=== PATIENT | female | born 1950 | race Caucasian/White ===

== ENCOUNTER → 2017-12-02 06:50 | Outpatient (CLI) | payer OTHER, SELFPAY ==
[2017-12-02 08:12] LABS: Hemoglobin A1C% w Est Avg Glu 7.5 % (4.0-6.0)
[2017-12-02 08:14] LABS: Alanine Aminotransferase 28 IU/L (9-52); Albumin 4.5 g/dL (3.5-5.0); Albumin Globulin Ratio 1.6 (1.0-2.8); Alkaline Phosphatase 136 U/L (38-126); Aspartate Aminotransferase 23 IU/L (14-36); BUN Creatinine Ratio 48.8 (6-22); Bilirubin Total 0.5 mg/dL (0.2-1.3); Calcium 9.4 mg/dL (8.4-10.2); Estimated Glomerular Filt Rate > 60.0 mL/min (>60); Globulin 2.9 g/dL (1.7-4.1); Glucose 161 mg/dL (80-110); HEMOLYSIS < 15 (0-50); Potassium 4.1 mmol/L (3.4-5.1); Sodium 139 mmol/L (137-145); Total Protein 7.4 g/dL (6.3-8.2)
== END ==
PROVIDERS: PCP Internal Medicine; Visit Provider Internal Medicine
DX: I10 Essential (primary) hypertension (principal); E11.9 Type 2 diabetes mellitus without complications
CPT/HCPCS: 36415; 80053; 83036

== ENCOUNTER → 2018-03-01 07:08 | Outpatient (CLI) | payer OTHER, MEDICARE, SELFPAY ==
[2018-03-01 08:32] LABS: BUN Creatinine Ratio 38.9 (6-22); Blood Urea Nitrogen 35 mg/dL (7-17); Calcium 10.1 mg/dL (8.4-10.2); Carbon Dioxide 28 mmol/L (22-32); Chloride 101 mmol/L (98-107); Estimated Glomerular Filt Rate > 60.0 mL/min (>60); Glucose 169 mg/dL (80-110); HEMOLYSIS < 15 (0-50); Sodium 140 mmol/L (137-145)
[2018-03-01 08:33] LABS: Hemoglobin A1C% w Est Avg Glu 7.5 % (4.0-6.0)
== END ==
PROVIDERS: PCP Internal Medicine; Visit Provider Internal Medicine
DX: E11.65 Type 2 diabetes mellitus with hyperglycemia (principal)
CPT/HCPCS: 36415; 80048; 83036

== ENCOUNTER → 2018-05-28 06:44 | Outpatient (CLI) | payer OTHER, SELFPAY ==
[2018-05-28 08:12] LABS: Hemoglobin A1C% w Est Avg Glu 8.7 % (4.0-6.0)
[2018-05-28 08:31] LABS: BUN Creatinine Ratio 38.9 (6-22); Blood Urea Nitrogen 35 mg/dL (7-17); Carbon Dioxide 26 mmol/L (22-32); Chloride 102 mmol/L (98-107); Estimated Glomerular Filt Rate > 60.0 mL/min (>60); Glucose 176 mg/dL (80-110); HEMOLYSIS < 15 (0-50); Potassium 5.1 mmol/L (3.4-5.1); Sodium 142 mmol/L (137-145)
== END ==
PROVIDERS: PCP Internal Medicine; Visit Provider Internal Medicine
DX: E11.65 Type 2 diabetes mellitus with hyperglycemia (principal); I10 Essential (primary) hypertension
CPT/HCPCS: 36415; 80048; 83036

== ENCOUNTER → 2018-09-06 06:47 | Outpatient (CLI) | payer OTHER, SELFPAY ==
[2018-09-06 08:58] LABS: Hemoglobin A1C% w Est Avg Glu 7.7 % (4.0-6.0)
[2018-09-06 09:13] LABS: Blood Urea Nitrogen 36 mg/dL (7-17); Calcium 9.9 mg/dL (8.4-10.2); Carbon Dioxide 25 mmol/L (22-32); Chloride 102 mmol/L (98-107); Estimated Glomerular Filt Rate > 60.0 mL/min (>60); Glucose 153 mg/dL (80-110); HEMOLYSIS < 15 (0-50); Potassium 4.8 mmol/L (3.4-5.1); Sodium 140 mmol/L (137-145)
[2018-09-06 10:27] LABS: Creatinine Urine Random 64.1 mg/dL
[2018-09-06 10:29] LABS: Microalbumi Creatinin Ratio Ur 57.7 ug/mg CR (<30); Microalbumin Urine Random 3.7 mg/dL (0-1.6)
== END ==
PROVIDERS: PCP Internal Medicine; Visit Provider Internal Medicine
DX: E11.9 Type 2 diabetes mellitus without complications (principal); E11.65 Type 2 diabetes mellitus with hyperglycemia
CPT/HCPCS: 36415; 80048; 82043; 82570; 83036

== ENCOUNTER → 2018-11-04 09:15 | Outpatient (CLI) | payer OTHER, SELFPAY ==
--- NOTE | 2018-11-04 | DI.MG.S_ITS ---
BILATERAL DIGITAL SCREENING MAMMOGRAM 3D/2D WITH CAD: 11/04/2018 CLINICAL: Routine screening. Comparison is made to exams dated: 10/31/2017 mammogram, 10/27/2016 mammogram, and 10/19/2015 mammogram - [facility]. There are scattered fibroglandular elements in both breasts. Current study was also evaluated with a Computer Aided Detection (CAD) system. No significant masses, calcifications, or other findings are seen in either breast. There has been no significant interval change. IMPRESSION: NEGATIVE There is no mammographic evidence of malignancy. A 1 year screening mammogram is recommended. This exam was interpreted at Station ID: [id number]. NOTE: For mammograms, a report in lay terms will be sent to the patient. Approximately 15% of breast malignancies will not be visualized mammographically. In the management of a palpable breast mass, a negative mammogram must not discourage biopsy of a clinically suspicious lesion. Electronically Signed By: Casey juarez/[place]:11/04/2018 11:15:26 copy to: Ray Gordon letter sent: Normal Exam ACR BI-RADS Category 1: Negative 3341F
== END ==
PROVIDERS: PCP Internal Medicine; Visit Provider Internal Medicine
DX: Z12.31 Encounter for screening mammogram for malignant neoplasm of breast (principal)
CPT/HCPCS: 77063; 77067

== ENCOUNTER → 2018-12-09 10:37 | Outpatient (CLI) | payer MEDICARE, OTHER, SELFPAY ==
[2018-12-09 12:24] LABS: Alanine Aminotransferase 28 IU/L (9-52); Albumin 4.3 g/dL (3.5-5.0); Albumin Globulin Ratio 1.8 (1.0-2.8); Alkaline Phosphatase 120 U/L (38-126); Aspartate Aminotransferase 23 IU/L (14-36); BUN Creatinine Ratio 44.4 (6-22); Bilirubin Total 0.4 mg/dL (0.2-1.3); Blood Urea Nitrogen 40 mg/dL (7-17); Calcium 10.2 mg/dL (8.4-10.2); Carbon Dioxide 25 mmol/L (22-32); Chloride 103 mmol/L (98-107); Estimated Glomerular Filt Rate > 60.0 mL/min (>60); Globulin 2.4 g/dL (1.7-4.1); Glucose 106 mg/dL (80-110); HEMOLYSIS < 15 (0-50); Potassium 5.3 mmol/L (3.4-5.1); Sodium 139 mmol/L (137-145); Total Protein 6.7 g/dL (6.3-8.2)
[2018-12-09 12:25] LABS: Hemoglobin A1C% w Est Avg Glu 6.9 % (4.0-6.0)
== END ==
PROVIDERS: PCP Internal Medicine; Visit Provider Internal Medicine
DX: E11.65 Type 2 diabetes mellitus with hyperglycemia (principal); E66.01 Morbid (severe) obesity due to excess calories; I10 Essential (primary) hypertension; Z68.41 Body mass index [BMI] 40.0-44.9, adult
CPT/HCPCS: 36415; 80053; 83036

== ENCOUNTER → 2019-03-16 12:45 | Outpatient (CLI) | payer MEDICARE, OTHER, SELFPAY | PROVIDERS: PCP Internal Medicine | DX: M85.80 Other specified disorders of bone density and structure, unspecified site (principal) | CPT/HCPCS: 77080; 77081 ==

== ENCOUNTER → 2019-05-05 07:58 | Outpatient (CLI) | payer MEDICARE, OTHER, SELFPAY ==
[2019-05-05 09:41] LABS: Alanine Aminotransferase 18 IU/L (9-52); Albumin 4.5 g/dL (3.5-5.0); Albumin Globulin Ratio 1.7 (1.0-2.8); Alkaline Phosphatase 136 U/L (38-126); Aspartate Aminotransferase 26 IU/L (14-36); Bilirubin Total 0.4 mg/dL (0.2-1.3); Blood Urea Nitrogen 43 mg/dL (7-17); Calcium 10.1 mg/dL (8.4-10.2); Carbon Dioxide 25 mmol/L (22-32); Chloride 104 mmol/L (98-107); Estimated Glomerular Filt Rate 55.5 mL/min (>60); Globulin 2.7 g/dL (1.7-4.1); Glucose 137 mg/dL (80-110); HEMOLYSIS < 15 (0-50); Sodium 138 mmol/L (137-145); Total Protein 7.2 g/dL (6.3-8.2)
[2019-05-05 15:58] LABS: Hemoglobin A1C% w Est Avg Glu 6.4 % (4.0-6.0)
== END ==
PROVIDERS: PCP Internal Medicine; Visit Provider Internal Medicine
DX: E11.9 Type 2 diabetes mellitus without complications (principal); E66.01 Morbid (severe) obesity due to excess calories; E78.2 Mixed hyperlipidemia; I10 Essential (primary) hypertension; Z68.41 Body mass index [BMI] 40.0-44.9, adult
CPT/HCPCS: 36415; 80053; 83036

== ENCOUNTER 2019-09-01 08:38 | Day surgery (SDC) | payer MEDICARE, OTHER, SELFPAY ==
[2019-09-01] VITALS (7 sets, daily range): BP systolic 80–125; BP diastolic 36–69; PULSE 15–59; RESP 12–68; TEMP 36.1–36.4; O2SAT 15–100; BMI 38.7
[2019-09-01] MEDS: SODIUM CHLORIDE 0.9% 1,000 ML 200 ML IV (09:51)
--- NOTE | 2019-09-01 10:03 | PM.HP.1 ---
History of Present Illness History of Present Illness Date Patient Seen: 09/01/19 Time Patient Seen: 10:03 Chief complaint: [id number] Narrative: Patient is a woman here for screening colonoscopy. Last exam was 5 years ago. She has a personal history of polyps. No family history of colon cancer. Patient History Medical History Abscess of left lung with pneumonia (Acute) Allergic rhinitis (Chronic 1965) Anxiety (Chronic ~1959) Asthma (Chronic 1991) Chicken pox (Resolved 1968) Chronic cough (Resolved) Controlled diabetes mellitus (Chronic 2012) Eczema (Chronic ~1979) Essential hypertension (Chronic 03/19/11) Finger fracture (Resolved 1968) Gout (Chronic) H/O: pneumonia (Acute) Hammertoe, bilateral (Resolved) Hemorrhoids (Resolved 2011) Herpes (Chronic 1989) History of adenomatous polyp of colon (Inactive 2009) History of renal calculi (Inactive 2009) Lumbar spine pain (Chronic 1965) Measles (Resolved 1958) Metabolic syndrome (Chronic) Migraines (Chronic ~1979) Mixed hyperlipidemia (Chronic 03/19/11) Morbid obesity with body mass index (BMI) of 40.0 to 44.9 in adult (Chronic 12/25/15) Mumps (Resolved 1997) Osteopenia (Chronic 03/06/17) Recurrent major depressive disorder, in partial remission (Chronic 03/19/11) Rosacea (Chronic 09/25/15) Scoliosis (Chronic 1965) Surgical site infection (Resolved 08/23/14) Type 2 diabetes mellitus with hyperglycemia (Chronic 10/26/12) Wears glasses (Acute) Surgical History History of foot surgery (Resolved 12/2008) History of foot surgery (Resolved 07/16/09) History of lithotripsy (Resolved 02/24/10) History of lithotripsy (Resolved 05/28/10) History of surgery (Resolved 08/23/14) History of surgery (Resolved 08/25/14) Status post bunionectomy (Resolved) Status post laminectomy (Resolved 07/27/14) Family & Social History Family History Father Lung cancer Hypertension Stroke Alcoholic High cholesterol Grandfather Heart disease Heart attack Mother Family hx colonic polyps Hypertension Dementia Kidney failure Grandmother Cirrhosis Broken hip Grandmother Dementia Grandfather Appendicitis Sister No problems noted. Social History: household members spouse lives independently Yes caregiver/support person No Tobacco & Substance use: Smoking Status Never smoker alcohol intake never Substance Use Type does not use Meds Home Medications and Allergies Home Medications Medication Instructions Recorded Confirmed Type calcium carbonate-vitamin D3 500 mg PO BID #0 04/09/11 09/01/19 History [Oyster Shell Calcium-Vit D3] fluocinolone acetonide oil 20 ml OT PRN #0 06/05/11 09/01/19 History [DermOtic Oil] cholecalciferol (vitamin D3) 1,000 unit PO QDAY #0 06/08/17 09/01/19 History [Vitamin D3] fluticasone propionate 1 spray INTRANASAL HS #16 gm 09/28/17 09/01/19 Rx alprazolam 0.5 mg tablet See Rx Instructions PO TID PRN #90 09/13/18 09/01/19 Rx tab albuterol sulfate 90 mcg/actuation 1 puff INHALATION Q4-6H PRN #18 10/08/18 09/01/19 Rx aerosol inhaler gram metronidazole 0.75 % topical cream 1 applictn TOPICAL BID #0 gram 12/17/18 09/01/19 History triamcinolone acetonide 0.1 % 1 applictn TOP BID #30 gram 12/17/18 09/01/19 Rx topical ointment gemfibrozil 600 mg PO BID #180 tab 12/27/18 09/01/19 Rx allopurinol 300 mg PO Q DAY #30 tab 02/21/19 09/01/19 Rx sertraline 50 mg tablet 100 mg PO QDAY #180 tab 02/21/19 09/01/19 Rx acyclovir 400 mg tablet 400 mg PO BID PRN #60 tab 03/29/19 09/01/19 Rx clonazepam 0.5 mg tablet See Rx Instructions .ROUTE 05/05/19 09/01/19 Rx .COMPLEX #270 tab clobetasol 0.05 % scalp solution 1 applictn TOP BID PRN 05/13/19 09/01/19 History metformin 1,000 mg tablet See Rx Instructions .ROUTE 05/16/19 09/01/19 Rx .COMPLEX #180 tablet lisinopril 10 mg tablet 10 mg PO DAILY #90 tab 07/25/19 09/01/19 Rx meloxicam [Mobic] 15 mg PO DAILY 09/01/19 09/01/19 History Allergies Allergy/AdvReac Type Severity Reaction Status Date / Time latex [LATEX] Allergy Severe RASH/ITCHING/NAUSEA Verified 09/01/19 08:56 AND VOMITING pravastatin [PRAVASTATIN] Allergy Severe HIVES Verified 09/01/19 08:56 sulfamethizole Allergy Severe HIVES Verified 09/01/19 08:56 [SULFAMETHIZOLE] trimethoprim [TRIMETHOPRIM] Allergy Severe HIVES Verified 09/01/19 08:56 onion Allergy Intermediate HIVES Verified 09/01/19 08:56 tomato Allergy Intermediate HIVES Verified 09/01/19 08:56 simvastatin [SIMVASTATIN] AdvReac Mild NAUSEA/ Verified 09/01/19 08:56 MUSCULAR PAIN INTERNAL SUTURES Allergy Severe THEY DO Uncoded 05/13/19 09:03 NOT DISOLVE WALNUTS Allergy Severe HIVES Uncoded 05/13/19 09:03 CANTELOPE Allergy Intermediate HIVES Uncoded 05/13/19 09:03 Review of Systems Review of Systems ROS: Yes All systems reviewed with the patient and are negative except as otherwise documented Exam Vital Signs (past 8 hours): - 09/01/19 09:17 Temperature 97.0 F L Pulse Rate 15 L Respiratory Rate 68 H Blood Pressure 125/69 Pulse Oximetry 15 L Oxygen Delivery Method Room Air Oxygen Flow Rate 98 Narrative Exam Narrative: Pleasant cooperative patient no apparent distress. Lungs are clear to auscultation. No rales or rhonchi. Heart regular rate and rhythm no murmur gallop. Abdomen is soft nontender without mass. No obvious hernias. Patient is alert and oriented x3. Assessment & Plan Assessment & Plan narrative: The patient for a screening colonoscopy. I have discussed the procedure with them. Risks of bleeding, perforation which would necessitate major operation, failure to find remove all lesions, the potential tattoo were all discussed. All questions were answered. They wished to proceed.
--- NOTE | 2019-09-01 10:04 | PM.PREOP ---
Pre-operative Note Interval Note History & Physical reviewed/Exam performed by Physician: Yes Changes to H&P: No ASA Class (for procedural sedation): II
[2019-09-01] MEDS: fentaNYL 250 MCG/5 ML INJ IV (10:11)
[2019-09-01] MEDS: MIDAZOLAM 5 MG/ML VIAL 1 MG IV (10:15)
--- NOTE | 2019-09-01 10:25 | SUR.OPER ---
GLASSES IN LABELED CASE TO PACU WITH PATIENT
--- NOTE | 2019-09-01 10:39 | PM.OP.ENDO ---
Operative Date/Time/Diagnoses Date of procedure: 09/01/19 Time of procedure: 10:39 Pre-op diagnosis: History of polyps Post-op diagnosis: same Procedure & Clinicians Study performed: Colonoscopy Same procedure as scheduled: Yes Indications: Screening. Last exam 5 years ago. Procedure Notes SCOAP/Timeout: Performed Procedure in detail: The patient was placed in the left lateral decubitus position and underwent IV sedation directed by the surgeon consisting of fentanyl and Versed. Digital exam was unremarkable. The scope was inserted and advanced through the rectum into the sigmoid, descending, transverse, and ascending colon. Patient was noted to have sigmoid diverticulosis. The cecum was reached identified by the ileocecal valve and the appendiceal opening. No Polyps were found. The scope ultimately was retroflexed in the rectum. The appearance was normal. The scope was removed and the patient tolerated the procedure well. Prep was very good Scope withdrawal time: 7 minutes Sedation minutes: 21 Findings: diverticulosis Post-procedure Recommendations: Colonscopy in 5 years (Due to history of adenomatous polyps) Follow up: as needed Disposition: PACU
== END 2019-09-01 11:44 | disposition home or self-care (01) ==
PROVIDERS: PCP Internal Medicine; Referring Provider Specialist; Visit Provider Specialist
PROC: 0DJD8ZZ Inspection of Lower Intestinal Tract, Via Natural or Artificial Opening Endoscopic (ICD-10-PCS; CPT 45378; principal; 2019-09-01 09:45)
DX: Z12.11 Encounter for screening for malignant neoplasm of colon (principal); Z86.010 Personal history of colon polyps; K57.30 Diverticulosis of large intestine without perforation or abscess without bleeding
CPT/HCPCS: G0105; 99152; J2250; J3010

== ENCOUNTER → 2019-10-31 08:22 | Outpatient (CLI) | payer MEDICARE, OTHER, SELFPAY ==
[2019-10-31 09:36] LABS: Alanine Aminotransferase 16 IU/L (<35); Albumin 4.6 g/dL (3.5-5.0); Albumin Globulin Ratio 1.5 (1.0-2.8); Alkaline Phosphatase 143 U/L (38-126); Aspartate Aminotransferase 27 IU/L (14-36); BUN Creatinine Ratio 41.2 (6-22); Bilirubin Total 0.3 mg/dL (0.2-1.3); Blood Urea Nitrogen 47 mg/dL (7-17); Calcium 10.3 mg/dL (8.4-10.2); Carbon Dioxide 24 mmol/L (22-32); Chloride 107 mmol/L (98-107); Cholesterol 167 mg/dL (140-199); Estimated Glomerular Filt Rate 47.5 mL/min (>60); Glucose 133 mg/dL (80-110); HDL Cholesterol 50 mg/dL (40-60); HEMOLYSIS < 15 (0-50); LDL Cholesterol Calculated 96 mg/dL (<100); Potassium 5.1 mmol/L (3.4-5.1); Sodium 139 mmol/L (137-145); Total Protein 7.6 g/dL (6.3-8.2); Triglycerides 107 mg/dL (35-150)
[2019-10-31 09:45] LABS: Hemoglobin A1C% w Est Avg Glu 6.5 % (4.0-6.0)
== END ==
PROVIDERS: PCP Internal Medicine; Referring Provider Internal Medicine; Visit Provider Internal Medicine
DX: E11.9 Type 2 diabetes mellitus without complications (principal); E88.81 Metabolic syndrome and other insulin resistance; I10 Essential (primary) hypertension
CPT/HCPCS: 36415; 80053; 80061; 83036

== ENCOUNTER → 2019-12-31 14:22 | Outpatient (CLI) | payer MEDICARE, OTHER, SELFPAY ==
--- NOTE | 2019-12-31 14:25 | DI.MG.S_ITS ---
BILATERAL DIGITAL SCREENING MAMMOGRAM 3D/2D WITH CAD: 12/31/2019 CLINICAL: Routine screening. Comparison is made to exams dated: 11/04/2018 mammogram, 10/31/2017 mammogram, and 10/27/2016 mammogram - [facility]. There are scattered fibroglandular elements in both breasts. Current study was also evaluated with a Computer Aided Detection (CAD) system. No significant masses, calcifications, or other findings are seen in either breast. There has been no significant interval change. IMPRESSION: NEGATIVE There is no mammographic evidence of malignancy. A 1 year screening mammogram is recommended. This exam was interpreted at Station ID: [id number]. NOTE: For mammograms, a report in lay terms will be sent to the patient. Approximately 15% of breast malignancies will not be visualized mammographically. In the management of a palpable breast mass, a negative mammogram must not discourage biopsy of a clinically suspicious lesion. Electronically Signed By: Casey cobb/argentina:01/02/2020 09:02:18 letter sent: Normal Exam ACR BI-RADS Category 1: Negative 3341F
== END ==
PROVIDERS: PCP Internal Medicine; Referring Provider Internal Medicine; Visit Provider Internal Medicine
DX: Z12.31 Encounter for screening mammogram for malignant neoplasm of breast (principal)
CPT/HCPCS: 77063; 77067

== ENCOUNTER → 2020-05-04 08:12 | Outpatient (CLI) | payer MEDICARE, OTHER, SELFPAY ==
[2020-05-04 09:06] LABS: Hemoglobin A1C% w Est Avg Glu 6.4 % (4.0-6.0)
[2020-05-04 09:30] LABS: Alanine Aminotransferase 17 IU/L (<35); Albumin 4.2 g/dL (3.5-5.0); Albumin Globulin Ratio 1.6 (1.0-2.8); Alkaline Phosphatase 138 U/L (38-126); Aspartate Aminotransferase 25 IU/L (14-36); BUN Creatinine Ratio 37.1 (6-22); Bilirubin Total 0.4 mg/dL (0.2-1.3); Blood Urea Nitrogen 46 mg/dL (7-17); Carbon Dioxide 25 mmol/L (22-32); Chloride 106 mmol/L (98-107); Cholesterol 168 mg/dL (140-199); Estimated Glomerular Filt Rate 43.1 mL/min (>60); Globulin 2.6 g/dL (1.7-4.1); Glucose 126 mg/dL (80-110); HDL Cholesterol 53 mg/dL (40-60); HEMOLYSIS < 15 (0-50); LDL Cholesterol Calculated 92 mg/dL (<100); Potassium 5.2 mmol/L (3.4-5.1); Sodium 139 mmol/L (137-145); Total Protein 6.8 g/dL (6.3-8.2); Triglycerides 113 mg/dL (35-150)
== END ==
PROVIDERS: PCP Internal Medicine; Referring Provider Internal Medicine; Visit Provider Internal Medicine
DX: E11.9 Type 2 diabetes mellitus without complications (principal); E78.2 Mixed hyperlipidemia; E88.81 Metabolic syndrome and other insulin resistance; I10 Essential (primary) hypertension
CPT/HCPCS: 36415; 80053; 80061; 83036

== ENCOUNTER → 2020-11-02 07:56 | Outpatient (CLI) | payer MEDICARE, OTHER, SELFPAY ==
[2020-11-02 08:35] LABS: Hemoglobin A1C% w Est Avg Glu 6.4 % (4.0-6.0)
[2020-11-02 09:48] LABS: Alanine Aminotransferase 21 IU/L (<35); Albumin 4.3 g/dL (3.5-5.0); Albumin Globulin Ratio 1.5 (1.0-2.8); Alkaline Phosphatase 152 U/L (38-126); Aspartate Aminotransferase 34 IU/L (14-36); BUN Creatinine Ratio 36.1 (6-22); Bilirubin Total 0.3 mg/dL (0.2-1.3); Blood Urea Nitrogen 44 mg/dL (7-17); Calcium 10.3 mg/dL (8.4-10.2); Carbon Dioxide 23 mmol/L (22-32); Chloride 106 mmol/L (98-107); Estimated Glomerular Filt Rate 43.8 mL/min (>60); Globulin 2.8 g/dL (1.7-4.1); Glucose 127 mg/dL (80-110); HEMOLYSIS < 15 (0-50); Potassium 4.8 mmol/L (3.4-5.1); Sodium 137 mmol/L (137-145); Total Protein 7.1 g/dL (6.3-8.2)
== END ==
PROVIDERS: PCP Internal Medicine; Referring Provider Internal Medicine; Visit Provider Internal Medicine
DX: E11.9 Type 2 diabetes mellitus without complications (principal); E78.2 Mixed hyperlipidemia; I10 Essential (primary) hypertension
CPT/HCPCS: 36415; 80053; 83036

== ENCOUNTER → 2020-12-31 16:34 | Outpatient (CLI) | payer MEDICARE, OTHER, SELFPAY ==
--- NOTE | 2020-12-31 16:35 | DI.MG.S_ITS ---
BILATERAL DIGITAL SCREENING MAMMOGRAM 3D/2D WITH CAD: 12/31/2020 CLINICAL: Routine screening. Comparison is made to exams dated: 12/31/2019 mammogram, 11/04/2018 mammogram, 10/31/2017 mammogram, 10/27/2016 mammogram, and 10/19/2015 mammogram - [facility]. The tissue of both breasts is predominantly fatty. Current study was also evaluated with a Computer Aided Detection (CAD) system. No significant masses, calcifications, or other findings are seen in either breast. There has been no significant interval change. IMPRESSION: NEGATIVE There is no mammographic evidence of malignancy. A 1 year screening mammogram is recommended. This exam was interpreted at Station ID: [id number]. NOTE: For mammograms, a report in lay terms will be sent to the patient. Approximately 15% of breast malignancies will not be visualized mammographically. In the management of a palpable breast mass, a negative mammogram must not discourage biopsy of a clinically suspicious lesion. Electronically Signed By: Clark grace/argentina:12/31/2020 17:25:41 letter sent: Normal Exam ACR BI-RADS Category 1: Negative 3341F
== END ==
PROVIDERS: PCP Internal Medicine; Referring Provider Internal Medicine; Visit Provider Internal Medicine
DX: Z12.31 Encounter for screening mammogram for malignant neoplasm of breast (principal)
CPT/HCPCS: 77063; 77067

== ENCOUNTER → 2021-05-08 09:00 | Outpatient (CLI) | payer MEDICARE, OTHER, SELFPAY ==
[2021-05-08 10:18] LABS: Hemoglobin A1C% w Est Avg Glu 6.2 % (4.0-6.0)
[2021-05-08 11:13] LABS: Alanine Aminotransferase 24 IU/L (<35); Albumin 4.4 g/dL (3.5-5.0); Albumin Globulin Ratio 1.8 (1.0-2.8); Alkaline Phosphatase 133 U/L (38-126); Aspartate Aminotransferase 36 IU/L (14-36); BUN Creatinine Ratio 32.3 (6-22); Bilirubin Total 0.3 mg/dL (0.2-1.3); Blood Urea Nitrogen 41 mg/dL (7-17); Calcium 10.5 mg/dL (8.4-10.2); Carbon Dioxide 28 mmol/L (22-32); Chloride 103 mmol/L (98-107); Estimated Glomerular Filt Rate 41.8 mL/min (>60); Globulin 2.5 g/dL (1.7-4.1); Glucose 115 mg/dL (80-110); HEMOLYSIS < 15 (0-50); Sodium 140 mmol/L (137-145); Total Protein 6.9 g/dL (6.3-8.2)
[2021-05-08 11:34] LABS: Potassium 6.4 mmol/L (3.4-5.1)
== END ==
PROVIDERS: PCP Internal Medicine; Referring Provider Internal Medicine; Visit Provider Internal Medicine
DX: E11.9 Type 2 diabetes mellitus without complications (principal); E78.2 Mixed hyperlipidemia; I10 Essential (primary) hypertension; N18.31 Chronic kidney disease, stage 3a
CPT/HCPCS: 36415; 80053; 83036

== ENCOUNTER → 2021-05-13 12:49 | Outpatient (CLI) | payer MEDICARE, OTHER, SELFPAY ==
[2021-05-13 13:53] LABS: HEMOLYSIS < 15 (0-50); Potassium 5.1 mmol/L (3.4-5.1)
== END ==
PROVIDERS: PCP Internal Medicine; Referring Provider Internal Medicine; Visit Provider Internal Medicine
DX: E87.5 Hyperkalemia (principal)
CPT/HCPCS: 36415; 84132

== ENCOUNTER → 2021-11-06 08:18 | Outpatient (CLI) | payer MEDICARE, OTHER, SELFPAY ==
[2021-11-06 10:18] LABS: Hemoglobin A1C% w Est Avg Glu 6.4 % (4.0-6.0)
[2021-11-06 10:29] LABS: Alanine Aminotransferase 16 IU/L (<35); Albumin 4.3 g/dL (3.5-5.0); Albumin Globulin Ratio 1.8 (1.0-2.8); Alkaline Phosphatase 132 U/L (38-126); Aspartate Aminotransferase 27 IU/L (14-36); BUN Creatinine Ratio 36.9 (6-22); Bilirubin Total 0.3 mg/dL (0.2-1.3); Blood Urea Nitrogen 48 mg/dL (7-17); Calcium 9.8 mg/dL (8.4-10.2); Carbon Dioxide 23 mmol/L (22-32); Chloride 110 mmol/L (98-107); Cholesterol 150 mg/dL (140-199); Estimated Glomerular Filt Rate 45 mL/min (>60); Globulin 2.4 g/dL (1.7-4.1); Glucose 104 mg/dL (80-110); HDL Cholesterol 49 mg/dL (40-60); HEMOLYSIS < 15 (0-50); LDL Cholesterol Calculated 82 mg/dL (<100); Sodium 142 mmol/L (137-145); Total Protein 6.7 g/dL (6.3-8.2); Triglycerides 96 mg/dL (35-150)
[2021-11-06 10:30] LABS: Potassium 5.4 mmol/L (3.4-5.1)
[2021-11-06 10:41] LABS: LDL Cholesterol Direct < 30 mg/dL (<100)
== END ==
PROVIDERS: PCP Internal Medicine; Referring Provider Internal Medicine; Visit Provider Internal Medicine
DX: E11.9 Type 2 diabetes mellitus without complications (principal); E78.2 Mixed hyperlipidemia; I10 Essential (primary) hypertension; N18.31 Chronic kidney disease, stage 3a
CPT/HCPCS: 36415; 80053; 80061; 83036; 83721

== ENCOUNTER → 2022-01-02 07:45 | Outpatient (CLI) | payer MEDICARE, OTHER, SELFPAY ==
--- NOTE | 2022-01-02 | DI.MG.S_ITS ---
BILATERAL DIGITAL SCREENING MAMMOGRAM 3D/2D WITH CAD: 01/02/2022 CLINICAL: Routine screening. Comparison is made to exams dated: 12/31/2020 mammogram, 12/31/2019 mammogram, 11/04/2018 mammogram, 10/31/2017 mammogram, and 10/27/2016 mammogram - [facility]. The tissue of both breasts is predominantly fatty. Current study was also evaluated with a Computer Aided Detection (CAD) system. No significant masses, calcifications, or other findings are seen in either breast. There has been no significant interval change. IMPRESSION: NEGATIVE There is no mammographic evidence of malignancy. A 1 year screening mammogram is recommended. This exam was interpreted at Station ID: [id number]. NOTE: For mammograms, a report in lay terms will be sent to the patient. Approximately 15% of breast malignancies will not be visualized mammographically. In the management of a palpable breast mass, a negative mammogram must not discourage biopsy of a clinically suspicious lesion. Electronically Signed By: Clark grace/argentina:01/02/2022 09:52:14 letter sent: Normal Exam ACR BI-RADS Category 1: Negative 3341F
== END ==
PROVIDERS: PCP Internal Medicine; Referring Provider Internal Medicine; Visit Provider Internal Medicine
DX: Z12.31 Encounter for screening mammogram for malignant neoplasm of breast (principal)
CPT/HCPCS: 77063; 77067

== ENCOUNTER → 2022-04-24 06:50 | Outpatient (CLI) | payer MEDICARE, OTHER, SELFPAY ==
[2022-04-24 09:33] LABS: Hemoglobin A1C% w Est Avg Glu 6.3 % (4.0-6.0)
[2022-04-24 09:55] LABS: Alanine Aminotransferase 26 IU/L (<35); Albumin 4.4 g/dL (3.5-5.0); Albumin Globulin Ratio 1.8 (1.0-2.8); Alkaline Phosphatase 192 U/L (38-126); Aspartate Aminotransferase 32 IU/L (14-36); BUN Creatinine Ratio 38.6 (6-22); Bilirubin Total 0.4 mg/dL (0.2-1.3); Blood Urea Nitrogen 49 mg/dL (7-17); Calcium 9.5 mg/dL (8.4-10.2); Carbon Dioxide 19 mmol/L (22-32); Chloride 107 mmol/L (98-107); Cholesterol 172 mg/dL (140-199); Estimated Glomerular Filt Rate 46 mL/min (>60); Globulin 2.5 g/dL (1.7-4.1); Glucose 107 mg/dL (80-110); HDL Cholesterol 57 mg/dL (40-60); HEMOLYSIS < 15 (0-50); LDL Cholesterol Calculated 99 mg/dL (<100); Sodium 139 mmol/L (137-145); Total Protein 6.9 g/dL (6.3-8.2); Triglycerides 79 mg/dL (35-150)
[2022-04-24 09:57] LABS: Potassium 5.4 mmol/L (3.4-5.1)
== END ==
PROVIDERS: Family Provider Internal Medicine; PCP Internal Medicine; Referring Provider Internal Medicine; Visit Provider Internal Medicine
DX: E11.9 Type 2 diabetes mellitus without complications (principal); E78.2 Mixed hyperlipidemia; I10 Essential (primary) hypertension; N18.31 Chronic kidney disease, stage 3a
CPT/HCPCS: 36415; 80053; 80061; 83036

== ENCOUNTER 2022-04-28 15:15 | Outpatient (RCR) | payer MEDICARE, OTHER, SELFPAY ==
--- NOTE | 2022-01-13 17:48 | PT.OIE ---
Current Diagnoses Pain in unspecified hip (01/13/22) Low back pain, unspecified (01/13/22) Difficulty in walking, not elsewhere classified (01/13/22) Unspecified abnormalities of gait and mobility (01/13/22) Abnormal posture (01/13/22) Weakness (01/13/22) Past Medical History (Last Updated 11/09/20 @ 09:21 by Ray Gordon MD) Abscess of left lung with pneumonia Allergic rhinitis (1965) Anxiety (~1959) Asthma (1991) Chronic cough Chronic renal failure, stage 3a Controlled diabetes mellitus (2012) Eczema (~1979) Essential hypertension (03/19/11) Finger fracture (1968) Gout H/O: pneumonia Hammertoe, bilateral Hemorrhoids (2011) Herpes (1989) History of adenomatous polyp of colon (2009) History of renal calculi (2009) Lumbar spine pain (1965) Measles (1958) Metabolic syndrome Migraines (~1979) Mixed hyperlipidemia (03/19/11) Morbid obesity with body mass index (BMI) of 40.0 to 44.9 in adult (12/25/15) Mumps (1997) Osteopenia (03/06/17) Recurrent major depressive disorder, in partial remission (03/19/11) Rosacea (09/25/15) Scoliosis (1965) Surgical site infection (08/23/14) Type 2 diabetes mellitus with hyperglycemia (10/26/12) Wears glasses Past Surgical History (Last Reviewed 03/06/20 @ 09:36 by Alberto Pace MD) History of foot surgery (12/2008) History of foot surgery (07/16/09) History of lithotripsy (02/24/10) History of lithotripsy (05/28/10) History of surgery (08/23/14) History of surgery (08/25/14) Status post bunionectomy Status post laminectomy (07/27/14) Visit Care Team Role Provider Type Ray Gordon MD Attending Provider Physician Family Provider Primary Care Provider Referring Provider Specialty: Internal Medicine Address: [address] [place] [address], [address] [place] [address], [id number] Email: [email or web address] Therapy Initial Evaluation PT-OP-A Visit Information Start: 01/09/22 17:31 Freq: Status: Active Protocol: Document 01/13/22 14:35 [facility] (Rec: 01/13/22 15:28 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 (Rec: 01/13/22 15:28 [facility] [id number]) Current Condition History of Current Condition Onset Date worsening over past couple years Current Complaints LBP History of Current Condition Pt reprots back surgery L3-5 for fusion in 2014 and did do some PT after that. She had PT for that and since then has had to be careful re: lifting. She also has scoliosis. Pt reports the past 2 years, she feels like her back is bending fwd w/walking and when she sits and reads she bends fwd. She feels like she walks w/ like a rolling motion and L heel scrapes the ground. 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 Pt reports even standing even a couple min is painful to back. Pt does show her dog and she has trouble lifting him to the table if she has to do it too many times (dog 36 lb). Pt had hip dysplagia as baby and wore braces laying down. 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 She had pain thast was getting worse and worse which is what led to surgery. No specific injury. Reports LBP from [employer] and on. Pt still does do some of her pool exercises from last time and goes for a mile walk a day (is harder if done at end of day. Prior Treatments and Tests PT after surgery that was helpful; been to chiro (says back is twisted & he gets things straightens it out and it helps for 2 weeks)-goes 1x/ month at most up to every couple months Treatment Goals Patient/Caregiver Goals Improve strength of hips and improve gait pattern, determine if she needs to go see surgeon again, be abl eto go up/down stairs w/o rail use , dec back pain PT-OP-C Subjective Start: 01/09/22 17:31 Freq: Status: Active Protocol: Document 01/13/22 14:35 [facility] (Rec: 01/13/22 15:28 [facility] [id number]) Patient Questionnaires Oswestry Low Back Index Oswestry Score 50 OP-PT Pain Assessment Location LBP Pain Location Details lumbar spine B Intensity 5 Scale Used Numeric (0 - 10) Description Aching,Sharp Description- Other initially sharp then turns to an ache Frequency Frequent Variations/Patterns L lat hp and buttocks Pain Aggravating Factors Standing,Lifting Other Pain Aggravating Factors get up after sit extended, work Pain Alleviating Factors Cold,Lying Supine,Sitting, Massage Other Pain Alleviating Factors move around PT-OP-D Balance Start: 01/09/22 17:31 Freq: Status: Active Protocol: Document 01/13/22 14:35 [facility] (Rec: 01/13/22 15:28 [facility] [id number]) Balance Tests Single Limb Standing Single Limb- Right 6 sec w/lat shear Single Limb- Left 25 sec w/lat shear PT-OP-F Manual Assessment Start: 01/09/22 17:31 Freq: Status: Active Protocol: Document 01/13/22 14:35 [facility] (Rec: 01/13/22 15:28 [facility] [id number]) Manual Assessments Soft Tissue Assessment Soft Tissue Mobility Assessment tightness and tenderness: R>L ES, scar, QL, glutes, piriformis Joint Mobility Assessment Joint Mobility Assessment Iliac crest R higher than L; equal greater trochanters PT-OP-G Mobility & Gait Start: 01/09/22 17:31 Freq: Status: Active Protocol: Document 01/13/22 14:35 [facility] (Rec: 01/13/22 15:28 [facility] [id number]) OP Gait Assessment Comments Gait Comments lat lean over LLE and slower gait, dec push off PT-OP-J Posture/Palpation/Skin Start: 01/09/22 17:31 Freq: Status: Active Protocol: Document 01/13/22 14:35 [facility] (Rec: 01/13/22 15:28 [facility] [id number]) Posture Evaluation Zayra Postural Classification System Zayra Postural Classifications Posterior/Anterior Vertebral Compression Test 1 Lumbar Protective Mechanism Left AP 1 Lumbar Protective Mechanism Right AP 1 Lumbar Protective Mechanism Left PA 1 Lumbar Protective Mechanism Right PA 2 PT-OP-K Range of Motion Start: 01/09/22 17:31 Freq: Status: Active Protocol: Document 01/13/22 14:35 [facility] (Rec: 01/13/22 15:28 [facility] [id number]) Lumbar Spine Range of Motion Lumbar Spine Active Extension 60 Rotation Left 33 Rotation Right 50 Lateral Flexion Left 50 Lateral Flexion Right 30 Comments flex w/PT guarding hips to sup patella; to ground; all motion at TL junction w/ext; pain B w/B SB; rot in deg; pain w/left rot PT-OP-L Special Tests Start: 01/09/22 17:31 Freq: Status: Active Protocol: Document 01/13/22 14:35 [facility] (Rec: 01/13/22 15:28 [facility] [id number]) Special Tests Lumbar Spine Special Tests Slump Test Results neg Straight Leg Raise Test Results R 58 deg w/back pain-dec if PF ,L 54 deg w/back pain- dec if PF PT-OP-M Strength Start: 01/09/22 17:31 Freq: Status: Active Protocol: Document 01/13/22 14:35 [facility] (Rec: 01/13/22 15:28 [facility] [id number]) Hip Strength Hip Manual Muscle Testing Right Flexion (L2) 3+ Fair+ Extension (S1) 4- Good- Abduction 3 Fair Adduction 5 Normal External Rotation 4- Good- Internal Rotation 4 Good Left Flexion (L2) 3+ Fair+ Extension (S1) 4- Good- Abduction 3 Fair Adduction 5 Normal External Rotation 3+ Fair+ Internal Rotation 3+ Fair+ Knee Strength Knee Manual Muscle Testing Right Flexion (S2) 5 Normal Extension (L3) 4 Good Left Flexion (S2) 5 Normal Extension (L3) 4 Good Ankle/Foot Strength Ankle and Foot Manual Muscle Testing Right Dorsiflexion (L4) 5 Normal Plantarflexion (S1) 5 Normal Comments PF tested seated Left Dorsiflexion (L4) 5 Normal Plantarflexion (S1) 5 Normal Comments PF tested seate PT-OP-Q Treatments Start: 01/09/22 17:31 Freq: Status: Active Protocol: Document 01/13/22 14:35 [facility] (Rec: 01/13/22 15:28 [facility] [id number]) Therapeutic Exercises Supine Exercises LTR Side bilateral Reps/Minutes 10 stretch Side bilateral Reps/Minutes 30 sec ea pelvic tilt Reps/Minutes 10 PT-OP-T Assessment and Plan Start: 01/09/22 17:31 Freq: Status: Active Protocol: Document 01/13/22 14:35 [facility] (Rec: 01/13/22 15:28 [facility] [id number]) Physical Therapy Assessment Rehab Potential Rehabilitation Potential Good Evaluation Complexity Number of Personal Factors/Comorbidities 3 or More Number of Body Systems Impaired 4 or More Clinical Presentation at Evaluation Evolving Impairments Impairments Activity Tolerance,Balance, Functional Activities, Functional Mobility,Gait,Pain, Posture,ROM,Soft Tissue Mobility,Strength Goals standing Senior Living Goal (LTG) Pt will be able to stand as needed for worka nd at home w/ o inc pain greater than 2/10 LTG Duration 03/15 stairs Short Term Goal (STG) Pt will be able to safely ascend stairs w/o rail reciprocally. STG Duration 02/12/22 Senior Living Goal (LTG) Pt will be able to safely descend stairs w/o rail reciprocally. LTG Duration 03/15/22 balance Senior Living Goal (LTG) Pt will be able to do SLS 20 sec B w/o lat shear of hip LTG Duration 03/15/22 strength Short Term Goal (STG) Pt will be indep w/HEP STG Duration 02/12/22 Senior Living Goal (LTG) Pt will score at least 3/5 on LPM in all planes and improve LE MMT to at least 4+/5 B to improve pt's gait and ability to lift and stand as needed LTG Duration 03/15/22 ZHANNA Impairment 13/50 Short Term Goal (STG) Pt will improve score to at least 8/50 to show improvement in functional ability. STG Duration 02/12/22 Senior Living Goal (LTG) Pt will improve score to at least 3/50 to show improvement in functional ability. LTG Duration 03/15/22 Assessment Summary Assessment Pt presents w/chronic LBP w/ recent worsening causing her to notice significant gait deviations. She has mild L hip pain, but is not as limiting as her back. 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 She does better w/moving around, but if she sits for a while and has to get back up, she has increased pain and has to walk it out. She is continueing pool exercises from previous back PT after initial surgery of L3-L5 fusion in 2014. Pt has weakness in core and gluteals along w/decreased balance and impaired gait, which is likely related to her current pain and dysfunctions. She would benefit from skilled PT to address these deficits. Physical Therapy Plan Frequency and Duration Frequency of Treatment 2x/Week Duration of Treatment 2 months Plan of Care Start Date 01/13/22 Plan of Care End Date 03/15/22 Therapeutic Interventions Therapeutic Interventions Aquatic Therapy,Balance Training,Gait Training,Home Exercise Program,Joint Mobilizations,Manual Therapy, Neuromuscular Re-education, Patient/Caregiver Education, Self-Care/Home Management,Soft Tissue Mobilization,Taping, Therapeutic Activities, Therapeutic Exercises Modalities Cold Pack/Ice Massage,Electric Stimulation,Hot Packs Next Visit Focus/Plan Next Note Type Treatment Note Next Visit Plan review exercises, further supine core stability, sidesteps resisted in standing , manual to lumbar spine & hips
--- NOTE | 2022-01-13 17:48 | PT.OPPOC ---
Physical, Occupational & Speech Therapy At [facility] Current Diagnoses Pain in unspecified hip (01/13/22) Low back pain, unspecified (01/13/22) Difficulty in walking, not elsewhere classified (01/13/22) Unspecified abnormalities of gait and mobility (01/13/22) Abnormal posture (01/13/22) Weakness (01/13/22) Visit Care Team Role Provider Type Ray Gordon MD Attending Provider Physician Family Provider Primary Care Provider Referring Provider Specialty: Internal Medicine Address: [address] [place] [address], [address], [facility] Email: [email or web address] Plan Of Care PT-OP-T Assessment and Plan Start: 01/09/22 17:31 Freq: Status: Active Protocol: Document 01/13/22 14:35 [facility] (Rec: 01/13/22 15:28 [facility] [id number]) Physical Therapy Assessment Rehab Potential Rehabilitation Potential Good Evaluation Complexity Number of Personal Factors/Comorbidities 3 or More Number of Body Systems Impaired 4 or More Clinical Presentation at Evaluation Evolving Impairments Impairments Activity Tolerance,Balance, Functional Activities, Functional Mobility,Gait,Pain, Posture,ROM,Soft Tissue Mobility,Strength Goals standing Intermediate Goal (LTG) Pt will be able to stand as needed for worka nd at home w/ o inc pain greater than 2/10 LTG Duration 03/15 stairs Short Term Goal (STG) Pt will be able to safely ascend stairs w/o rail reciprocally. STG Duration 02/12/22 Intermediate Goal (LTG) Pt will be able to safely descend stairs w/o rail reciprocally. LTG Duration 03/15/22 balance Intermediate Goal (LTG) Pt will be able to do SLS 20 sec B w/o lat shear of hip LTG Duration 03/15/22 strength Short Term Goal (STG) Pt will be indep w/HEP STG Duration 02/12/22 Cup Setter Lockstitch Goal (LTG) Pt will score at least 3/5 on LPM in all planes and improve LE MMT to at least 4+/5 B to improve pt's gait and ability to lift and stand as needed LTG Duration 03/15/22 ZHANNA Impairment 13/50 Short Term Goal (STG) Pt will improve score to at least 8/50 to show improvement in functional ability. STG Duration 02/12/22 Cup Setter Lockstitch Goal (LTG) Pt will improve score to at least 3/50 to show improvement in functional ability. LTG Duration 03/15/22 Assessment Summary Assessment Pt presents w/chronic LBP w/ recent worsening causing her to notice significant gait deviations. She has mild L hip pain, but is not as limiting as her back. 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 She does better w/moving around, but if she sits for a while and has to get back up, she has increased pain and has to walk it out. She is continueing pool exercises from previous back PT after initial surgery of L3-L5 fusion in 2014. Pt has weakness in core and gluteals along w/decreased balance and impaired gait, which is likely related to her current pain and dysfunctions. She would benefit from skilled PT to address these deficits. Physical Therapy Plan Frequency and Duration Frequency of Treatment 2x/Week Duration of Treatment 2 months Plan of Care Start Date 01/13/22 Plan of Care End Date 03/15/22 Therapeutic Interventions Therapeutic Interventions Aquatic Therapy,Balance Training,Gait Training,Home Exercise Program,Joint Mobilizations,Manual Therapy, Neuromuscular Re-education, Patient/Caregiver Education, Self-Care/Home Management,Soft Tissue Mobilization,Taping, Therapeutic Activities, Therapeutic Exercises Modalities Cold Pack/Ice Massage,Electric Stimulation,Hot Packs Next Visit Focus/Plan Next Note Type Treatment Note Next Visit Plan review exercises, further supine core stability, sidesteps resisted in standing , manual to lumbar spine & hips Plan of Care Dates Plan of Care Start Date 01/13/22 Plan of Care End Date 03/15/22 Electronically Signed by: Lisa Benjamin, PT 01/13/22 3414 If you are in agreement with this Plan of Care, please return a signed and dated copy. I have reviewed this Plan of Care and certify that the skilled therapy services above are required to meet the patient?s needs. Physician Signature Date Printed Name and Credentials Clinical Instructor Signature Printed Name and Credentials
--- NOTE | 2022-01-16 13:48 | PT.OTN ---
Current Diagnoses Pain in unspecified hip (01/16/22) Low back pain, unspecified (01/16/22) Difficulty in walking, not elsewhere classified (01/16/22) Unspecified abnormalities of gait and mobility (01/16/22) Abnormal posture (01/16/22) Weakness (01/16/22) Physical Therapy Treatment Note PT-OP-A Visit Information Start: 01/09/22 17:31 Freq: Status: Active Protocol: Document 01/16/22 12:59 [facility] (Rec: 01/16/22 13:47 [facility] [id number]) Out-Patient Physical Therapy Visit Information Visit Information Visit Type Treatment Note Visit Note 08/29 Visit Start Time 13:01 Visit Stop Time 13:52 Total Visit Minutes 51 Visit Number 2 Number of SUPPLY TECHNICIAN Visits 0 PT-OP-B Current Condition Start: 01/09/22 17:31 Freq: Status: Active Protocol: Document 01/13/22 14:35 [facility] (Rec: 01/13/22 15:28 [facility] [id number]) Current Condition History of Current Condition Onset Date worsening over past couple years Current Complaints LBP History of Current Condition Pt reprots back surgery L3-5 for fusion in 2014 and did do some PT after that. She had PT for that and since then has had to be careful re: lifting. She also has scoliosis. Pt reports the past 2 years, she feels like her back is bending fwd w/walking and when she sits and reads she bends fwd. She feels like she walks w/ like a rolling motion and L heel scrapes the ground. 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 Pt reports even standing even a couple min is painful to back. Pt does show her dog and she has trouble lifting him to the table if she has to do it too many times (dog 36 lb). Pt had hip dysplagia as baby and wore braces laying down. 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 She had pain thast was getting worse and worse which is what led to surgery. No specific injury. Reports LBP from [employer] and on. Pt still does do some of her pool exercises from last time and goes for a mile walk a day (is harder if done at end of day. Prior Treatments and Tests PT after surgery that was helpful; been to chiro (says back is twisted & he gets things straightens it out and it helps for 2 weeks)-goes 1x/ month at most up to every couple months Treatment Goals Patient/Caregiver Goals Improve strength of hips and improve gait pattern, determine if she needs to go see surgeon again, be abl eto go up/down stairs w/o rail use , dec back pain PT-OP-C Subjective Start: 01/09/22 17:31 Freq: Status: Active Protocol: Document 01/16/22 12:59 [facility] (Rec: 01/16/22 13:47 [facility] [id number]) OP-PT Subjective Patient Comments Patient Comments Pt reports she did her exercises and had some soreness yesterday but was okay this AM PT-OP-D Balance Start: 01/09/22 17:31 Freq: Status: Active Protocol: Document 01/13/22 14:35 [facility] (Rec: 01/13/22 15:28 [facility] [id number]) Balance Tests Single Limb Standing Single Limb- Right 6 sec w/lat shear Single Limb- Left 25 sec w/lat shear PT-OP-F Manual Assessment Start: 01/09/22 17:31 Freq: Status: Active Protocol: Document 01/13/22 14:35 [facility] (Rec: 01/13/22 15:28 [facility] [id number]) Manual Assessments Soft Tissue Assessment Soft Tissue Mobility Assessment tightness and tenderness: R>L ES, scar, QL, glutes, piriformis Joint Mobility Assessment Joint Mobility Assessment Iliac crest R higher than L; equal greater trochanters PT-OP-G Mobility & Gait Start: 01/09/22 17:31 Freq: Status: Active Protocol: Document 01/13/22 14:35 [facility] (Rec: 01/13/22 15:28 [facility] [id number]) OP Gait Assessment Comments Gait Comments lat lean over LLE and slower gait, dec push off PT-OP-J Posture/Palpation/Skin Start: 01/09/22 17:31 Freq: Status: Active Protocol: Document 01/13/22 14:35 [facility] (Rec: 01/13/22 15:28 [facility] [id number]) Posture Evaluation Zayra Postural Classification System Zayra Postural Classifications Posterior/Anterior Vertebral Compression Test 1 Lumbar Protective Mechanism Left AP 1 Lumbar Protective Mechanism Right AP 1 Lumbar Protective Mechanism Left PA 1 Lumbar Protective Mechanism Right PA 2 PT-OP-K Range of Motion Start: 01/09/22 17:31 Freq: Status: Active Protocol: Document 01/13/22 14:35 [facility] (Rec: 01/13/22 15:28 [facility] [id number]) Lumbar Spine Range of Motion Lumbar Spine Active Extension 60 Rotation Left 33 Rotation Right 50 Lateral Flexion Left 50 Lateral Flexion Right 30 Comments flex w/PT guarding hips to sup patella; to ground; all motion at TL junction w/ext; pain B w/B SB; rot in deg; pain w/left rot PT-OP-L Special Tests Start: 01/09/22 17:31 Freq: Status: Active Protocol: Document 01/13/22 14:35 [facility] (Rec: 01/13/22 15:28 [facility] [id number]) Special Tests Lumbar Spine Special Tests Slump Test Results neg Straight Leg Raise Test Results R 58 deg w/back pain-dec if PF ,L 54 deg w/back pain- dec if PF PT-OP-M Strength Start: 01/09/22 17:31 Freq: Status: Active Protocol: Document 01/13/22 14:35 [facility] (Rec: 01/13/22 15:28 [facility] [id number]) Hip Strength Hip Manual Muscle Testing Right Flexion (L2) 3+ Fair+ Extension (S1) 4- Good- Abduction 3 Fair Adduction 5 Normal External Rotation 4- Good- Internal Rotation 4 Good Left Flexion (L2) 3+ Fair+ Extension (S1) 4- Good- Abduction 3 Fair Adduction 5 Normal External Rotation 3+ Fair+ Internal Rotation 3+ Fair+ Knee Strength Knee Manual Muscle Testing Right Flexion (S2) 5 Normal Extension (L3) 4 Good Left Flexion (S2) 5 Normal Extension (L3) 4 Good Ankle/Foot Strength Ankle and Foot Manual Muscle Testing Right Dorsiflexion (L4) 5 Normal Plantarflexion (S1) 5 Normal Comments PF tested seated Left Dorsiflexion (L4) 5 Normal Plantarflexion (S1) 5 Normal Comments PF tested seate PT-OP-Q Treatments Start: 01/09/22 17:31 Freq: Status: Active Protocol: Document 01/16/22 12:59 [facility] (Rec: 01/16/22 13:47 [facility] [id number]) Therapeutic Exercises Supine Exercises core Supine Exercise Name 1. september 2. september Side bilateral Reps/Minutes 10 ea Comments TAbd engagement bridge Supine Exercise Name w/tilt first to avoid ext Side bilateral Reps/Minutes 5sec x10 LTR Side bilateral Reps/Minutes 10 stretch Supine Exercise Name 1.piriformis 2. active HS Side bilateral Reps/Minutes 30 sec ea pelvic tilt Reps/Minutes 2 Standing Exercises sidesteps Standing Exercise Name cues for back neutral and no lat lean Side bilateral Equipment Used lvl 1 Reps/Minutes 20ft ea Manual Therapy Treatment Soft Tissue Mobilization hips Body Location glutes & piriformis B Mobilization Type Strumming,Sustained Pressure Intensity/Depth Moderate Body Position Prone lumbar Body Location L>R ES, B scars, L>R QL, B around SI Mobilization Type Myofascial Release,Rolling, Strumming Intensity/Depth Moderate Body Position Prone Joint Mobilizations sacrum Joint MOUSTAPHA ,L caudal FM Body Position Prone hip Joint B Direction ER on axis FM Body Position Prone innominate Direction L caudal, R ER FM Body Position Prone PT-OP-R Modalities Start: 01/09/22 17:31 Freq: Status: Active Protocol: Document 01/16/22 12:59 [facility] (Rec: 01/16/22 13:47 [facility] [id number]) Hot Pack/Cold Pack Treatment Cold Pack Location LB Patient Position Prone Treatment Duration (minutes) 10 PT-OP-T Assessment and Plan Start: 01/09/22 17:31 Freq: Status: Active Protocol: Document 01/16/22 12:59 [facility] (Rec: 01/16/22 13:47 [facility] [id number]) Physical Therapy Assessment Goals standing Spotter Goal (LTG) Pt will be able to stand as needed for worka nd at home w/ o inc pain greater than 2/10 LTG Duration 03/15 stairs Short Term Goal (STG) Pt will be able to safely ascend stairs w/o rail reciprocally. STG Duration 02/12/22 Assisted Goal (LTG) Pt will be able to safely descend stairs w/o rail reciprocally. LTG Duration 03/15/22 balance Spotter Goal (LTG) Pt will be able to do SLS 20 sec B w/o lat shear of hip LTG Duration 03/15/22 strength Short Term Goal (STG) Pt will be indep w/HEP STG Duration 02/12/22 Assisted Goal (LTG) Pt will score at least 3/5 on LPM in all planes and improve LE MMT to at least 4+/5 B to improve pt's gait and ability to lift and stand as needed LTG Duration 03/15/22 ZHANNA Impairment 13/50 Short Term Goal (STG) Pt will improve score to at least 8/50 to show improvement in functional ability. STG Duration 02/12/22 Spotter Goal (LTG) Pt will improve score to at least 3/50 to show improvement in functional ability. LTG Duration 03/15/22 Assessment Summary Assessment pt did well w/ the exercises w /no cues for initial exercises and was able to be progressed to more difficult exercises today. She required cueing throughout for good core engagment. Improved hip ER B w /manual Physical Therapy Plan Frequency and Duration Frequency of Treatment 2x/Week Duration of Treatment 2 months Plan of Care Start Date 01/13/22 Plan of Care End Date 03/15/22 Next Visit Focus/Plan Next Note Type Treatment Note Next Visit Plan progress core stability, review sidesteps, manual to lumbar and hips
--- NOTE | 2022-01-29 14:36 | PT.OTN ---
Current Diagnoses Pain in unspecified hip (01/29/22) Low back pain, unspecified (01/29/22) Difficulty in walking, not elsewhere classified (01/29/22) Unspecified abnormalities of gait and mobility (01/29/22) Abnormal posture (01/29/22) Weakness (01/29/22) Physical Therapy Treatment Note PT-OP-A Visit Information Start: 01/09/22 17:31 Freq: Status: Active Protocol: Document 01/29/22 13:08 SP (Rec: 01/29/22 13:49 SP [id number]) Out-Patient Physical Therapy Visit Information Visit Information Visit Type Treatment Note Visit Note 09/26, IRON CUTTER late getting pt. Pt stated the manual last tx helped alot wants to continue, also revisit band walk to able to do at home. She stated did alot standing/walking with dog show over a 3 day weekend with noted increase back pain, challenged with not able to lay down and stretch as would have likes. Visit Start Time 13:08 Visit Stop Time 13:46 Total Visit Minutes 38 Visit Number 3 Number of IRON CUTTER Visits 1 PT-OP-B Current Condition Start: 01/09/22 17:31 Freq: Status: Active Protocol: Document 01/13/22 14:35 [facility] (Rec: 01/13/22 15:28 [facility] [id number]) Current Condition History of Current Condition Onset Date worsening over past couple years Current Complaints LBP History of Current Condition Pt reprots back surgery L3-5 for fusion in 2014 and did do some PT after that. She had PT for that and since then has had to be careful re: lifting. She also has scoliosis. Pt reports the past 2 years, she feels like her back is bending fwd w/walking and when she sits and reads she bends fwd. She feels like she walks w/ like a rolling motion and L heel scrapes the ground. 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 Pt reports even standing even a couple min is painful to back. Pt does show her dog and she has trouble lifting him to the table if she has to do it too many times (dog 36 lb). Pt had hip dysplagia as baby and wore braces laying down. 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 She had pain thast was getting worse and worse which is what led to surgery. No specific injury. Reports LBP from [employer] and on. Pt still does do some of her pool exercises from last time and goes for a mile walk a day (is harder if done at end of day. Prior Treatments and Tests PT after surgery that was helpful; been to chiro (says back is twisted & he gets things straightens it out and it helps for 2 weeks)-goes 1x/ month at most up to every couple months Treatment Goals Patient/Caregiver Goals Improve strength of hips and improve gait pattern, determine if she needs to go see surgeon again, be abl eto go up/down stairs w/o rail use , dec back pain PT-OP-C Subjective Start: 01/09/22 17:31 Freq: Status: Active Protocol: Document 01/16/22 12:59 [facility] (Rec: 01/16/22 13:47 [facility] [id number]) OP-PT Subjective Patient Comments Patient Comments Pt reports she did her exercises and had some soreness yesterday but was okay this AM PT-OP-D Balance Start: 01/09/22 17:31 Freq: Status: Active Protocol: Document 01/13/22 14:35 [facility] (Rec: 01/13/22 15:28 [facility] [id number]) Balance Tests Single Limb Standing Single Limb- Right 6 sec w/lat shear Single Limb- Left 25 sec w/lat shear PT-OP-F Manual Assessment Start: 01/09/22 17:31 Freq: Status: Active Protocol: Document 01/13/22 14:35 [facility] (Rec: 01/13/22 15:28 [facility] [id number]) Manual Assessments Soft Tissue Assessment Soft Tissue Mobility Assessment tightness and tenderness: R>L ES, scar, QL, glutes, piriformis Joint Mobility Assessment Joint Mobility Assessment Iliac crest R higher than L; equal greater trochanters PT-OP-G Mobility & Gait Start: 01/09/22 17:31 Freq: Status: Active Protocol: Document 01/13/22 14:35 [facility] (Rec: 01/13/22 15:28 [facility] [id number]) OP Gait Assessment Comments Gait Comments lat lean over LLE and slower gait, dec push off PT-OP-J Posture/Palpation/Skin Start: 01/09/22 17:31 Freq: Status: Active Protocol: Document 01/13/22 14:35 [facility] (Rec: 01/13/22 15:28 [facility] [id number]) Posture Evaluation Zayra Postural Classification System Zayra Postural Classifications Posterior/Anterior Vertebral Compression Test 1 Lumbar Protective Mechanism Left AP 1 Lumbar Protective Mechanism Right AP 1 Lumbar Protective Mechanism Left PA 1 Lumbar Protective Mechanism Right PA 2 PT-OP-K Range of Motion Start: 01/09/22 17:31 Freq: Status: Active Protocol: Document 01/13/22 14:35 [facility] (Rec: 01/13/22 15:28 [facility] [id number]) Lumbar Spine Range of Motion Lumbar Spine Active Extension 60 Rotation Left 33 Rotation Right 50 Lateral Flexion Left 50 Lateral Flexion Right 30 Comments flex w/PT guarding hips to sup patella; to ground; all motion at TL junction w/ext; pain B w/B SB; rot in deg; pain w/left rot PT-OP-L Special Tests Start: 01/09/22 17:31 Freq: Status: Active Protocol: Document 01/13/22 14:35 [facility] (Rec: 01/13/22 15:28 [facility] [id number]) Special Tests Lumbar Spine Special Tests Slump Test Results neg Straight Leg Raise Test Results R 58 deg w/back pain-dec if PF ,L 54 deg w/back pain- dec if PF PT-OP-M Strength Start: 01/09/22 17:31 Freq: Status: Active Protocol: Document 01/13/22 14:35 [facility] (Rec: 01/13/22 15:28 [facility] [id number]) Hip Strength Hip Manual Muscle Testing Right Flexion (L2) 3+ Fair+ Extension (S1) 4- Good- Abduction 3 Fair Adduction 5 Normal External Rotation 4- Good- Internal Rotation 4 Good Left Flexion (L2) 3+ Fair+ Extension (S1) 4- Good- Abduction 3 Fair Adduction 5 Normal External Rotation 3+ Fair+ Internal Rotation 3+ Fair+ Knee Strength Knee Manual Muscle Testing Right Flexion (S2) 5 Normal Extension (L3) 4 Good Left Flexion (S2) 5 Normal Extension (L3) 4 Good Ankle/Foot Strength Ankle and Foot Manual Muscle Testing Right Dorsiflexion (L4) 5 Normal Plantarflexion (S1) 5 Normal Comments PF tested seated Left Dorsiflexion (L4) 5 Normal Plantarflexion (S1) 5 Normal Comments PF tested seate PT-OP-Q Treatments Start: 01/09/22 17:31 Freq: Status: Active Protocol: Document 01/29/22 13:08 SP (Rec: 01/29/22 13:49 SP [id number]) Therapeutic Exercises Supine Exercises core Supine Exercise Name 1. september 2. scissor september Side bilateral Reps/Minutes 10 ea Comments TAbd engagement, good pacing control bridge Supine Exercise Name w/tilt first to avoid ext Side bilateral Reps/Minutes 5sec x10 Comments cued slow pacing stability control LTR Side bilateral Reps/Minutes 10 Comments cued slow pacing stability control stretch Supine Exercise Name 1.piriformis 2. active HS Side bilateral Reps/Minutes 30 sec ea Comments good form pelvic tilt Reps/Minutes 2 Comments cues slow small range Sitting Exercises stretching Sitting Exercise Name 1. PF 2.HS 3.ES- added to HEP Side bilateral Reps/Minutes 30s each Comments apply when up and about vs needing lay down Standing Exercises self STM Standing Exercise Name ES, glut max/med Side bilateral Equipment Used ball wall Reps/Minutes 30 s TA Shld ext/row Standing Exercise Name added to HEP Resistance Lv1 band Reps/Minutes x10 each Comments cued split stance sidesteps Standing Exercise Name added to HEP: cued no lat lean Side bilateral Resistance lvl 1 at ankles Equipment Used 1 UE rail contact Reps/Minutes 20ft ea Comments cued no LSB, foot clearance, core/hip abd fac neutral pelvis Manual Therapy Treatment Soft Tissue Mobilization hips Body Location glutes & piriformis B Mobilization Type Strumming,Sustained Pressure Intensity/Depth Moderate Body Position Prone lumbar Body Location L>R ES, B scars, L>R QL, B around SI PT-OP-R Modalities Start: 01/09/22 17:31 Freq: Status: Active Protocol: Document 01/16/22 12:59 [facility] (Rec: 01/16/22 13:47 [facility] [id number]) Hot Pack/Cold Pack Treatment Cold Pack Location LB Patient Position Prone Treatment Duration (minutes) 10 PT-OP-T Assessment and Plan Start: 01/09/22 17:31 Freq: Status: Active Protocol: Document 01/29/22 13:08 SP (Rec: 01/29/22 13:49 SP [id number]) Physical Therapy Assessment Goals standing Shelter Goal (LTG) Pt will be able to stand as needed for worka nd at home w/ o inc pain greater than 2/10 LTG Duration 03/15 stairs Short Term Goal (STG) Pt will be able to safely ascend stairs w/o rail reciprocally. STG Duration 02/12/22 Shelter Goal (LTG) Pt will be able to safely descend stairs w/o rail reciprocally. LTG Duration 03/15/22 balance Mineral Mixer Goal (LTG) Pt will be able to do SLS 20 sec B w/o lat shear of hip LTG Duration 03/15/22 strength Short Term Goal (STG) Pt will be indep w/HEP STG Duration 02/12/22 Mineral Mixer Goal (LTG) Pt will score at least 3/5 on LPM in all planes and improve LE MMT to at least 4+/5 B to improve pt's gait and ability to lift and stand as needed LTG Duration 03/15/22 ZHANNA Impairment 13/50 Short Term Goal (STG) Pt will improve score to at least 8/50 to show improvement in functional ability. STG Duration 02/12/22 Mineral Mixer Goal (LTG) Pt will improve score to at least 3/50 to show improvement in functional ability. LTG Duration 03/15/22 Assessment Summary Assessment Pt responded well to manual to LS/scar, instructed self use of ball on wall STMs with good response, initiated adapting stretching in sitting for alternative to supine when needed with good form and response helped decrease tension. HEP review required cues for slow pacing ROM bridge, pelvic tilt and TA awareness to not over recruit LB, better understanding and corrections. Cues for posturing and no SB during band walk, improved foot clearance and provided band and HO for home application carryover. Pt stated felt less tightness in back end tx. Physical Therapy Plan Frequency and Duration Frequency of Treatment 2x/Week Duration of Treatment 2 months Plan of Care Start Date 01/13/22 Plan of Care End Date 03/15/22 Therapeutic Interventions Therapeutic Interventions Aquatic Therapy,Balance Training,Gait Training,Home Exercise Program,Joint Mobilizations,Manual Therapy, Neuromuscular Re-education, Patient/Caregiver Education, Self-Care/Home Management,Soft Tissue Mobilization,Taping, Therapeutic Activities, Therapeutic Exercises Modalities Cold Pack/Ice Massage,Electric Stimulation,Hot Packs Next Visit Focus/Plan Next Note Type Treatment Note Next Visit Plan Assess self STMs, shld ext/ rows and side stepping next tx . POC: progress core stability, continue manual to lumbar and hips
--- NOTE | 2022-02-03 14:43 | PT.OTN ---
Current Diagnoses Pain in unspecified hip (02/03/22) Low back pain, unspecified (02/03/22) Difficulty in walking, not elsewhere classified (02/03/22) Unspecified abnormalities of gait and mobility (02/03/22) Abnormal posture (02/03/22) Weakness (02/03/22) Physical Therapy Treatment Note PT-OP-A Visit Information Start: 01/09/22 17:31 Freq: Status: Active Protocol: Document 02/03/22 13:49 [facility] (Rec: 02/03/22 14:43 [facility] [id number]) Out-Patient Physical Therapy Visit Information Visit Information Visit Type Treatment Note Visit Note 10/27 Visit Start Time 13:50 Visit Stop Time 14:40 Total Visit Minutes 50 Visit Number 4 Number of FLOOR COVERING PRINTER ASSISTANT Visits 0 PT-OP-B Current Condition Start: 01/09/22 17:31 Freq: Status: Active Protocol: Document 01/13/22 14:35 [facility] (Rec: 01/13/22 15:28 [facility] [id number]) Current Condition History of Current Condition Onset Date worsening over past couple years Current Complaints LBP History of Current Condition Pt reprots back surgery L3-5 for fusion in 2014 and did do some PT after that. She had PT for that and since then has had to be careful re: lifting. She also has scoliosis. Pt reports the past 2 years, she feels like her back is bending fwd w/walking and when she sits and reads she bends fwd. She feels like she walks w/ like a rolling motion and L heel scrapes the ground. 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 Pt reports even standing even a couple min is painful to back. Pt does show her dog and she has trouble lifting him to the table if she has to do it too many times (dog 36 lb). Pt had hip dysplagia as baby and wore braces laying down. 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 She had pain thast was getting worse and worse which is what led to surgery. No specific injury. Reports LBP from [employer] and on. Pt still does do some of her pool exercises from last time and goes for a mile walk a day (is harder if done at end of day. Prior Treatments and Tests PT after surgery that was helpful; been to chiro (says back is twisted & he gets things straightens it out and it helps for 2 weeks)-goes 1x/ month at most up to every couple months Treatment Goals Patient/Caregiver Goals Improve strength of hips and improve gait pattern, determine if she needs to go see surgeon again, be abl eto go up/down stairs w/o rail use , dec back pain PT-OP-C Subjective Start: 01/09/22 17:31 Freq: Status: Active Protocol: Document 02/03/22 13:49 [facility] (Rec: 02/03/22 14:43 [facility] [id number]) OP-PT Subjective Patient Comments Patient Comments Pt reports doing well with her exercises. Did okay at dog show. Notes she was sore the last day with the most standing. PT-OP-D Balance Start: 01/09/22 17:31 Freq: Status: Active Protocol: Document 01/13/22 14:35 [facility] (Rec: 01/13/22 15:28 [facility] [id number]) Balance Tests Single Limb Standing Single Limb- Right 6 sec w/lat shear Single Limb- Left 25 sec w/lat shear PT-OP-F Manual Assessment Start: 01/09/22 17:31 Freq: Status: Active Protocol: Document 01/13/22 14:35 [facility] (Rec: 01/13/22 15:28 [facility] [id number]) Manual Assessments Soft Tissue Assessment Soft Tissue Mobility Assessment tightness and tenderness: R>L ES, scar, QL, glutes, piriformis Joint Mobility Assessment Joint Mobility Assessment Iliac crest R higher than L; equal greater trochanters PT-OP-G Mobility & Gait Start: 01/09/22 17:31 Freq: Status: Active Protocol: Document 01/13/22 14:35 [facility] (Rec: 01/13/22 15:28 [facility] [id number]) OP Gait Assessment Comments Gait Comments lat lean over LLE and slower gait, dec push off PT-OP-J Posture/Palpation/Skin Start: 01/09/22 17:31 Freq: Status: Active Protocol: Document 01/13/22 14:35 [facility] (Rec: 01/13/22 15:28 [facility] [id number]) Posture Evaluation Zayra Postural Classification System Zayra Postural Classifications Posterior/Anterior Vertebral Compression Test 1 Lumbar Protective Mechanism Left AP 1 Lumbar Protective Mechanism Right AP 1 Lumbar Protective Mechanism Left PA 1 Lumbar Protective Mechanism Right PA 2 PT-OP-K Range of Motion Start: 01/09/22 17:31 Freq: Status: Active Protocol: Document 01/13/22 14:35 [facility] (Rec: 01/13/22 15:28 [facility] [id number]) Lumbar Spine Range of Motion Lumbar Spine Active Extension 60 Rotation Left 33 Rotation Right 50 Lateral Flexion Left 50 Lateral Flexion Right 30 Comments flex w/PT guarding hips to sup patella; to ground; all motion at TL junction w/ext; pain B w/B SB; rot in deg; pain w/left rot PT-OP-L Special Tests Start: 01/09/22 17:31 Freq: Status: Active Protocol: Document 01/13/22 14:35 [facility] (Rec: 01/13/22 15:28 [facility] [id number]) Special Tests Lumbar Spine Special Tests Slump Test Results neg Straight Leg Raise Test Results R 58 deg w/back pain-dec if PF ,L 54 deg w/back pain- dec if PF PT-OP-M Strength Start: 01/09/22 17:31 Freq: Status: Active Protocol: Document 01/13/22 14:35 [facility] (Rec: 01/13/22 15:28 [facility] [id number]) Hip Strength Hip Manual Muscle Testing Right Flexion (L2) 3+ Fair+ Extension (S1) 4- Good- Abduction 3 Fair Adduction 5 Normal External Rotation 4- Good- Internal Rotation 4 Good Left Flexion (L2) 3+ Fair+ Extension (S1) 4- Good- Abduction 3 Fair Adduction 5 Normal External Rotation 3+ Fair+ Internal Rotation 3+ Fair+ Knee Strength Knee Manual Muscle Testing Right Flexion (S2) 5 Normal Extension (L3) 4 Good Left Flexion (S2) 5 Normal Extension (L3) 4 Good Ankle/Foot Strength Ankle and Foot Manual Muscle Testing Right Dorsiflexion (L4) 5 Normal Plantarflexion (S1) 5 Normal Comments PF tested seated Left Dorsiflexion (L4) 5 Normal Plantarflexion (S1) 5 Normal Comments PF tested seate PT-OP-Q Treatments Start: 01/09/22 17:31 Freq: Status: Active Protocol: Document 02/03/22 13:49 [facility] (Rec: 02/03/22 14:43 [facility] [id number]) Therapeutic Exercises Supine Exercises core Supine Exercise Name 1. scissor september 2. dying bug Side bilateral Reps/Minutes 15 ea Comments TAbd engagement, good pacing control bridge Supine Exercise Name w/alt march Side bilateral Reps/Minutes 10 Comments max cues LTR Side bilateral Reps/Minutes 5 Comments cues for segmental stability Standing Exercises ext Side bilateral Equipment Used L1 Reps/Minutes 12 Comments cues for core TA Shld ext/row Standing Exercise Name review HEP Resistance Lv1 band, lvl 2 (2nd set) Reps/Minutes 2x10 each Comments cued split stance sidesteps Standing Exercise Name review HEP: cued no lat lean Side bilateral Resistance lvl 1 at ankles Equipment Used 1 UE rail contact Reps/Minutes 20ft ea Comments cues core Manual Therapy Treatment Soft Tissue Mobilization lumbar Body Location L>R ES, B scars, L>R QL, B around SI Joint Mobilizations sacrum Joint R UPA hip Joint b Direction hip inf glide FM innominate Joint L ER FM PT-OP-R Modalities Start: 01/09/22 17:31 Freq: Status: Active Protocol: Document 02/03/22 13:49 [facility] (Rec: 02/03/22 14:43 [facility] [id number]) Hot Pack/Cold Pack Treatment Cold Pack Location LB Patient Position Prone Treatment Duration (minutes) 10 PT-OP-T Assessment and Plan Start: 01/09/22 17:31 Freq: Status: Active Protocol: Document 02/03/22 13:49 [facility] (Rec: 02/03/22 14:43 [facility] [id number]) Physical Therapy Assessment Goals standing Airport Screener Goal (LTG) Pt will be able to stand as needed for worka nd at home w/ o inc pain greater than 2/10 LTG Duration 03/15 stairs Short Term Goal (STG) Pt will be able to safely ascend stairs w/o rail reciprocally. STG Duration 02/12/22 Half-Way Goal (LTG) Pt will be able to safely descend stairs w/o rail reciprocally. LTG Duration 03/15/22 balance Half-Way Goal (LTG) Pt will be able to do SLS 20 sec B w/o lat shear of hip LTG Duration 03/15/22 strength Short Term Goal (STG) Pt will be indep w/HEP STG Duration 02/12/22 Airport Screener Goal (LTG) Pt will score at least 3/5 on LPM in all planes and improve LE MMT to at least 4+/5 B to improve pt's gait and ability to lift and stand as needed LTG Duration 03/15/22 ZHANNA Impairment 13/50 Short Term Goal (STG) Pt will improve score to at least 8/50 to show improvement in functional ability. STG Duration 02/12/22 Half-Way Goal (LTG) Pt will improve score to at least 3/50 to show improvement in functional ability. LTG Duration 03/15/22 Assessment Summary Assessment Pt was able to progress w/some exercises. She did require a lot of uces w/bridge w/september but is able to stabilize mostly fully when cued and she focuses. Improved hip flex B w/less back pain after session . Physical Therapy Plan Next Visit Focus/Plan Next Note Type Treatment Note Next Visit Plan progress core stability, manual to lumbar and hips
--- NOTE | 2022-02-05 16:19 | PT.OTN ---
Current Diagnoses Pain in unspecified hip (02/05/22) Low back pain, unspecified (02/05/22) Difficulty in walking, not elsewhere classified (02/05/22) Unspecified abnormalities of gait and mobility (02/05/22) Abnormal posture (02/05/22) Weakness (02/05/22) Physical Therapy Treatment Note PT-OP-A Visit Information Start: 01/09/22 17:31 Freq: Status: Active Protocol: Document 02/05/22 15:22 [facility] (Rec: 02/05/22 16:18 [facility] [id number]) Out-Patient Physical Therapy Visit Information Visit Information Visit Type Treatment Note Visit Note 11/26 Visit Start Time 15:21 Visit Stop Time 16:01 Total Visit Minutes 40 Visit Number 5 Number of SECURITY SOLUTIONS ARCHITECT Visits 0 PT-OP-B Current Condition Start: 01/09/22 17:31 Freq: Status: Active Protocol: Document 01/13/22 14:35 [facility] (Rec: 01/13/22 15:28 [facility] [id number]) Current Condition History of Current Condition Onset Date worsening over past couple years Current Complaints LBP History of Current Condition Pt reprots back surgery L3-5 for fusion in 2014 and did do some PT after that. She had PT for that and since then has had to be careful re: lifting. She also has scoliosis. Pt reports the past 2 years, she feels like her back is bending fwd w/walking and when she sits and reads she bends fwd. She feels like she walks w/ like a rolling motion and L heel scrapes the ground. 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 Pt reports even standing even a couple min is painful to back. Pt does show her dog and she has trouble lifting him to the table if she has to do it too many times (dog 36 lb). Pt had hip dysplagia as baby and wore braces laying down. 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 She had pain thast was getting worse and worse which is what led to surgery. No specific injury. Reports LBP from [employer] and on. Pt still does do some of her pool exercises from last time and goes for a mile walk a day (is harder if done at end of day. Prior Treatments and Tests PT after surgery that was helpful; been to chiro (says back is twisted & he gets things straightens it out and it helps for 2 weeks)-goes 1x/ month at most up to every couple months Treatment Goals Patient/Caregiver Goals Improve strength of hips and improve gait pattern, determine if she needs to go see surgeon again, be abl eto go up/down stairs w/o rail use , dec back pain PT-OP-C Subjective Start: 01/09/22 17:31 Freq: Status: Active Protocol: Document 02/05/22 15:22 [facility] (Rec: 02/05/22 16:18 [facility] [id number]) OP-PT Subjective Patient Comments Patient Comments Pt reprots about 6 pm the night after last session she started having constnt LBP. She went for walk and did some watering of her garden which is all normal but noted that pain later that day. Notes she tried ice, tennis ball, exercises and advil but no relief PT-OP-D Balance Start: 01/09/22 17:31 Freq: Status: Active Protocol: Document 01/13/22 14:35 [facility] (Rec: 01/13/22 15:28 [facility] [id number]) Balance Tests Single Limb Standing Single Limb- Right 6 sec w/lat shear Single Limb- Left 25 sec w/lat shear PT-OP-F Manual Assessment Start: 01/09/22 17:31 Freq: Status: Active Protocol: Document 01/13/22 14:35 [facility] (Rec: 01/13/22 15:28 [facility] [id number]) Manual Assessments Soft Tissue Assessment Soft Tissue Mobility Assessment tightness and tenderness: R>L ES, scar, QL, glutes, piriformis Joint Mobility Assessment Joint Mobility Assessment Iliac crest R higher than L; equal greater trochanters PT-OP-G Mobility & Gait Start: 01/09/22 17:31 Freq: Status: Active Protocol: Document 01/13/22 14:35 [facility] (Rec: 01/13/22 15:28 [facility] [id number]) OP Gait Assessment Comments Gait Comments lat lean over LLE and slower gait, dec push off PT-OP-J Posture/Palpation/Skin Start: 01/09/22 17:31 Freq: Status: Active Protocol: Document 01/13/22 14:35 [facility] (Rec: 01/13/22 15:28 [facility] [id number]) Posture Evaluation [facility] Postural Classification System Zayra Postural Classifications Posterior/Anterior Vertebral Compression Test 1 Lumbar Protective Mechanism Left AP 1 Lumbar Protective Mechanism Right AP 1 Lumbar Protective Mechanism Left PA 1 Lumbar Protective Mechanism Right PA 2 PT-OP-K Range of Motion Start: 01/09/22 17:31 Freq: Status: Active Protocol: Document 01/13/22 14:35 [facility] (Rec: 01/13/22 15:28 [facility] [id number]) Lumbar Spine Range of Motion Lumbar Spine Active Extension 60 Rotation Left 33 Rotation Right 50 Lateral Flexion Left 50 Lateral Flexion Right 30 Comments flex w/PT guarding hips to sup patella; to ground; all motion at TL junction w/ext; pain B w/B SB; rot in deg; pain w/left rot PT-OP-L Special Tests Start: 01/09/22 17:31 Freq: Status: Active Protocol: Document 01/13/22 14:35 [facility] (Rec: 01/13/22 15:28 [facility] [id number]) Special Tests Lumbar Spine Special Tests Slump Test Results neg Straight Leg Raise Test Results R 58 deg w/back pain-dec if PF ,L 54 deg w/back pain- dec if PF PT-OP-M Strength Start: 01/09/22 17:31 Freq: Status: Active Protocol: Document 01/13/22 14:35 [facility] (Rec: 01/13/22 15:28 [facility] [id number]) Hip Strength Hip Manual Muscle Testing Right Flexion (L2) 3+ Fair+ Extension (S1) 4- Good- Abduction 3 Fair Adduction 5 Normal External Rotation 4- Good- Internal Rotation 4 Good Left Flexion (L2) 3+ Fair+ Extension (S1) 4- Good- Abduction 3 Fair Adduction 5 Normal External Rotation 3+ Fair+ Internal Rotation 3+ Fair+ Knee Strength Knee Manual Muscle Testing Right Flexion (S2) 5 Normal Extension (L3) 4 Good Left Flexion (S2) 5 Normal Extension (L3) 4 Good Ankle/Foot Strength Ankle and Foot Manual Muscle Testing Right Dorsiflexion (L4) 5 Normal Plantarflexion (S1) 5 Normal Comments PF tested seated Left Dorsiflexion (L4) 5 Normal Plantarflexion (S1) 5 Normal Comments PF tested seate PT-OP-Q Treatments Start: 01/09/22 17:31 Freq: Status: Active Protocol: Document 02/05/22 15:22 [facility] (Rec: 02/05/22 16:18 [facility] [id number]) Therapeutic Exercises Supine Exercises bridge Supine Exercise Name painful w/just bridge today so stopped LTR Supine Exercise Name comfortable range Side bilateral Reps/Minutes 8 Comments cues for segmental stability stretch Supine Exercise Name 1.piriformis 2. active HS Side bilateral Reps/Minutes 45 sec ea Comments good form pelvic tilt Reps/Minutes 10 Comments cues comfortable range & breathing Sitting Exercises stretching Sitting Exercise Name 1. QL Side bilateral Reps/Minutes 1 min ea Standing Exercises stretch Standing Exercise Name ebenezer pose at counter Side bilateral Reps/Minutes 30 sec Manual Therapy Treatment Soft Tissue Mobilization hips Body Location glutes & piriformis B Mobilization Type Strumming,Sustained Pressure Intensity/Depth Moderate Body Position Prone lumbar Body Location L>R ES, B scars, L>R QL, B around SI Joint Mobilizations hip Joint b Direction hip inf glide FM PT-OP-R Modalities Start: 01/09/22 17:31 Freq: Status: Active Protocol: Document 02/03/22 13:49 [facility] (Rec: 02/03/22 14:43 [facility] [id number]) Hot Pack/Cold Pack Treatment Cold Pack Location LB Patient Position Prone Treatment Duration (minutes) 10 PT-OP-T Assessment and Plan Start: 01/09/22 17:31 Freq: Status: Active Protocol: Document 02/05/22 15:22 [facility] (Rec: 02/05/22 16:18 [facility] [id number]) Physical Therapy Assessment Goals standing Usp Goal (LTG) Pt will be able to stand as needed for worka nd at home w/ o inc pain greater than 2/10 LTG Duration 03/15 stairs Short Term Goal (STG) Pt will be able to safely ascend stairs w/o rail reciprocally. STG Duration 02/12/22 Usp Goal (LTG) Pt will be able to safely descend stairs w/o rail reciprocally. LTG Duration 03/15/22 balance Usp Goal (LTG) Pt will be able to do SLS 20 sec B w/o lat shear of hip LTG Duration 03/15/22 strength Short Term Goal (STG) Pt will be indep w/HEP STG Duration 02/12/22 Manager Quality Improvement Goal (LTG) Pt will score at least 3/5 on LPM in all planes and improve LE MMT to at least 4+/5 B to improve pt's gait and ability to lift and stand as needed LTG Duration 03/15/22 ZHANNA Impairment 13/50 Short Term Goal (STG) Pt will improve score to at least 8/50 to show improvement in functional ability. STG Duration 02/12/22 Manager Quality Improvement Goal (LTG) Pt will improve score to at least 3/50 to show improvement in functional ability. LTG Duration 03/15/22 Assessment Summary Assessment Pt reports less pain after treatment session today to pain down to only a little bit. Encouraged pt to back off with exercises and just do stretches and exercises taht are pain free. Physical Therapy Plan Frequency and Duration Frequency of Treatment 2x/Week Duration of Treatment 2 months Plan of Care Start Date 01/13/22 Plan of Care End Date 03/15/22 Next Visit Focus/Plan Next Note Type Treatment Note Next Visit Plan assess how pt feelingprogress core stability, manual to lumbar and hips
--- NOTE | 2022-02-11 11:20 | PT.OTN ---
Addendum entered and electronically signed by Radha Carpenter PTA 02/11/22 11:30: KATHY Bartholomew assisted AZALEA Garcia including manual and instruction of HEP while being directly supervised throughout tx. Original Note: Current Diagnoses Pain in unspecified hip (02/11/22) Low back pain, unspecified (02/11/22) Difficulty in walking, not elsewhere classified (02/11/22) Unspecified abnormalities of gait and mobility (02/11/22) Abnormal posture (02/11/22) Weakness (02/11/22) Physical Therapy Treatment Note PT-OP-A Visit Information Start: 01/09/22 17:31 Freq: Status: Active Protocol: Document 02/11/22 10:36 [facility] (Rec: 02/11/22 11:30 [facility] [id number]) Out-Patient Physical Therapy Visit Information Visit Information Visit Type Treatment Note Visit Note 12/27 Visit Start Time 10:36 Visit Stop Time 11:20 Total Visit Minutes 44 Visit Number 6 Number of SECURITIES SALES ASSOCIATE Visits 1 PT-OP-B Current Condition Start: 01/09/22 17:31 Freq: Status: Active Protocol: Document 01/13/22 14:35 [facility] (Rec: 01/13/22 15:28 [facility] [id number]) Current Condition History of Current Condition Onset Date worsening over past couple years Current Complaints LBP History of Current Condition Pt reprots back surgery L3-5 for fusion in 2014 and did do some PT after that. She had PT for that and since then has had to be careful re: lifting. She also has scoliosis. Pt reports the past 2 years, she feels like her back is bending fwd w/walking and when she sits and reads she bends fwd. She feels like she walks w/ like a rolling motion and L heel scrapes the ground. 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 Pt reports even standing even a couple min is painful to back. Pt does show her dog and she has trouble lifting him to the table if she has to do it too many times (dog 36 lb). Pt had hip dysplagia as baby and wore braces laying down. 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 She had pain thast was getting worse and worse which is what led to surgery. No specific injury. Reports LBP from [employer] and on. Pt still does do some of her pool exercises from last time and goes for a mile walk a day (is harder if done at end of day. Prior Treatments and Tests PT after surgery that was helpful; been to chiro (says back is twisted & he gets things straightens it out and it helps for 2 weeks)-goes 1x/ month at most up to every couple months Treatment Goals Patient/Caregiver Goals Improve strength of hips and improve gait pattern, determine if she needs to go see surgeon again, be abl eto go up/down stairs w/o rail use , dec back pain PT-OP-C Subjective Start: 01/09/22 17:31 Freq: Status: Active Protocol: Document 02/11/22 10:36 [facility] (Rec: 02/11/22 11:30 [facility] [id number]) OP-PT Subjective Patient Comments Patient Comments Pt reports doing her stretching without end range pain and finds helping alot. She states is almost back to less pain weeks ago before set back and incorporating TA HEP again. PT-OP-D Balance Start: 01/09/22 17:31 Freq: Status: Active Protocol: Document 01/13/22 14:35 [facility] (Rec: 01/13/22 15:28 [facility] [id number]) Balance Tests Single Limb Standing Single Limb- Right 6 sec w/lat shear Single Limb- Left 25 sec w/lat shear PT-OP-F Manual Assessment Start: 01/09/22 17:31 Freq: Status: Active Protocol: Document 01/13/22 14:35 [facility] (Rec: 01/13/22 15:28 [facility] [id number]) Manual Assessments Soft Tissue Assessment Soft Tissue Mobility Assessment tightness and tenderness: R>L ES, scar, QL, glutes, piriformis Joint Mobility Assessment Joint Mobility Assessment Iliac crest R higher than L; equal greater trochanters PT-OP-G Mobility & Gait Start: 01/09/22 17:31 Freq: Status: Active Protocol: Document 01/13/22 14:35 [facility] (Rec: 01/13/22 15:28 [facility] [id number]) OP Gait Assessment Comments Gait Comments lat lean over LLE and slower gait, dec push off PT-OP-J Posture/Palpation/Skin Start: 01/09/22 17:31 Freq: Status: Active Protocol: Document 01/13/22 14:35 [facility] (Rec: 01/13/22 15:28 [facility] [id number]) Posture Evaluation [facility] Postural Classification System Zayra Postural Classifications Posterior/Anterior Vertebral Compression Test 1 Lumbar Protective Mechanism Left AP 1 Lumbar Protective Mechanism Right AP 1 Lumbar Protective Mechanism Left PA 1 Lumbar Protective Mechanism Right PA 2 PT-OP-K Range of Motion Start: 01/09/22 17:31 Freq: Status: Active Protocol: Document 01/13/22 14:35 [facility] (Rec: 01/13/22 15:28 [facility] [id number]) Lumbar Spine Range of Motion Lumbar Spine Active Extension 60 Rotation Left 33 Rotation Right 50 Lateral Flexion Left 50 Lateral Flexion Right 30 Comments flex w/PT guarding hips to sup patella; to ground; all motion at TL junction w/ext; pain B w/B SB; rot in deg; pain w/left rot PT-OP-L Special Tests Start: 01/09/22 17:31 Freq: Status: Active Protocol: Document 01/13/22 14:35 [facility] (Rec: 01/13/22 15:28 [facility] [id number]) Special Tests Lumbar Spine Special Tests Slump Test Results neg Straight Leg Raise Test Results R 58 deg w/back pain-dec if PF ,L 54 deg w/back pain- dec if PF PT-OP-M Strength Start: 01/09/22 17:31 Freq: Status: Active Protocol: Document 01/13/22 14:35 [facility] (Rec: 01/13/22 15:28 [facility] [id number]) Hip Strength Hip Manual Muscle Testing Right Flexion (L2) 3+ Fair+ Extension (S1) 4- Good- Abduction 3 Fair Adduction 5 Normal External Rotation 4- Good- Internal Rotation 4 Good Left Flexion (L2) 3+ Fair+ Extension (S1) 4- Good- Abduction 3 Fair Adduction 5 Normal External Rotation 3+ Fair+ Internal Rotation 3+ Fair+ Knee Strength Knee Manual Muscle Testing Right Flexion (S2) 5 Normal Extension (L3) 4 Good Left Flexion (S2) 5 Normal Extension (L3) 4 Good Ankle/Foot Strength Ankle and Foot Manual Muscle Testing Right Dorsiflexion (L4) 5 Normal Plantarflexion (S1) 5 Normal Comments PF tested seated Left Dorsiflexion (L4) 5 Normal Plantarflexion (S1) 5 Normal Comments PF tested seate PT-OP-Q Treatments Start: 01/09/22 17:31 Freq: Status: Active Protocol: Document 02/11/22 10:36 [facility] (Rec: 02/11/22 11:30 [facility] [id number]) Therapeutic Exercises Supine Exercises core Supine Exercise Name 1. scissor september 2. dying bug Side bilateral Reps/Minutes 15 ea Comments TAbd engagement, good pacing control Standing Exercises paloff press Standing Exercise Name added to HEP Resistance TB #3 Reps/Minutes 2x10 Comments good neutral pelvis, cued maintain front press navel TA Shld ext/row Standing Exercise Name review HEP Resistance #3 TB Reps/Minutes 2x10 each Comments good form Other Exercises quadruped Other Exercise Name 1. cat camel 2. UE ext/ LE ext over tball 3. child pose Resistance Reviewed past HEP Equipment Used over 55cm tball Reps/Minutes x10, Ch pose stretch 15 sec x3 Comments good feed back response, painfree B shlds w/ trunk over ball Manual Therapy Treatment Soft Tissue Mobilization hips Body Location glutes max/ med & piriformis R >L Mobilization Type Strumming,Sustained Pressure Intensity/Depth Moderate Body Position Prone Comments manual with good feedback lumbar Body Location R>L ES, B scars, QL, B around SI Mobilization Type Myofascial Release,Strumming, Sustained Pressure,Trigger Point Release Intensity/Depth Moderate Body Position Prone Comments manual with good feedback muscle softening, less tension PT-OP-R Modalities Start: 01/09/22 17:31 Freq: Status: Active Protocol: Document 02/03/22 13:49 [facility] (Rec: 02/03/22 14:43 [facility] [id number]) Hot Pack/Cold Pack Treatment Cold Pack Location LB Patient Position Prone Treatment Duration (minutes) 10 PT-OP-T Assessment and Plan Start: 01/09/22 17:31 Freq: Status: Active Protocol: Document 02/11/22 10:36 [facility] (Rec: 02/11/22 11:30 [facility] [id number]) Physical Therapy Assessment Goals standing Power Regulator Goal (LTG) Pt will be able to stand as needed for worka nd at home w/ o inc pain greater than 2/10 LTG Duration 03/15 stairs Short Term Goal (STG) Pt will be able to safely ascend stairs w/o rail reciprocally. STG Duration 02/12/22 [facility] Goal (LTG) Pt will be able to safely descend stairs w/o rail reciprocally. LTG Duration 03/15/22 balance Power Regulator Goal (LTG) Pt will be able to do SLS 20 sec B w/o lat shear of hip LTG Duration 03/15/22 strength Short Term Goal (STG) Pt will be indep w/HEP STG Duration 02/12/22 [facility] Goal (LTG) Pt will score at least 3/5 on LPM in all planes and improve LE MMT to at least 4+/5 B to improve pt's gait and ability to lift and stand as needed LTG Duration 03/15/22 ZHANNA Impairment 13/50 Short Term Goal (STG) Pt will improve score to at least 8/50 to show improvement in functional ability. STG Duration 02/12/22 [facility] Goal (LTG) Pt will improve score to at least 3/50 to show improvement in functional ability. LTG Duration 03/15/22 Assessment Summary Assessment Pt improved with core faciltation during september, LTR's today. Initiated quadruped UE or LE lift with noted L hip elevation, lessened with cues for slow and level pelvis TA engagement . Able to increase resistance to standing HEP, added TA rotation strengthening with no adverse affects. Physical Therapy Plan Frequency and Duration Frequency of Treatment 2x/Week Duration of Treatment 2 months Plan of Care Start Date 01/13/22 Plan of Care End Date 03/15/22 Therapeutic Interventions Therapeutic Interventions Aquatic Therapy,Balance Training,Gait Training,Home Exercise Program,Joint Mobilizations,Manual Therapy, Neuromuscular Re-education, Patient/Caregiver Education, Self-Care/Home Management,Soft Tissue Mobilization,Taping, Therapeutic Activities, Therapeutic Exercises Modalities Cold Pack/Ice Massage,Electric Stimulation,Hot Packs Next Visit Focus/Plan Next Note Type Treatment Note Next Visit Plan Recheck paloff press and quadrupend added last tx. POC: Continue core stability progression, manual to lumbar and hips
--- NOTE | 2022-02-13 13:46 | PT.OTN ---
Current Diagnoses Pain in unspecified hip (02/13/22) Low back pain, unspecified (02/13/22) Difficulty in walking, not elsewhere classified (02/13/22) Unspecified abnormalities of gait and mobility (02/13/22) Abnormal posture (02/13/22) Weakness (02/13/22) Physical Therapy Treatment Note PT-OP-A Visit Information Start: 01/09/22 17:31 Freq: Status: Active Protocol: Document 02/13/22 13:01 [facility] (Rec: 02/13/22 13:46 [facility] [id number]) Out-Patient Physical Therapy Visit Information Visit Information Visit Type Treatment Note Visit Note 01/26 Visit Start Time 13:04 Visit Stop Time 13:43 Total Visit Minutes 39 Visit Number 7 Number of KENO TERMINAL OPERATOR Visits 0 PT-OP-B Current Condition Start: 01/09/22 17:31 Freq: Status: Active Protocol: Document 01/13/22 14:35 [facility] (Rec: 01/13/22 15:28 [facility] [id number]) Current Condition History of Current Condition Onset Date worsening over past couple years Current Complaints LBP History of Current Condition Pt reprots back surgery L3-5 for fusion in 2014 and did do some PT after that. She had PT for that and since then has had to be careful re: lifting. She also has scoliosis. Pt reports the past 2 years, she feels like her back is bending fwd w/walking and when she sits and reads she bends fwd. She feels like she walks w/ like a rolling motion and L heel scrapes the ground. 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 Pt reports even standing even a couple min is painful to back. Pt does show her dog and she has trouble lifting him to the table if she has to do it too many times (dog 36 lb). Pt had hip dysplagia as baby and wore braces laying down. 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 She had pain thast was getting worse and worse which is what led to surgery. No specific injury. Reports LBP from [employer] and on. Pt still does do some of her pool exercises from last time and goes for a mile walk a day (is harder if done at end of day. Prior Treatments and Tests PT after surgery that was helpful; been to chiro (says back is twisted & he gets things straightens it out and it helps for 2 weeks)-goes 1x/ month at most up to every couple months Treatment Goals Patient/Caregiver Goals Improve strength of hips and improve gait pattern, determine if she needs to go see surgeon again, be abl eto go up/down stairs w/o rail use , dec back pain PT-OP-C Subjective Start: 01/09/22 17:31 Freq: Status: Active Protocol: Document 02/13/22 13:01 [facility] (Rec: 02/13/22 13:46 [facility] [id number]) OP-PT Subjective Patient Comments Patient Comments Pt reports pain still after gardening. PT-OP-D Balance Start: 01/09/22 17:31 Freq: Status: Active Protocol: Document 01/13/22 14:35 [facility] (Rec: 01/13/22 15:28 [facility] [id number]) Balance Tests Single Limb Standing Single Limb- Right 6 sec w/lat shear Single Limb- Left 25 sec w/lat shear PT-OP-F Manual Assessment Start: 01/09/22 17:31 Freq: Status: Active Protocol: Document 01/13/22 14:35 [facility] (Rec: 01/13/22 15:28 [facility] [id number]) Manual Assessments Soft Tissue Assessment Soft Tissue Mobility Assessment tightness and tenderness: R>L ES, scar, QL, glutes, piriformis Joint Mobility Assessment Joint Mobility Assessment Iliac crest R higher than L; equal greater trochanters PT-OP-G Mobility & Gait Start: 01/09/22 17:31 Freq: Status: Active Protocol: Document 01/13/22 14:35 [facility] (Rec: 01/13/22 15:28 [facility] [id number]) OP Gait Assessment Comments Gait Comments lat lean over LLE and slower gait, dec push off PT-OP-J Posture/Palpation/Skin Start: 01/09/22 17:31 Freq: Status: Active Protocol: Document 01/13/22 14:35 [facility] (Rec: 01/13/22 15:28 [facility] [id number]) Posture Evaluation Zayra Postural Classification System Zayra Postural Classifications Posterior/Anterior Vertebral Compression Test 1 Lumbar Protective Mechanism Left AP 1 Lumbar Protective Mechanism Right AP 1 Lumbar Protective Mechanism Left PA 1 Lumbar Protective Mechanism Right PA 2 PT-OP-K Range of Motion Start: 01/09/22 17:31 Freq: Status: Active Protocol: Document 01/13/22 14:35 [facility] (Rec: 01/13/22 15:28 [facility] [id number]) Lumbar Spine Range of Motion Lumbar Spine Active Extension 60 Rotation Left 33 Rotation Right 50 Lateral Flexion Left 50 Lateral Flexion Right 30 Comments flex w/PT guarding hips to sup patella; to ground; all motion at TL junction w/ext; pain B w/B SB; rot in deg; pain w/left rot PT-OP-L Special Tests Start: 01/09/22 17:31 Freq: Status: Active Protocol: Document 01/13/22 14:35 [facility] (Rec: 01/13/22 15:28 [facility] [id number]) Special Tests Lumbar Spine Special Tests Slump Test Results neg Straight Leg Raise Test Results R 58 deg w/back pain-dec if PF ,L 54 deg w/back pain- dec if PF PT-OP-M Strength Start: 01/09/22 17:31 Freq: Status: Active Protocol: Document 01/13/22 14:35 [facility] (Rec: 01/13/22 15:28 [facility] [id number]) Hip Strength Hip Manual Muscle Testing Right Flexion (L2) 3+ Fair+ Extension (S1) 4- Good- Abduction 3 Fair Adduction 5 Normal External Rotation 4- Good- Internal Rotation 4 Good Left Flexion (L2) 3+ Fair+ Extension (S1) 4- Good- Abduction 3 Fair Adduction 5 Normal External Rotation 3+ Fair+ Internal Rotation 3+ Fair+ Knee Strength Knee Manual Muscle Testing Right Flexion (S2) 5 Normal Extension (L3) 4 Good Left Flexion (S2) 5 Normal Extension (L3) 4 Good Ankle/Foot Strength Ankle and Foot Manual Muscle Testing Right Dorsiflexion (L4) 5 Normal Plantarflexion (S1) 5 Normal Comments PF tested seated Left Dorsiflexion (L4) 5 Normal Plantarflexion (S1) 5 Normal Comments PF tested seate PT-OP-Q Treatments Start: 01/09/22 17:31 Freq: Status: Active Protocol: Document 02/13/22 13:01 [facility] (Rec: 02/13/22 13:46 [facility] [id number]) Therapeutic Exercises Supine Exercises core Supine Exercise Name 1. scissor september 2. dying bug Side bilateral Reps/Minutes 15 ea Comments TAbd engagement, good pacing control bridge Supine Exercise Name bridge Side bilateral Reps/Minutes 10 sec x8 stretch Supine Exercise Name DKTC Side bilateral Reps/Minutes 30 sec Standing Exercises paloff press Standing Exercise Name review HEP Resistance TB #3 Reps/Minutes 2x10 Comments good neutral pelvis, cued maintain front press navel TA Shld ext/row Standing Exercise Name review HEP Resistance #3 TB Reps/Minutes x10 each Comments good form Other Exercises quadruped Other Exercise Name 1. cat camel 2. UE ext/ LE ext separately over tball 3. child pose Resistance Reviewed past HEP Equipment Used over 55cm tball Reps/Minutes x10, Ch pose stretch 15 sec x3 Comments good feed back response, painfree B shlds w/ trunk over ball Manual Therapy Treatment Soft Tissue Mobilization hips Body Location glutes max/ med & piriformis R >L Mobilization Type Strumming,Sustained Pressure Intensity/Depth Moderate Body Position Prone Comments manual with good feedback lumbar Body Location R>L ES, B scars, QL, B around SI Mobilization Type Myofascial Release,Strumming, Sustained Pressure,Trigger Point Release Intensity/Depth Moderate Body Position Prone Comments manual with good feedback muscle softening, less tension PT-OP-R Modalities Start: 01/09/22 17:31 Freq: Status: Active Protocol: Document 02/03/22 13:49 [facility] (Rec: 02/03/22 14:43 [facility] [id number]) Hot Pack/Cold Pack Treatment Cold Pack Location LB Patient Position Prone Treatment Duration (minutes) 10 PT-OP-T Assessment and Plan Start: 01/09/22 17:31 Freq: Status: Active Protocol: Document 02/13/22 13:01 [facility] (Rec: 02/13/22 13:46 [facility] [id number]) Physical Therapy Assessment Goals standing Clergy Member Goal (LTG) Pt will be able to stand as needed for worka nd at home w/ o inc pain greater than 2/10 LTG Duration 03/15 stairs Short Term Goal (STG) Pt will be able to safely ascend stairs w/o rail reciprocally. STG Duration 02/12/22 Clergy Member Goal (LTG) Pt will be able to safely descend stairs w/o rail reciprocally. LTG Duration 03/15/22 balance Clergy Member Goal (LTG) Pt will be able to do SLS 20 sec B w/o lat shear of hip LTG Duration 03/15/22 strength Short Term Goal (STG) Pt will be indep w/HEP STG Duration 02/12/22 Clergy Member Goal (LTG) Pt will score at least 3/5 on LPM in all planes and improve LE MMT to at least 4+/5 B to improve pt's gait and ability to lift and stand as needed LTG Duration 03/15/22 ZHANNA Impairment 13/50 Short Term Goal (STG) Pt will improve score to at least 8/50 to show improvement in functional ability. STG Duration 02/12/22 Alf Goal (LTG) Pt will improve score to at least 3/50 to show improvement in functional ability. LTG Duration 03/15/22 Assessment Summary Assessment Pt improved performance w/ exericses overall today but did require cues w/all exercises. Physical Therapy Plan Frequency and Duration Frequency of Treatment 2x/Week Duration of Treatment 2 months Plan of Care Start Date 01/13/22 Plan of Care End Date 03/15/22 Next Visit Focus/Plan Next Note Type Treatment Note Next Visit Plan Recheck paloff press and quadrupend added last tx. POC: Continue core stability progression, manual to lumbar and hips
--- NOTE | 2022-02-18 13:00 | PT.OTN ---
Current Diagnoses Pain in unspecified hip (02/18/22) Low back pain, unspecified (02/18/22) Difficulty in walking, not elsewhere classified (02/18/22) Unspecified abnormalities of gait and mobility (02/18/22) Abnormal posture (02/18/22) Weakness (02/18/22) Physical Therapy Treatment Note PT-OP-A Visit Information Start: 01/09/22 17:31 Freq: Status: Active Protocol: Document 02/18/22 12:17 [facility] (Rec: 02/18/22 13:03 [facility] [id number]) Out-Patient Physical Therapy Visit Information Visit Information Visit Type Treatment Note Visit Note 02/26 KATHY Bartholomew observed tx withpt permission. Visit Start Time 12:17 Visit Stop Time 13:00 Total Visit Minutes 42 Visit Number 8 Number of CUSTOMER SOLUTIONS ARCHITECT Visits 1 PT-OP-B Current Condition Start: 01/09/22 17:31 Freq: Status: Active Protocol: Document 01/13/22 14:35 [facility] (Rec: 01/13/22 15:28 [facility] [id number]) Current Condition History of Current Condition Onset Date worsening over past couple years Current Complaints LBP History of Current Condition Pt reprots back surgery L3-5 for fusion in 2014 and did do some PT after that. She had PT for that and since then has had to be careful re: lifting. She also has scoliosis. Pt reports the past 2 years, she feels like her back is bending fwd w/walking and when she sits and reads she bends fwd. She feels like she walks w/ like a rolling motion and L heel scrapes the ground. 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 Pt reports even standing even a couple min is painful to back. Pt does show her dog and she has trouble lifting him to the table if she has to do it too many times (dog 36 lb). Pt had hip dysplagia as baby and wore braces laying down. 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 She had pain thast was getting worse and worse which is what led to surgery. No specific injury. Reports LBP from [employer] and on. Pt still does do some of her pool exercises from last time and goes for a mile walk a day (is harder if done at end of day. Prior Treatments and Tests PT after surgery that was helpful; been to chiro (says back is twisted & he gets things straightens it out and it helps for 2 weeks)-goes 1x/ month at most up to every couple months Treatment Goals Patient/Caregiver Goals Improve strength of hips and improve gait pattern, determine if she needs to go see surgeon again, be abl eto go up/down stairs w/o rail use , dec back pain PT-OP-C Subjective Start: 01/09/22 17:31 Freq: Status: Active Protocol: Document 02/18/22 12:17 [facility] (Rec: 02/18/22 13:03 [facility] [id number]) OP-PT Subjective Patient Comments Patient Comments Pt reports no pain in back after feeling a pop after waking up today. She reports having difficulty with supine dying bug and quadruped bug PT-OP-D Balance Start: 01/09/22 17:31 Freq: Status: Active Protocol: Document 01/13/22 14:35 [facility] (Rec: 01/13/22 15:28 [facility] [id number]) Balance Tests Single Limb Standing Single Limb- Right 6 sec w/lat shear Single Limb- Left 25 sec w/lat shear PT-OP-F Manual Assessment Start: 01/09/22 17:31 Freq: Status: Active Protocol: Document 01/13/22 14:35 [facility] (Rec: 01/13/22 15:28 [facility] [id number]) Manual Assessments Soft Tissue Assessment Soft Tissue Mobility Assessment tightness and tenderness: R>L ES, scar, QL, glutes, piriformis Joint Mobility Assessment Joint Mobility Assessment Iliac crest R higher than L; equal greater trochanters PT-OP-G Mobility & Gait Start: 01/09/22 17:31 Freq: Status: Active Protocol: Document 01/13/22 14:35 [facility] (Rec: 01/13/22 15:28 [facility] [id number]) OP Gait Assessment Comments Gait Comments lat lean over LLE and slower gait, dec push off PT-OP-J Posture/Palpation/Skin Start: 01/09/22 17:31 Freq: Status: Active Protocol: Document 01/13/22 14:35 [facility] (Rec: 01/13/22 15:28 [facility] [id number]) Posture Evaluation Zayra Postural Classification System Zayra Postural Classifications Posterior/Anterior Vertebral Compression Test 1 Lumbar Protective Mechanism Left AP 1 Lumbar Protective Mechanism Right AP 1 Lumbar Protective Mechanism Left PA 1 Lumbar Protective Mechanism Right PA 2 PT-OP-K Range of Motion Start: 01/09/22 17:31 Freq: Status: Active Protocol: Document 01/13/22 14:35 [facility] (Rec: 01/13/22 15:28 [facility] [id number]) Lumbar Spine Range of Motion Lumbar Spine Active Extension 60 Rotation Left 33 Rotation Right 50 Lateral Flexion Left 50 Lateral Flexion Right 30 Comments flex w/PT guarding hips to sup patella; to ground; all motion at TL junction w/ext; pain B w/B SB; rot in deg; pain w/left rot PT-OP-L Special Tests Start: 01/09/22 17:31 Freq: Status: Active Protocol: Document 01/13/22 14:35 [facility] (Rec: 01/13/22 15:28 [facility] [id number]) Special Tests Lumbar Spine Special Tests Slump Test Results neg Straight Leg Raise Test Results R 58 deg w/back pain-dec if PF ,L 54 deg w/back pain- dec if PF PT-OP-M Strength Start: 01/09/22 17:31 Freq: Status: Active Protocol: Document 01/13/22 14:35 [facility] (Rec: 01/13/22 15:28 [facility] [id number]) Hip Strength Hip Manual Muscle Testing Right Flexion (L2) 3+ Fair+ Extension (S1) 4- Good- Abduction 3 Fair Adduction 5 Normal External Rotation 4- Good- Internal Rotation 4 Good Left Flexion (L2) 3+ Fair+ Extension (S1) 4- Good- Abduction 3 Fair Adduction 5 Normal External Rotation 3+ Fair+ Internal Rotation 3+ Fair+ Knee Strength Knee Manual Muscle Testing Right Flexion (S2) 5 Normal Extension (L3) 4 Good Left Flexion (S2) 5 Normal Extension (L3) 4 Good Ankle/Foot Strength Ankle and Foot Manual Muscle Testing Right Dorsiflexion (L4) 5 Normal Plantarflexion (S1) 5 Normal Comments PF tested seated Left Dorsiflexion (L4) 5 Normal Plantarflexion (S1) 5 Normal Comments PF tested seate PT-OP-Q Treatments Start: 01/09/22 17:31 Freq: Status: Active Protocol: Document 02/18/22 12:17 SP (Rec: 02/18/22 13:03 SP [id number]) Therapeutic Exercises Supine Exercises core Supine Exercise Name 1. dying bug Side bilateral Reps/Minutes 15 ea Comments TAbd engagement, extremity coordination, & pace bridge Supine Exercise Name bridge Side bilateral Reps/Minutes 1x10 LTR Supine Exercise Name comfortable range Side bilateral Resistance AROM feet on table> over tball > against #1 TB anchored by CUSTOMER SOLUTIONS ARCHITECT Equipment Used 55 cm polish ball Reps/Minutes 8 Comments cues for segmental stability Standing Exercises paloff press Standing Exercise Name review HEP Resistance TB #3 Reps/Minutes 2x10 Comments cued R shldr to prevent elevation & protraction Other Exercises quadruped Other Exercise Name UE ext/ LE ext separately over tball Resistance Reviewed past HEP Equipment Used over 55cm tball > no ball Reps/Minutes x10, Ch pose stretch 15 sec x3 Comments cues for extremity height, WBOS, & core stabilization Gait Training Gait Activity Dynamic Gait Description Walking w/ hurdles Device Used Hurdles Level of Assistance S Surface Firm Distance/Duration 8 reps Comments Cues for posture, LE alignment to encourage toes to point forward, decreased lateral sway & core stabilzation Front of Mirror Description Alignment in mirror walking Device Used mirror, blue sanchez bag Level of Assistance S Surface Firm Distance/Duration 10 ft x 4 Comments Cues for posture, LE alignment to encourage toes to point forward, decreased lateral sway & core stabilzation PT-OP-R Modalities Start: 01/09/22 17:31 Freq: Status: Active Protocol: Document 02/03/22 13:49 [facility] (Rec: 02/03/22 14:43 [facility] [id number]) Hot Pack/Cold Pack Treatment Cold Pack Location LB Patient Position Prone Treatment Duration (minutes) 10 PT-OP-T Assessment and Plan Start: 01/09/22 17:31 Freq: Status: Active Protocol: Document 02/18/22 12:17 SP (Rec: 02/18/22 13:03 [facility] [id number]) Physical Therapy Assessment Goals standing Valve Maker Goal (LTG) Pt will be able to stand as needed for worka nd at home w/ o inc pain greater than 2/10 LTG Duration 03/15 stairs Short Term Goal (STG) Pt will be able to safely ascend stairs w/o rail reciprocally. STG Duration 02/12/22 Senior Care Goal (LTG) Pt will be able to safely descend stairs w/o rail reciprocally. LTG Duration 03/15/22 balance Valve Maker Goal (LTG) Pt will be able to do SLS 20 sec B w/o lat shear of hip LTG Duration 03/15/22 strength Short Term Goal (STG) Pt will be indep w/HEP STG Duration 02/12/22 Senior Care Goal (LTG) Pt will score at least 3/5 on LPM in all planes and improve LE MMT to at least 4+/5 B to improve pt's gait and ability to lift and stand as needed LTG Duration 03/15/22 ZHANNA Impairment 13/50 Short Term Goal (STG) Pt will improve score to at least 8/50 to show improvement in functional ability. STG Duration 02/12/22 Valve Maker Goal (LTG) Pt will improve score to at least 3/50 to show improvement in functional ability. LTG Duration 03/15/22 Assessment Summary Assessment Pt improved with TA, hip abd and posturing alignment post ther ex and use of mirror for self feedback to normalize gait. Physical Therapy Plan Frequency and Duration Frequency of Treatment 2x/Week Duration of Treatment 2 months Plan of Care Start Date 01/13/22 Plan of Care End Date 03/15/22
--- NOTE | 2022-02-20 13:45 | PT.OTN ---
Current Diagnoses Pain in unspecified hip (02/20/22) Low back pain, unspecified (02/20/22) Difficulty in walking, not elsewhere classified (02/20/22) Unspecified abnormalities of gait and mobility (02/20/22) Abnormal posture (02/20/22) Weakness (02/20/22) Physical Therapy Treatment Note PT-OP-A Visit Information Start: 01/09/22 17:31 Freq: Status: Active Protocol: Document 02/20/22 13:05 SP (Rec: 02/20/22 13:51 SP [id number]) Out-Patient Physical Therapy Visit Information Visit Information Visit Type Treatment Note Visit Note 03/29 KATHY Bartholomew assited in instruction of ther ex to pt with direct supervision and direction needed of TRANSMISSION SUPERVISOR Radha throughout tx. Visit Start Time 13:05 Visit Stop Time 13:45 Total Visit Minutes 40 Visit Number 9 Number of TRANSMISSION SUPERVISOR Visits 2 PT-OP-B Current Condition Start: 01/09/22 17:31 Freq: Status: Active Protocol: Document 01/13/22 14:35 [facility] (Rec: 01/13/22 15:28 [facility] [id number]) Current Condition History of Current Condition Onset Date worsening over past couple years Current Complaints LBP History of Current Condition Pt reprots back surgery L3-5 for fusion in 2014 and did do some PT after that. She had PT for that and since then has had to be careful re: lifting. She also has scoliosis. Pt reports the past 2 years, she feels like her back is bending fwd w/walking and when she sits and reads she bends fwd. She feels like she walks w/ like a rolling motion and L heel scrapes the ground. 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 Pt reports even standing even a couple min is painful to back. Pt does show her dog and she has trouble lifting him to the table if she has to do it too many times (dog 36 lb). Pt had hip dysplagia as baby and wore braces laying down. 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 She had pain thast was getting worse and worse which is what led to surgery. No specific injury. Reports LBP from [employer] and on. Pt still does do some of her pool exercises from last time and goes for a mile walk a day (is harder if done at end of day. Prior Treatments and Tests PT after surgery that was helpful; been to chiro (says back is twisted & he gets things straightens it out and it helps for 2 weeks)-goes 1x/ month at most up to every couple months Treatment Goals Patient/Caregiver Goals Improve strength of hips and improve gait pattern, determine if she needs to go see surgeon again, be abl eto go up/down stairs w/o rail use , dec back pain PT-OP-C Subjective Start: 01/09/22 17:31 Freq: Status: Active Protocol: Document 02/18/22 12:17 SP (Rec: 02/18/22 13:03 SP [id number]) OP-PT Subjective Patient Comments Patient Comments Pt reports no pain in back after feeling a pop after waking up today. She reports having difficulty with supine dying bug and quadruped bug PT-OP-D Balance Start: 01/09/22 17:31 Freq: Status: Active Protocol: Document 01/13/22 14:35 [facility] (Rec: 01/13/22 15:28 [facility] [id number]) Balance Tests Single Limb Standing Single Limb- Right 6 sec w/lat shear Single Limb- Left 25 sec w/lat shear PT-OP-F Manual Assessment Start: 01/09/22 17:31 Freq: Status: Active Protocol: Document 01/13/22 14:35 [facility] (Rec: 01/13/22 15:28 [facility] [id number]) Manual Assessments Soft Tissue Assessment Soft Tissue Mobility Assessment tightness and tenderness: R>L ES, scar, QL, glutes, piriformis Joint Mobility Assessment Joint Mobility Assessment Iliac crest R higher than L; equal greater trochanters PT-OP-G Mobility & Gait Start: 01/09/22 17:31 Freq: Status: Active Protocol: Document 01/13/22 14:35 [facility] (Rec: 01/13/22 15:28 [facility] [id number]) OP Gait Assessment Comments Gait Comments lat lean over LLE and slower gait, dec push off PT-OP-J Posture/Palpation/Skin Start: 01/09/22 17:31 Freq: Status: Active Protocol: Document 01/13/22 14:35 [facility] (Rec: 01/13/22 15:28 [facility] [id number]) Posture Evaluation Zayra Postural Classification System Zayra Postural Classifications Posterior/Anterior Vertebral Compression Test 1 Lumbar Protective Mechanism Left AP 1 Lumbar Protective Mechanism Right AP 1 Lumbar Protective Mechanism Left PA 1 Lumbar Protective Mechanism Right PA 2 PT-OP-K Range of Motion Start: 01/09/22 17:31 Freq: Status: Active Protocol: Document 01/13/22 14:35 [facility] (Rec: 01/13/22 15:28 [facility] [id number]) Lumbar Spine Range of Motion Lumbar Spine Active Extension 60 Rotation Left 33 Rotation Right 50 Lateral Flexion Left 50 Lateral Flexion Right 30 Comments flex w/PT guarding hips to sup patella; to ground; all motion at TL junction w/ext; pain B w/B SB; rot in deg; pain w/left rot PT-OP-L Special Tests Start: 01/09/22 17:31 Freq: Status: Active Protocol: Document 01/13/22 14:35 [facility] (Rec: 01/13/22 15:28 [facility] [id number]) Special Tests Lumbar Spine Special Tests Slump Test Results neg Straight Leg Raise Test Results R 58 deg w/back pain-dec if PF ,L 54 deg w/back pain- dec if PF PT-OP-M Strength Start: 01/09/22 17:31 Freq: Status: Active Protocol: Document 01/13/22 14:35 [facility] (Rec: 01/13/22 15:28 [facility] [id number]) Hip Strength Hip Manual Muscle Testing Right Flexion (L2) 3+ Fair+ Extension (S1) 4- Good- Abduction 3 Fair Adduction 5 Normal External Rotation 4- Good- Internal Rotation 4 Good Left Flexion (L2) 3+ Fair+ Extension (S1) 4- Good- Abduction 3 Fair Adduction 5 Normal External Rotation 3+ Fair+ Internal Rotation 3+ Fair+ Knee Strength Knee Manual Muscle Testing Right Flexion (S2) 5 Normal Extension (L3) 4 Good Left Flexion (S2) 5 Normal Extension (L3) 4 Good Ankle/Foot Strength Ankle and Foot Manual Muscle Testing Right Dorsiflexion (L4) 5 Normal Plantarflexion (S1) 5 Normal Comments PF tested seated Left Dorsiflexion (L4) 5 Normal Plantarflexion (S1) 5 Normal Comments PF tested seate PT-OP-Q Treatments Start: 01/09/22 17:31 Freq: Status: Active Protocol: Document 02/20/22 13:05 SP (Rec: 02/20/22 13:51 SP [id number]) Gym Equipment Shuttle Balance unilateral squat Details 37# Reps/Duration 2x10 Comments cued occasional cues for knee alignment with midfoot bilateral squat Details 75#> 87# w/ RTB around knees Reps/Duration 2x15 Comments cued hip abd fac during con/ ecc directioning. Therapeutic Exercises Supine Exercises core Supine Exercise Name 1. dying bug Side bilateral Equipment Used yoga mat Reps/Minutes 15 ea Comments TAbd engagement, extremity coordination, & pace Standing Exercises SLS star taps Standing Exercise Name added to HEP Side bilateral Equipment Used 3 cones (12, 3, 6 o'clock) Reps/Minutes x8 reps each LE Comments cued tall posturing, core and hip abd fac mov/stationary LE SLS Standing Exercise Name added to HEP Comments RLE 5s, 3s, 7s; LLE 12 s, 10s , 5s sidesteps Standing Exercise Name review HEP: cued no lat lean Side bilateral Resistance lvl 1 at ankles Reps/Minutes 20ft ea Comments cues core, knee alignment, level shldrs for core fac, foot clearance Other Exercises quadruped Other Exercise Name UE ext/ LE ext Resistance Reviewed HEP Equipment Used yoga mat Reps/Minutes x10, Ch pose stretch 15 sec x3 Comments improved stability, slower pacing, knee spacing WBOS Gait Training Gait Activity Stairs Comments Ascend / descend stairs reciprocal stepping w/o handrails, modified slight side step desending functional for pt. Front of Mirror Description Alignment in mirror walking Device Used mirror Level of Assistance S Surface Firm Distance/Duration 10 ft x 4 Comments Cues for posture, LE alignment to encourage toes to point forward, decreased lateral sway & core stabilzation PT-OP-R Modalities Start: 01/09/22 17:31 Freq: Status: Active Protocol: Document 02/03/22 13:49 [facility] (Rec: 02/03/22 14:43 [facility] [id number]) Hot Pack/Cold Pack Treatment Cold Pack Location LB Patient Position Prone Treatment Duration (minutes) 10 PT-OP-T Assessment and Plan Start: 01/09/22 17:31 Freq: Status: Active Protocol: Document 02/20/22 13:05 SP (Rec: 02/20/22 13:51 SP [id number]) Physical Therapy Assessment Goals standing [facility] Goal (LTG) Pt will be able to stand as needed for work and at home w/ o inc pain greater than 2/10 02/20/22 (progressing 4/10 after 20 minutes of work, use of seated rest and ice diminishes symptoms). LTG Duration 03/15 (progressing 02/20/22) stairs Short Term Goal (STG) Pt will be able to safely ascend stairs w/o rail reciprocally. 8 goal MET STG Duration 02/12/22 GOAL MET 02/20/22 Print Buyer Goal (LTG) Pt will be able to safely descend stairs w/o rail reciprocally. 8 goal MET LTG Duration 03/15/22 GOAL MET 02/20/22 balance Print Buyer Goal (LTG) Pt will be able to do SLS 20 sec B w/o lat shear of hip 02/20/22: progressing: RLE 5s, 3s, 7s; LLE 12 s, 10s, 5s LTG Duration 03/15/22 progressing strength Short Term Goal (STG) Pt will be indep w/HEP STG Duration 02/12/22 Print Buyer Goal (LTG) Pt will score at least 3/5 on LPM in all planes and improve LE MMT to at least 4+/5 B to improve pt's gait and ability to lift and stand as needed LTG Duration 03/15/22 ZHANNA Impairment 13/50 Short Term Goal (STG) Pt will improve score to at least 8/50 to show improvement in functional ability. STG Duration 02/12/22 [facility] Goal (LTG) Pt will improve score to at least 3/50 to show improvement in functional ability. LTG Duration 03/15/22 Assessment Summary Assessment Pt improved with quadruped bird dog and supine dying bug w/ min cues for lower extremity lengthening core challenge. Pt improved with hip abductor core alignment with cueing with bar across shoulders helped facilitate core, hip abd and tall posture . Continued skilled therapy for decreased lateral sway with walking and stability endurance with walking in community and instruction during dog shows. Physical Therapy Plan Frequency and Duration Frequency of Treatment 2x/Week Duration of Treatment 2 months Plan of Care Start Date 01/13/22 Plan of Care End Date 03/15/22 Therapeutic Interventions Therapeutic Interventions Aquatic Therapy,Balance Training,Gait Training,Home Exercise Program,Joint Mobilizations,Manual Therapy, Neuromuscular Re-education, Patient/Caregiver Education, Self-Care/Home Management,Soft Tissue Mobilization,Taping, Therapeutic Activities, Therapeutic Exercises Modalities Cold Pack/Ice Massage,Electric Stimulation,Hot Packs Next Visit Focus/Plan Next Note Type Treatment Note Next Visit Plan Recheck SLS and star taps. POC: Continue core stability progression, manual to lumbar and hips
--- NOTE | 2022-02-24 16:45 | PT.OTN ---
Current Diagnoses Pain in unspecified hip (03/06/22) Low back pain, unspecified (03/06/22) Difficulty in walking, not elsewhere classified (03/06/22) Unspecified abnormalities of gait and mobility (03/06/22) Abnormal posture (03/06/22) Weakness (03/06/22) Physical Therapy Treatment Note PT-OP-A Visit Information Start: 01/09/22 17:31 Freq: Status: Active Protocol: Document 02/24/22 15:25 [facility] (Rec: 02/24/22 18:53 [facility] [id number]) Out-Patient Physical Therapy Visit Information Visit Information Visit Type Treatment Note Visit Note 04/28 Visit Start Time 15:15 Visit Stop Time 15:15 Total Visit Minutes 40 Visit Number 10 Number of BOAT OUTBOARD ENGINE MECHANIC Visits 3 PT-OP-B Current Condition Start: 01/09/22 17:31 Freq: Status: Active Protocol: Document 01/13/22 14:35 [facility] (Rec: 01/13/22 15:28 [facility] [id number]) Current Condition History of Current Condition Onset Date worsening over past couple years Current Complaints LBP History of Current Condition Pt reprots back surgery L3-5 for fusion in 2014 and did do some PT after that. She had PT for that and since then has had to be careful re: lifting. She also has scoliosis. Pt reports the past 2 years, she feels like her back is bending fwd w/walking and when she sits and reads she bends fwd. She feels like she walks w/ like a rolling motion and L heel scrapes the ground. 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 Pt reports even standing even a couple min is painful to back. Pt does show her dog and she has trouble lifting him to the table if she has to do it too many times (dog 36 lb). Pt had hip dysplagia as baby and wore braces laying down. 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 She had pain thast was getting worse and worse which is what led to surgery. No specific injury. Reports LBP from [employer] and on. Pt still does do some of her pool exercises from last time and goes for a mile walk a day (is harder if done at end of day. Prior Treatments and Tests PT after surgery that was helpful; been to chiro (says back is twisted & he gets things straightens it out and it helps for 2 weeks)-goes 1x/ month at most up to every couple months Treatment Goals Patient/Caregiver Goals Improve strength of hips and improve gait pattern, determine if she needs to go see surgeon again, be abl eto go up/down stairs w/o rail use , dec back pain PT-OP-C Subjective Start: 01/09/22 17:31 Freq: Status: Active Protocol: Document 03/12/22 15:25 [facility] (Rec: 02/24/22 18:53 [facility] [id number]) OP-PT Subjective Patient Comments Patient Comments Pt reports low back pain is 3/ 10. PT-OP-D Balance Start: 01/09/22 17:31 Freq: Status: Active Protocol: Document 01/13/22 14:35 [facility] (Rec: 01/13/22 15:28 [facility] [id number]) Balance Tests Single Limb Standing Single Limb- Right 6 sec w/lat shear Single Limb- Left 25 sec w/lat shear PT-OP-F Manual Assessment Start: 01/09/22 17:31 Freq: Status: Active Protocol: Document 01/13/22 14:35 [facility] (Rec: 01/13/22 15:28 [facility] [id number]) Manual Assessments Soft Tissue Assessment Soft Tissue Mobility Assessment tightness and tenderness: R>L ES, scar, QL, glutes, piriformis Joint Mobility Assessment Joint Mobility Assessment Iliac crest R higher than L; equal greater trochanters PT-OP-G Mobility & Gait Start: 01/09/22 17:31 Freq: Status: Active Protocol: Document 01/13/22 14:35 [facility] (Rec: 01/13/22 15:28 [facility] [id number]) OP Gait Assessment Comments Gait Comments lat lean over LLE and slower gait, dec push off PT-OP-J Posture/Palpation/Skin Start: 01/09/22 17:31 Freq: Status: Active Protocol: Document 03/04/22 15:21 [facility] (Rec: 03/04/22 17:46 [facility] [id number]) Posture Evaluation [facility] Postural Classification System Lumbar Protective Mechanism Left AP 2 Lumbar Protective Mechanism Right AP 2 Lumbar Protective Mechanism Left PA 1 Lumbar Protective Mechanism Right PA 3 PT-OP-K Range of Motion Start: 01/09/22 17:31 Freq: Status: Active Protocol: Document 01/13/22 14:35 [facility] (Rec: 01/13/22 15:28 [facility] [id number]) Lumbar Spine Range of Motion Lumbar Spine Active Extension 60 Rotation Left 33 Rotation Right 50 Lateral Flexion Left 50 Lateral Flexion Right 30 Comments flex w/PT guarding hips to sup patella; to ground; all motion at TL junction w/ext; pain B w/B SB; rot in deg; pain w/left rot PT-OP-L Special Tests Start: 01/09/22 17:31 Freq: Status: Active Protocol: Document 01/13/22 14:35 [facility] (Rec: 01/13/22 15:28 [facility] [id number]) Special Tests Lumbar Spine Special Tests Slump Test Results neg Straight Leg Raise Test Results R 58 deg w/back pain-dec if PF ,L 54 deg w/back pain- dec if PF PT-OP-M Strength Start: 01/09/22 17:31 Freq: Status: Active Protocol: Document 03/04/22 15:21 [facility] (Rec: 03/04/22 17:46 [facility] [id number]) Hip Strength Hip Manual Muscle Testing Right Flexion (L2) 4- Good- Extension (S1) 4- Good- Abduction 3+ Fair+ Adduction 5 Normal External Rotation 4+ Good+ Internal Rotation 4+ Good+ Left Flexion (L2) 4 Good Extension (S1) 4- Good- Abduction 3 Fair Adduction 5 Normal External Rotation 4 Good Internal Rotation 4+ Good+ Comments pain abd lat hip Knee Strength Knee Manual Muscle Testing Right Flexion (S2) 5 Normal Extension (L3) 5 Normal Left Flexion (S2) 5 Normal Extension (L3) 5 Normal Ankle/Foot Strength Ankle and Foot Manual Muscle Testing Right Dorsiflexion (L4) 5 Normal Plantarflexion (S1) 5 Normal Comments PF tested seated Left Dorsiflexion (L4) 5 Normal Plantarflexion (S1) 5 Normal Comments PF tested seate PT-OP-Q Treatments Start: 01/09/22 17:31 Freq: Status: Active Protocol: Document 03/12/22 15:25 [facility] (Rec: 02/24/22 18:53 [facility] [id number]) Gym Equipment Shuttle Balance unilateral squat Details 37# Reps/Duration 2x10 Comments cued occasional cues for knee alignment with midfoot bilateral squat Details 75#> 62# w/ RTB around knees Reps/Duration 2x15 Comments cued hip abd fac during con/ ecc directioning. Therapeutic Exercises Sidelying Exercises Open Book Stretch Side bilateral Reps/Minutes x10 ea Comments LBP decreased slightly w/ cue for core Standing Exercises SLS star taps Standing Exercise Name reviewed HEP Side bilateral Equipment Used 3 cones (12, 3, 6 o'clock) Reps/Minutes x8 reps each LE Comments cued tall posturing, core and hip abd fac mov/stationary LE SLS Comments LLE 30.7s, 19.9s, 13.4s RLE: 32.6s, 24s, 12.4s Manual Therapy Treatment Soft Tissue Mobilization hips Body Location glutes max/ med & piriformis R >L Mobilization Type Strumming,Sustained Pressure, Trigger Point Release Intensity/Depth Moderate Body Position Prone Comments piriformis focus lumbar Body Location R>L ES, B scars, QL, B around SI Mobilization Type Myofascial Release,Strumming, Sustained Pressure,Trigger Point Release Intensity/Depth Moderate Body Position Prone PT-OP-R Modalities Start: 01/09/22 17:31 Freq: Status: Active Protocol: Document 02/03/22 13:49 [facility] (Rec: 02/03/22 14:43 [facility] [id number]) Hot Pack/Cold Pack Treatment Cold Pack Location LB Patient Position Prone Treatment Duration (minutes) 10 PT-OP-T Assessment and Plan Start: 01/09/22 17:31 Freq: Status: Active Protocol: Document 03/12/22 15:25 [facility] (Rec: 02/24/22 18:53 [facility] [id number]) Physical Therapy Assessment Impairments Impairments Activity Tolerance,Balance, Functional Activities, Functional Mobility,Gait,Pain, Posture,ROM,Soft Tissue Mobility,Strength Goals standing Picture Framer Goal (LTG) Pt will be able to stand as needed for work and at home w/ o inc pain greater than 2/10 02/20/22 (progressing 4/10 after 20 minutes of work, use of seated rest and ice diminishes symptoms). LTG Duration 03/15 (progressing 02/20/22) stairs Short Term Goal (STG) Pt will be able to safely ascend stairs w/o rail reciprocally. 02/20 goal MET STG Duration 02/12/22 GOAL MET 02/20/22 [facility] Goal (LTG) Pt will be able to safely descend stairs w/o rail reciprocally. 02/20 goal MET LTG Duration 03/15/22 GOAL MET 02/20/22 balance [facility] Goal (LTG) Pt will be able to do SLS 20 sec B w/o lat shear of hip 02/20/22: progressing: RLE 5s, 3s, 7s; LLE 12 s, 10s, 5s LTG Duration 03/15/22 progressing strength Short Term Goal (STG) Pt will be indep w/HEP STG Duration 02/12/22 [facility] Goal (LTG) Pt will score at least 3/5 on LPM in all planes and improve LE MMT to at least 4+/5 B to improve pt's gait and ability to lift and stand as needed LTG Duration 03/15/22 ZHANNA Impairment 13/50 Short Term Goal (STG) Pt will improve score to at least 8/50 to show improvement in functional ability. STG Duration 02/12/22 Picture Framer Goal (LTG) Pt will improve score to at least 3/50 to show improvement in functional ability. LTG Duration 03/15/22 Assessment Summary Assessment Treatment focus today on HEP review and manual therapy. Pt demonstrates improved balance w/ longer SLS today than - LLE is more challenged than RLE. Pt requires cues for slower pacing with star taps and had a loss of balance to L when standing on RLE, but was able to recover. Manual focus on piriformis w/ decreased palpable tightness after. Low back pain during open book stretch improves slightly w/ cues for core engagement. Physical Therapy Plan Next Visit Focus/Plan Next Note Type Treatment Note Next Visit Plan POC: Continue core stability progression, manual to lumbar and hips
--- NOTE | 2022-02-26 09:06 | PT.OTN ---
Current Diagnoses Pain in unspecified hip (02/26/22) Low back pain, unspecified (02/26/22) Difficulty in walking, not elsewhere classified (02/26/22) Unspecified abnormalities of gait and mobility (02/26/22) Abnormal posture (02/26/22) Weakness (02/26/22) Physical Therapy Treatment Note PT-OP-A Visit Information Start: 01/09/22 17:31 Freq: Status: Active Protocol: Document 02/26/22 08:21 SP (Rec: 02/26/22 09:06 SP [id number]) Out-Patient Physical Therapy Visit Information Visit Information Visit Type Treatment Note Visit Note 05/29 PN next tx. Visit Start Time 08:21 Visit Stop Time 09:06 Total Visit Minutes 45 Visit Number 11 Number of MONOTYPE KEYBOARD OPERATOR Visits 4 PT-OP-B Current Condition Start: 01/09/22 17:31 Freq: Status: Active Protocol: Document 01/13/22 14:35 [facility] (Rec: 01/13/22 15:28 [facility] [id number]) Current Condition History of Current Condition Onset Date worsening over past couple years Current Complaints LBP History of Current Condition Pt reprots back surgery L3-5 for fusion in 2014 and did do some PT after that. She had PT for that and since then has had to be careful re: lifting. She also has scoliosis. Pt reports the past 2 years, she feels like her back is bending fwd w/walking and when she sits and reads she bends fwd. She feels like she walks w/ like a rolling motion and L heel scrapes the ground. 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 Pt reports even standing even a couple min is painful to back. Pt does show her dog and she has trouble lifting him to the table if she has to do it too many times (dog 36 lb). Pt had hip dysplagia as baby and wore braces laying down. 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 She had pain thast was getting worse and worse which is what led to surgery. No specific injury. Reports LBP from [employer] and on. Pt still does do some of her pool exercises from last time and goes for a mile walk a day (is harder if done at end of day. Prior Treatments and Tests PT after surgery that was helpful; been to chiro (says back is twisted & he gets things straightens it out and it helps for 2 weeks)-goes 1x/ month at most up to every couple months Treatment Goals Patient/Caregiver Goals Improve strength of hips and improve gait pattern, determine if she needs to go see surgeon again, be abl eto go up/down stairs w/o rail use , dec back pain PT-OP-C Subjective Start: 01/09/22 17:31 Freq: Status: Active Protocol: Document 02/26/22 08:21 SP (Rec: 02/26/22 09:06 SP [id number]) OP-PT Subjective Patient Comments Patient Comments Pt reports woke up this am with back pain and stiff, stated did some mopping of her floors and maybe why backing bothering her. She reports her back pain worse some days, better others.P states compliant with HEP. PT-OP-D Balance Start: 01/09/22 17:31 Freq: Status: Active Protocol: Document 01/13/22 14:35 [facility] (Rec: 01/13/22 15:28 [facility] [id number]) Balance Tests Single Limb Standing Single Limb- Right 6 sec w/lat shear Single Limb- Left 25 sec w/lat shear PT-OP-F Manual Assessment Start: 01/09/22 17:31 Freq: Status: Active Protocol: Document 01/13/22 14:35 [facility] (Rec: 01/13/22 15:28 [facility] [id number]) Manual Assessments Soft Tissue Assessment Soft Tissue Mobility Assessment tightness and tenderness: R>L ES, scar, QL, glutes, piriformis Joint Mobility Assessment Joint Mobility Assessment Iliac crest R higher than L; equal greater trochanters PT-OP-G Mobility & Gait Start: 01/09/22 17:31 Freq: Status: Active Protocol: Document 01/13/22 14:35 [facility] (Rec: 01/13/22 15:28 [facility] [id number]) OP Gait Assessment Comments Gait Comments lat lean over LLE and slower gait, dec push off PT-OP-J Posture/Palpation/Skin Start: 01/09/22 17:31 Freq: Status: Active Protocol: Document 01/13/22 14:35 [facility] (Rec: 01/13/22 15:28 [facility] [id number]) Posture Evaluation Zayra Postural Classification System [facility] Postural Classifications Posterior/Anterior Vertebral Compression Test 1 Lumbar Protective Mechanism Left AP 1 Lumbar Protective Mechanism Right AP 1 Lumbar Protective Mechanism Left PA 1 Lumbar Protective Mechanism Right PA 2 PT-OP-K Range of Motion Start: 01/09/22 17:31 Freq: Status: Active Protocol: Document 01/13/22 14:35 [facility] (Rec: 01/13/22 15:28 [facility] [id number]) Lumbar Spine Range of Motion Lumbar Spine Active Extension 60 Rotation Left 33 Rotation Right 50 Lateral Flexion Left 50 Lateral Flexion Right 30 Comments flex w/PT guarding hips to sup patella; to ground; all motion at TL junction w/ext; pain B w/B SB; rot in deg; pain w/left rot PT-OP-L Special Tests Start: 01/09/22 17:31 Freq: Status: Active Protocol: Document 01/13/22 14:35 [facility] (Rec: 01/13/22 15:28 [facility] [id number]) Special Tests Lumbar Spine Special Tests Slump Test Results neg Straight Leg Raise Test Results R 58 deg w/back pain-dec if PF ,L 54 deg w/back pain- dec if PF PT-OP-M Strength Start: 01/09/22 17:31 Freq: Status: Active Protocol: Document 01/13/22 14:35 [facility] (Rec: 01/13/22 15:28 [facility] [id number]) Hip Strength Hip Manual Muscle Testing Right Flexion (L2) 3+ Fair+ Extension (S1) 4- Good- Abduction 3 Fair Adduction 5 Normal External Rotation 4- Good- Internal Rotation 4 Good Left Flexion (L2) 3+ Fair+ Extension (S1) 4- Good- Abduction 3 Fair Adduction 5 Normal External Rotation 3+ Fair+ Internal Rotation 3+ Fair+ Knee Strength Knee Manual Muscle Testing Right Flexion (S2) 5 Normal Extension (L3) 4 Good Left Flexion (S2) 5 Normal Extension (L3) 4 Good Ankle/Foot Strength Ankle and Foot Manual Muscle Testing Right Dorsiflexion (L4) 5 Normal Plantarflexion (S1) 5 Normal Comments PF tested seated Left Dorsiflexion (L4) 5 Normal Plantarflexion (S1) 5 Normal Comments PF tested seate PT-OP-Q Treatments Start: 01/09/22 17:31 Freq: Status: Active Protocol: Document 02/26/22 08:21 SP (Rec: 08/10/22 09:06 SP [id number]) Therapeutic Exercises Supine Exercises bridge Supine Exercise Name bridge Side bilateral Resistance BLE over 55cm Tball Reps/Minutes x10 Comments cued neutral PPT for no LB recruitment, better core fac reported LTR Supine Exercise Name comfortable range Side bilateral Resistance AROM feet on table> over tball > against #1 TB anchored by MONOTYPE KEYBOARD OPERATOR Equipment Used 55 cm vincentian ball Reps/Minutes x10 Comments cues for segmental stability Standing Exercises band walk Standing Exercise Name added to HEP Resistance TB #1 loop Equipment Used at rail Reps/Minutes 10 ft x2 laps Comments cued posturing, trailing LE clearance SLS star taps Standing Exercise Name reviewed HEP Side bilateral Equipment Used 3 cones (12, 3, 6 o'clock) Reps/Minutes 2x8 reps each LE Comments cued posturing, light floor contact not wB into moving LE for hip abd fac SLS Standing Exercise Name HEP reviewed Comments LLE 23s RLE: 8s, 30s Manual Therapy Treatment Soft Tissue Mobilization hips Body Location glutes max/ med & piriformis R >L Mobilization Type Strumming,Sustained Pressure Intensity/Depth Moderate Body Position Prone Comments manual with good feedback lumbar Body Location R=L ES, B scars, QL, B around SI Mobilization Type Myofascial Release,Strumming, Sustained Pressure,Trigger Point Release Intensity/Depth Moderate Body Position Prone Comments manual with good feedback muscle softening, less tension Manual Traction LS manual traction Body Position Hooklying Reps/Duration use of strap behind calves Comments gentle manual traction Neuro Re-Education Treatment Balance Activities hurdles Details F/B/S Surface firm Equipment 3 hurdles in mirror Reps/Duration 3 laps each direction Comments cued increase RENA stepping with awareness posturing and core/hip abd fac to decrease trunk side bend wt shifting, best 3rd lap. PT-OP-R Modalities Start: 01/09/22 17:31 Freq: Status: Active Protocol: Document 02/03/22 13:49 [facility] (Rec: 02/03/22 14:43 [facility] [id number]) Hot Pack/Cold Pack Treatment Cold Pack Location LB Patient Position Prone Treatment Duration (minutes) 10 PT-OP-T Assessment and Plan Start: 01/09/22 17:31 Freq: Status: Active Protocol: Document 02/26/22 08:21 SP (Rec: 02/26/22 09:06 SP [id number]) Physical Therapy Assessment Goals standing Craps Manager Goal (LTG) Pt will be able to stand as needed for work and at home w/ o inc pain greater than 2/10 02/20/22 (progressing 4/10 after 20 minutes of work, use of seated rest and ice diminishes symptoms). LTG Duration 03/15 (progressing 02/20/22) stairs Short Term Goal (STG) Pt will be able to safely ascend stairs w/o rail reciprocally. 8 goal MET STG Duration 02/12/22 GOAL MET 02/20/22 Fdc Goal (LTG) Pt will be able to safely descend stairs w/o rail reciprocally. 02/20 goal MET LTG Duration 03/15/22 GOAL MET 02/20/22 balance Fdc Goal (LTG) Pt will be able to do SLS 20 sec B w/o lat shear of hip 02/20/22: progressing: RLE 5s, 3s, 7s; LLE 12 s, 10s, 5s LTG Duration 03/15/22 progressing strength Short Term Goal (STG) Pt will be indep w/HEP STG Duration 02/12/22 Craps Manager Goal (LTG) Pt will score at least 3/5 on LPM in all planes and improve LE MMT to at least 4+/5 B to improve pt's gait and ability to lift and stand as needed LTG Duration 03/15/22 ZHANNA Impairment 13/50 Short Term Goal (STG) Pt will improve score to at least 8/50 to show improvement in functional ability. STG Duration 02/12/22 Fdc Goal (LTG) Pt will improve score to at least 3/50 to show improvement in functional ability. LTG Duration 03/15/22 Assessment Summary Assessment Pt good response to manual, core with no LBP end tx. Ed and cuing for tall posturing over stance LE to improve core and hip abd fac for normalizing gait and body positioning, improved post band walk. Initiated band walks with mirror/ reflection in mirror for self feedback. Physical Therapy Plan Frequency and Duration Frequency of Treatment 2x/Week Duration of Treatment 2 months Plan of Care Start Date 01/13/22 Plan of Care End Date 03/15/22 Therapeutic Interventions Therapeutic Interventions Aquatic Therapy,Balance Training,Gait Training,Home Exercise Program,Joint Mobilizations,Manual Therapy, Neuromuscular Re-education, Patient/Caregiver Education, Self-Care/Home Management,Soft Tissue Mobilization,Taping, Therapeutic Activities, Therapeutic Exercises Modalities Cold Pack/Ice Massage,Electric Stimulation,Hot Packs Next Visit Focus/Plan Next Note Type Progress Note Next Visit Plan 06/28 visits next tx, PN recommended. Recheck and walk, progress functional strengthening in standing. Continue per POC: Continue core stability progression, manual to lumbar and hips
--- NOTE | 2022-03-04 17:46 | PT.OTN ---
Current Diagnoses Pain in unspecified hip (03/04/22) Low back pain, unspecified (03/04/22) Difficulty in walking, not elsewhere classified (03/04/22) Unspecified abnormalities of gait and mobility (03/04/22) Abnormal posture (03/04/22) Weakness (03/04/22) Physical Therapy Treatment Note PT-OP-A Visit Information Start: 01/09/22 17:31 Freq: Status: Active Protocol: Document 03/04/22 15:21 [facility] (Rec: 03/04/22 17:46 [facility] [id number]) Out-Patient Physical Therapy Visit Information Visit Information Visit Type Progress Note Visit Note 07/29 Visit Start Time 15:21 Visit Stop Time 16:00 Total Visit Minutes 39 Visit Number 12 Number of WIRE COMMUNICATIONS ENGINEER Visits 0 PT-OP-B Current Condition Start: 01/09/22 17:31 Freq: Status: Active Protocol: Document 01/13/22 14:35 [facility] (Rec: 01/13/22 15:28 [facility] [id number]) Current Condition History of Current Condition Onset Date worsening over past couple years Current Complaints LBP History of Current Condition Pt reprots back surgery L3-5 for fusion in 2014 and did do some PT after that. She had PT for that and since then has had to be careful re: lifting. She also has scoliosis. Pt reports the past 2 years, she feels like her back is bending fwd w/walking and when she sits and reads she bends fwd. She feels like she walks w/ like a rolling motion and L heel scrapes the ground. 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 Pt reports even standing even a couple min is painful to back. Pt does show her dog and she has trouble lifting him to the table if she has to do it too many times (dog 36 lb). Pt had hip dysplagia as baby and wore braces laying down. 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 She had pain thast was getting worse and worse which is what led to surgery. No specific injury. Reports LBP from [employer] and on. Pt still does do some of her pool exercises from last time and goes for a mile walk a day (is harder if done at end of day. Prior Treatments and Tests PT after surgery that was helpful; been to chiro (says back is twisted & he gets things straightens it out and it helps for 2 weeks)-goes 1x/ month at most up to every couple months Treatment Goals Patient/Caregiver Goals Improve strength of hips and improve gait pattern, determine if she needs to go see surgeon again, be abl eto go up/down stairs w/o rail use , dec back pain PT-OP-C Subjective Start: 01/09/22 17:31 Freq: Status: Active Protocol: Document 03/04/22 15:21 [facility] (Rec: 03/04/22 [facility]46 [id number]-PT Subjective Patient Comments Patient Comments Pt reports she still hurts if she stands more than 20 min she gets pain. She did do a weekend of dog show and felt okay Patient Reported Progress Improving Patient Questionnaires Oswestry Low Back Index Oswestry Score 7/50 PT-OP-D Balance Start: 01/09/22 17:31 Freq: Status: Active Protocol: Document 01/13/22 14:35 [facility] (Rec: 01/13/22 15:28 [id number] Balance Tests Single Limb Standing Single Limb- Right 6 sec w/lat shear Single Limb- Left 25 sec w/lat shear PT-OP-F Manual Assessment Start: 01/09/22 17:31 Freq: Status: Active Protocol: Document 01/13/22 14:35 [facility] (Rec: 01/13/22 15:28 [facility] [id number]) Manual Assessments Soft Tissue Assessment Soft Tissue Mobility Assessment tightness and tenderness: R>L ES, scar, QL, glutes, piriformis Joint Mobility Assessment Joint Mobility Assessment Iliac crest R higher than L; equal greater trochanters PT-OP-G Mobility & Gait Start: 01/09/22 17:31 Freq: Status: Active Protocol: Document 01/13/22 14:35 [facility] (Rec: 01/13/22 15:28 [facility] [id number]) OP Gait Assessment Comments Gait Comments lat lean over LLE and slower gait, dec push off PT-OP-J Posture/Palpation/Skin Start: 01/09/22 17:31 Freq: Status: Active Protocol: Document 03/04/22 15:21 [facility] (Rec: 03/04/22 17:46 [facility] [id number]) Posture Evaluation Zayra Postural Classification System Lumbar Protective Mechanism Left AP 2 Lumbar Protective Mechanism Right AP 2 Lumbar Protective Mechanism Left PA 1 Lumbar Protective Mechanism Right PA 3 PT-OP-K Range of Motion Start: 01/09/22 17:31 Freq: Status: Active Protocol: Document 01/13/22 14:35 [facility] (Rec: 01/13/22 15:28 [facility] [id number]) Lumbar Spine Range of Motion Lumbar Spine Active Extension 60 Rotation Left 33 Rotation Right 50 Lateral Flexion Left 50 Lateral Flexion Right 30 Comments flex w/PT guarding hips to sup patella; to ground; all motion at TL junction w/ext; pain B w/B SB; rot in deg; pain w/left rot PT-OP-L Special Tests Start: 01/09/22 17:31 Freq: Status: Active Protocol: Document 01/13/22 14:35 [facility] (Rec: 01/13/22 15:28 [facility] [id number]) Special Tests Lumbar Spine Special Tests Slump Test Results neg Straight Leg Raise Test Results R 58 deg w/back pain-dec if PF ,L 54 deg w/back pain- dec if PF PT-OP-M Strength Start: 01/09/22 17:31 Freq: Status: Active Protocol: Document 03/04/22 15:21 [facility] (Rec: 03/04/22 17:46 [facility] [id number]) Hip Strength Hip Manual Muscle Testing Right Flexion (L2) 4- Good- Extension (S1) 4- Good- Abduction 3+ Fair+ Adduction 5 Normal External Rotation 4+ Good+ Internal Rotation 4+ Good+ Left Flexion (L2) 4 Good Extension (S1) 4- Good- Abduction 3 Fair Adduction 5 Normal External Rotation 4 Good Internal Rotation 4+ Good+ Comments pain abd lat hip Knee Strength Knee Manual Muscle Testing Right Flexion (S2) 5 Normal Extension (L3) 5 Normal Left Flexion (S2) 5 Normal Extension (L3) 5 Normal Ankle/Foot Strength Ankle and Foot Manual Muscle Testing Right Dorsiflexion (L4) 5 Normal Plantarflexion (S1) 5 Normal Comments PF tested seated Left Dorsiflexion (L4) 5 Normal Plantarflexion (S1) 5 Normal Comments PF tested seate PT-OP-Q Treatments Start: 01/09/22 17:31 Freq: Status: Active Protocol: Document 03/04/22 15:21 [facility] (Rec: 03/04/22 17:46 [facility] [id number]) Gym Equipment Shuttle Balance red clips Comments fwd & side: WBOS, NBOS unilateral squat Details 37# Reps/Duration 15 Comments cued occasional cues for knee alignment with midfoot bilateral squat Details 75# w/ lvl 1 around knees Reps/Duration 20 Comments cued hip abd fac during con/ ecc directioning. Therapeutic Exercises Sidelying Exercises hip abd Side bilateral Reps/Minutes 10 Standing Exercises band walk Standing Exercise Name fwd/back Resistance TB #1 loop Equipment Used at rail Reps/Minutes 10ft Comments cued posturing, trailing LE clearance paloff press Standing Exercise Name review HEP Resistance lvl 1 2 bands Reps/Minutes 5 ea sidesteps Standing Exercise Name review HEP: cued no lat lean Side bilateral Resistance lvl 1 at ankles Reps/Minutes 20ft ea Comments cues core, knee alignment, level shldrs for core fac, foot clearance Neuro Re-Education Treatment Balance Activities SLS Details trials B in mirror PT-OP-R Modalities Start: 01/09/22 17:31 Freq: Status: Active Protocol: Document 02/03/22 13:49 [facility] (Rec: 02/03/22 14:43 [facility] [id number]) Hot Pack/Cold Pack Treatment Cold Pack Location LB Patient Position Prone Treatment Duration (minutes) 10 PT-OP-T Assessment and Plan Start: 01/09/22 17:31 Freq: Status: Active Protocol: Document 03/04/22 15:21 [facility] (Rec: 03/04/22 17:46 [facility] [id number]) Physical Therapy Assessment Goals standing Detention Goal (LTG) Pt will be able to stand as needed for work and at home w/ o inc pain greater than 2/10 02/20/22 (progressing 4/10 after 20 minutes of work, use of seated rest and ice diminishes symptoms). LTG Duration 05/04 stairs Short Term Goal (STG) Pt will be able to safely ascend stairs w/o rail reciprocally. 8 goal MET STG Duration 02/12/22 GOAL MET 02/20/22 Thermograph Operator Goal (LTG) Pt will be able to safely descend stairs w/o rail reciprocally. 8/4 goal MET LTG Duration 03/15/22 GOAL MET 02/20/22 balance Thermograph Operator Goal (LTG) Pt will be able to do SLS 20 sec B w/o lat shear of hip 02/20/22: progressing: RLE 5s, 3s, 7s; LLE 12 s, 10s, 5s 03/04-RLE 13 sec LLE 7 sec LTG Duration 05/04 strength Short Term Goal (STG) Pt will be indep w/HEP STG Duration achieved advancing as needed Detention Goal (LTG) Pt will score at least 3/5 on LPM in all planes and improve LE MMT to at least 4+/5 B to improve pt's gait and ability to lift and stand as needed 03/04-improved LTG Duration 05/04 ZHANNA Impairment 13/50 Short Term Goal (STG) Pt will improve score to at least 8/50 to show improvement in functional ability. STG Duration achievd to 7 Detention Goal (LTG) Pt will improve score to at least 3/50 to show improvement in functional ability. LTG Duration 05/04 Assessment Summary Assessment Pt is making good progress towards goals at this time w/ good imrpovements in strength, balance and fucntional ability, but is still limited by standing. She still has pain w/standing in one place too long so has avoided that for any length of time. Cont PT for hip, and core stabiltiy along w/working on balance to dec back pain an dimprvoe standing tolerance. Physical Therapy Plan Frequency and Duration Frequency of Treatment 2x/Week Duration of Treatment 2 months Plan of Care Start Date 03/04/22 Plan of Care End Date 05/04/22 Therapeutic Interventions Therapeutic Interventions Aquatic Therapy,Balance Training,Gait Training,Home Exercise Program,Joint Mobilizations,Manual Therapy, Neuromuscular Re-education, Patient/Caregiver Education, Self-Care/Home Management,Soft Tissue Mobilization,Taping, Therapeutic Activities, Therapeutic Exercises Modalities Cold Pack/Ice Massage,Electric Stimulation,Hot Packs Next Visit Focus/Plan Next Note Type Treatment Note Next Visit Plan progress functional strengthening in standing. Continue per POC: Continue core stability progression, manual to lumbar and hips
--- NOTE | 2022-03-04 17:47 | PT.OPPOC ---
Physical, Occupational & Speech Therapy At [facility] Current Diagnoses Pain in unspecified hip (03/04/22) Low back pain, unspecified (03/04/22) Difficulty in walking, not elsewhere classified (03/04/22) Unspecified abnormalities of gait and mobility (03/04/22) Abnormal posture (03/04/22) Weakness (03/04/22) Visit Care Team Role Provider Type Ray Gordon MD Attending Provider Physician Family Provider Primary Care Provider Referring Provider Specialty: Internal Medicine Address: [address] [place] [address], [address], [address] Email: [email or web address] Plan Of Care PT-OP-T Assessment and Plan Start: 01/09/22 17:31 Freq: Status: Active Protocol: Document 03/04/22 15:21 [facility] (Rec: 03/04/22 17:46 [facility] [id number]) Physical Therapy Assessment Goals standing Longterm Goal (LTG) Pt will be able to stand as needed for work and at home w/ o inc pain greater than 2/10 02/20/22 (progressing 4/10 after 20 minutes of work, use of seated rest and ice diminishes symptoms). LTG Duration 05/04 stairs Short Term Goal (STG) Pt will be able to safely ascend stairs w/o rail reciprocally. 02/20 goal MET STG Duration 02/12/22 GOAL MET 02/20/22 Longterm Goal (LTG) Pt will be able to safely descend stairs w/o rail reciprocally. 02/20 goal MET LTG Duration 03/15/22 GOAL MET 02/20/22 balance Handle Finisher Goal (LTG) Pt will be able to do SLS 20 sec B w/o lat shear of hip 02/20/22: progressing: RLE 5s, 3s, 7s; LLE 12 s, 10s, 5s 03/04-RLE 13 sec LLE 7 sec LTG Duration 05/04 strength Short Term Goal (STG) Pt will be indep w/HEP STG Duration achieved advancing as needed Longterm Goal (LTG) Pt will score at least 3/5 on LPM in all planes and improve LE MMT to at least 4+/5 B to improve pt's gait and ability to lift and stand as needed 03/04-improved LTG Duration 05/04 ZHANNA Impairment 13/50 Short Term Goal (STG) Pt will improve score to at least 8/50 to show improvement in functional ability. STG Duration achievd to 7/50 Handle Finisher Goal (LTG) Pt will improve score to at least 3/50 to show improvement in functional ability. LTG Duration 05/04 Assessment Summary Assessment Pt is making good progress towards goals at this time w/ good imrpovements in strength, balance and fucntional ability, but is still limited by standing. She still has pain w/standing in one place too long so has avoided that for any length of time. Cont PT for hip, and core stabiltiy along w/working on balance to dec back pain an dimprvoe standing tolerance. Physical Therapy Plan Frequency and Duration Frequency of Treatment 2x/Week Duration of Treatment 2 months Plan of Care Start Date 03/04/22 Plan of Care End Date 05/04/22 Therapeutic Interventions Therapeutic Interventions Aquatic Therapy,Balance Training,Gait Training,Home Exercise Program,Joint Mobilizations,Manual Therapy, Neuromuscular Re-education, Patient/Caregiver Education, Self-Care/Home Management,Soft Tissue Mobilization,Taping, Therapeutic Activities, Therapeutic Exercises Modalities Cold Pack/Ice Massage,Electric Stimulation,Hot Packs Next Visit Focus/Plan Next Note Type Treatment Note Next Visit Plan progress functional strengthening in standing. Continue per POC: Continue core stability progression, manual to lumbar and hips Plan of Care Dates Plan of Care Start Date 03/04/22 Plan of Care End Date 05/04/22 Electronically Signed by: Lisa Benjamin, PT 03/04/22 6018 If you are in agreement with this Plan of Care, please return a signed and dated copy. I have reviewed this Plan of Care and certify that the skilled therapy services above are required to meet the patient?s needs. Physician Signature Date Printed Name and Credentials Clinical Instructor Signature Printed Name and Credentials
--- NOTE | 2022-03-06 09:00 | PT.OTN ---
Current Diagnoses Pain in unspecified hip (03/06/22) Low back pain, unspecified (03/06/22) Difficulty in walking, not elsewhere classified (03/06/22) Unspecified abnormalities of gait and mobility (03/06/22) Abnormal posture (03/06/22) Weakness (03/06/22) Physical Therapy Treatment Note PT-OP-A Visit Information Start: 01/09/22 17:31 Freq: Status: Active Protocol: Document 03/06/22 08:18 [facility] (Rec: 03/06/22 09:02 SP [id number]) Out-Patient Physical Therapy Visit Information Visit Information Visit Type Treatment Note Visit Note 08/29 Visit Start Time 08:18 Visit Stop Time 09:00 Total Visit Minutes 42 Visit Number 13 Number of BASEBALL SCOUT Visits 1 PT-OP-B Current Condition Start: 01/09/22 17:31 Freq: Status: Active Protocol: Document 01/13/22 14:35 [facility] (Rec: 01/13/22 15:28 [facility] [id number]) Current Condition History of Current Condition Onset Date worsening over past couple years Current Complaints LBP History of Current Condition Pt reprots back surgery L3-5 for fusion in 2014 and did do some PT after that. She had PT for that and since then has had to be careful re: lifting. She also has scoliosis. Pt reports the past 2 years, she feels like her back is bending fwd w/walking and when she sits and reads she bends fwd. She feels like she walks w/ like a rolling motion and L heel scrapes the ground. 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 Pt reports even standing even a couple min is painful to back. Pt does show her dog and she has trouble lifting him to the table if she has to do it too many times (dog 36 lb). Pt had hip dysplagia as baby and wore braces laying down. 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 She had pain thast was getting worse and worse which is what led to surgery. No specific injury. Reports LBP from [employer] and on. Pt still does do some of her pool exercises from last time and goes for a mile walk a day (is harder if done at end of day. Prior Treatments and Tests PT after surgery that was helpful; been to chiro (says back is twisted & he gets things straightens it out and it helps for 2 weeks)-goes 1x/ month at most up to every couple months Treatment Goals Patient/Caregiver Goals Improve strength of hips and improve gait pattern, determine if she needs to go see surgeon again, be abl eto go up/down stairs w/o rail use , dec back pain PT-OP-C Subjective Start: 01/09/22 17:31 Freq: Status: Active Protocol: Document 03/06/22 08:18 [facility] (Rec: 03/06/22 09:02 SP [id number]) OP-PT Subjective Patient Comments Patient Comments Pt reports got a new exercise onside and not sure doing right, didn't get a hand out, wants to review. She stated felt little rubbery after last tx. Patient Reported Progress Improving PT-OP-D Balance Start: 01/09/22 17:31 Freq: Status: Active Protocol: Document 01/13/22 14:35 [facility] (Rec: 01/13/22 15:28 [facility] [id number]) Balance Tests Single Limb Standing Single Limb- Right 6 sec w/lat shear Single Limb- Left 25 sec w/lat shear PT-OP-F Manual Assessment Start: 01/09/22 17:31 Freq: Status: Active Protocol: Document 01/13/22 14:35 [facility] (Rec: 01/13/22 15:28 [facility] [id number]) Manual Assessments Soft Tissue Assessment Soft Tissue Mobility Assessment tightness and tenderness: R>L ES, scar, QL, glutes, piriformis Joint Mobility Assessment Joint Mobility Assessment Iliac crest R higher than L; equal greater trochanters PT-OP-G Mobility & Gait Start: 01/09/22 17:31 Freq: Status: Active Protocol: Document 01/13/22 14:35 [facility] (Rec: 01/13/22 15:28 [facility] [id number]) OP Gait Assessment Comments Gait Comments lat lean over LLE and slower gait, dec push off PT-OP-J Posture/Palpation/Skin Start: 01/09/22 17:31 Freq: Status: Active Protocol: Document 03/04/22 15:21 [facility] (Rec: 03/04/22 17:46 [facility] [id number]) Posture Evaluation Zayra Postural Classification System Lumbar Protective Mechanism Left AP 2 Lumbar Protective Mechanism Right AP 2 Lumbar Protective Mechanism Left PA 1 Lumbar Protective Mechanism Right PA 3 PT-OP-K Range of Motion Start: 01/09/22 17:31 Freq: Status: Active Protocol: Document 01/13/22 14:35 [facility] (Rec: 01/13/22 15:28 [facility] [id number]) Lumbar Spine Range of Motion Lumbar Spine Active Extension 60 Rotation Left 33 Rotation Right 50 Lateral Flexion Left 50 Lateral Flexion Right 30 Comments flex w/PT guarding hips to sup patella; to ground; all motion at TL junction w/ext; pain B w/B SB; rot in deg; pain w/left rot PT-OP-L Special Tests Start: 01/09/22 17:31 Freq: Status: Active Protocol: Document 01/13/22 14:35 [facility] (Rec: 01/13/22 15:28 [facility] [id number]) Special Tests Lumbar Spine Special Tests Slump Test Results neg Straight Leg Raise Test Results R 58 deg w/back pain-dec if PF ,L 54 deg w/back pain- dec if PF PT-OP-M Strength Start: 01/09/22 17:31 Freq: Status: Active Protocol: Document 03/04/22 15:21 [facility] (Rec: 03/04/22 17:46 [facility] [id number]) Hip Strength Hip Manual Muscle Testing Right Flexion (L2) 4- Good- Extension (S1) 4- Good- Abduction 3+ Fair+ Adduction 5 Normal External Rotation 4+ Good+ Internal Rotation 4+ Good+ Left Flexion (L2) 4 Good Extension (S1) 4- Good- Abduction 3 Fair Adduction 5 Normal External Rotation 4 Good Internal Rotation 4+ Good+ Comments pain abd lat hip Knee Strength Knee Manual Muscle Testing Right Flexion (S2) 5 Normal Extension (L3) 5 Normal Left Flexion (S2) 5 Normal Extension (L3) 5 Normal Ankle/Foot Strength Ankle and Foot Manual Muscle Testing Right Dorsiflexion (L4) 5 Normal Plantarflexion (S1) 5 Normal Comments PF tested seated Left Dorsiflexion (L4) 5 Normal Plantarflexion (S1) 5 Normal Comments PF tested seate PT-OP-Q Treatments Start: 01/09/22 17:31 Freq: Status: Active Protocol: Document 03/06/22 08:18 [facility] (Rec: 03/06/22 09:02 SP [id number]) Gym Equipment Shuttle Balance red clips Details WBOS, NBOS Comments 1. F/B/S wt shift 2. stationary HTs *CG- 10%A unilateral squat Details 37#> 50# Reps/Duration 2x10 Comments occasional cues for knee alignment with midfoot see insole bilateral squat Details 75#>87# w/ lvl 1 around knees Reps/Duration 20 Comments Good hip abd fac during con/ ecc directioning. Therapeutic Exercises Sidelying Exercises hip abd Sidelying Exercise Name HEP reviewed Side bilateral Reps/Minutes 4x5 reps each LE Comments continuous tactile/ verbal cues for stacked alignement, lift hip abd fac Standing Exercises band walk Standing Exercise Name fwd/back Resistance TB #1 loop Equipment Used at rail Reps/Minutes 10ft Comments cued posturing, trailing LE clearance sidesteps Standing Exercise Name review HEP: lateral steps Side bilateral Resistance lvl 1 at ankles Reps/Minutes 20ft ea Comments cued posturing, hip abd fac, trailing LE clearance PT-OP-R Modalities Start: 01/09/22 17:31 Freq: Status: Active Protocol: Document 02/03/22 13:49 [facility] (Rec: 02/03/22 14:43 [facility] [id number]) Hot Pack/Cold Pack Treatment Cold Pack Location LB Patient Position Prone Treatment Duration (minutes) 10 PT-OP-T Assessment and Plan Start: 01/09/22 17:31 Freq: Status: Active Protocol: Document 03/06/22 08:18 [facility] (Rec: 03/06/22 09:02 SP [id number]) Physical Therapy Assessment Goals standing Gang Sawyer Goal (LTG) Pt will be able to stand as needed for work and at home w/ o inc pain greater than 2/10 02/20/22 (progressing 4/10 after 20 minutes of work, use of seated rest and ice diminishes symptoms). LTG Duration 05/04 stairs Short Term Goal (STG) Pt will be able to safely ascend stairs w/o rail reciprocally. 8 goal MET STG Duration 02/12/22 GOAL MET 02/20/22 Shelter Goal (LTG) Pt will be able to safely descend stairs w/o rail reciprocally. 84 goal MET LTG Duration 03/15/22 GOAL MET 02/20/22 balance Shelter Goal (LTG) Pt will be able to do SLS 20 sec B w/o lat shear of hip 02/20/22: progressing: RLE 5s, 3s, 7s; LLE 12 s, 10s, 5s 03/04-RLE 13 sec LLE 7 sec LTG Duration 05/04 strength Short Term Goal (STG) Pt will be indep w/HEP STG Duration achieved advancing as needed Shelter Goal (LTG) Pt will score at least 3/5 on LPM in all planes and improve LE MMT to at least 4+/5 B to improve pt's gait and ability to lift and stand as needed 03/04-improved LTG Duration 05/04 ZHANNA Impairment 13/50 Short Term Goal (STG) Pt will improve score to at least 8/50 to show improvement in functional ability. STG Duration achievd to 750 Gang Sawyer Goal (LTG) Pt will improve score to at least 3/50 to show improvement in functional ability. LTG Duration 05/04 Assessment Summary Assessment Pt improved feeling hip abd fac with HEP review on side better self corrections, provided HOs. Pt improved alignment trunk, hip abd recruitment for foot clearance resisted stepping. Physical Therapy Plan Frequency and Duration Frequency of Treatment 2x/Week Duration of Treatment 2 months Plan of Care Start Date 03/04/22 Plan of Care End Date 05/04/22 Therapeutic Interventions Therapeutic Interventions Aquatic Therapy,Balance Training,Gait Training,Home Exercise Program,Joint Mobilizations,Manual Therapy, Neuromuscular Re-education, Patient/Caregiver Education, Self-Care/Home Management,Soft Tissue Mobilization,Taping, Therapeutic Activities, Therapeutic Exercises Modalities Cold Pack/Ice Massage,Electric Stimulation,Hot Packs Next Visit Focus/Plan Next Note Type Treatment Note Next Visit Plan progress functional strengthening in standing. Continue per POC: Continue core stability progression, manual to lumbar and hips
--- NOTE | 2022-03-13 09:00 | PT.OTN ---
Current Diagnoses Pain in unspecified hip (03/13/22) Low back pain, unspecified (03/13/22) Difficulty in walking, not elsewhere classified (03/13/22) Unspecified abnormalities of gait and mobility (03/13/22) Abnormal posture (03/13/22) Weakness (03/13/22) Physical Therapy Treatment Note PT-OP-A Visit Information Start: 01/09/22 17:31 Freq: Status: Active Protocol: Document 03/13/22 08:17 SP (Rec: 03/13/22 09:03 SP [id number]) Out-Patient Physical Therapy Visit Information Visit Information Visit Type Treatment Note Visit Note 09/26 Visit Start Time 08:17 Visit Stop Time 09:00 Total Visit Minutes 43 Visit Number 14 Number of PROFESSOR OF LEGAL STUDIES Visits 2 PT-OP-B Current Condition Start: 01/09/22 17:31 Freq: Status: Active Protocol: Document 01/13/22 14:35 [facility] (Rec: 01/13/22 15:28 [facility] [id number]) Current Condition History of Current Condition Onset Date worsening over past couple years Current Complaints LBP History of Current Condition Pt reprots back surgery L3-5 for fusion in 2014 and did do some PT after that. She had PT for that and since then has had to be careful re: lifting. She also has scoliosis. Pt reports the past 2 years, she feels like her back is bending fwd w/walking and when she sits and reads she bends fwd. She feels like she walks w/ like a rolling motion and L heel scrapes the ground. 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 Pt reports even standing even a couple min is painful to back. Pt does show her dog and she has trouble lifting him to the table if she has to do it too many times (dog 36 lb). Pt had hip dysplagia as baby and wore braces laying down. 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 She had pain thast was getting worse and worse which is what led to surgery. No specific injury. Reports LBP from [employer] and on. Pt still does do some of her pool exercises from last time and goes for a mile walk a day (is harder if done at end of day. Prior Treatments and Tests PT after surgery that was helpful; been to chiro (says back is twisted & he gets things straightens it out and it helps for 2 weeks)-goes 1x/ month at most up to every couple months Treatment Goals Patient/Caregiver Goals Improve strength of hips and improve gait pattern, determine if she needs to go see surgeon again, be abl eto go up/down stairs w/o rail use , dec back pain PT-OP-C Subjective Start: 01/09/22 17:31 Freq: Status: Active Protocol: Document 03/13/22 08:17 SP (Rec: 03/13/22 09:03 SP [id number]) OP-PT Subjective Patient Comments Patient Comments Pt reports stated LBP with car ride yesterday and when got back to [facility] stopped at [facility] and unsure will manage curb. PT-OP-D Balance Start: 01/09/22 17:31 Freq: Status: Active Protocol: Document 01/13/22 14:35 [facility] (Rec: 01/13/22 15:28 [facility] [id number]) Balance Tests Single Limb Standing Single Limb- Right 6 sec w/lat shear Single Limb- Left 25 sec w/lat shear PT-OP-F Manual Assessment Start: 01/09/22 17:31 Freq: Status: Active Protocol: Document 01/13/22 14:35 [facility] (Rec: 01/13/22 15:28 [facility] [id number]) Manual Assessments Soft Tissue Assessment Soft Tissue Mobility Assessment tightness and tenderness: R>L ES, scar, QL, glutes, piriformis Joint Mobility Assessment Joint Mobility Assessment Iliac crest R higher than L; equal greater trochanters PT-OP-G Mobility & Gait Start: 01/09/22 17:31 Freq: Status: Active Protocol: Document 01/13/22 14:35 [facility] (Rec: 01/13/22 15:28 [facility] [id number]) OP Gait Assessment Comments Gait Comments lat lean over LLE and slower gait, dec push off PT-OP-J Posture/Palpation/Skin Start: 01/09/22 17:31 Freq: Status: Active Protocol: Document 03/04/22 15:21 [facility] (Rec: 03/04/22 17:46 [facility] [id number]) Posture Evaluation [facility] Postural Classification System Lumbar Protective Mechanism Left AP 2 Lumbar Protective Mechanism Right AP 2 Lumbar Protective Mechanism Left PA 1 Lumbar Protective Mechanism Right PA 3 PT-OP-K Range of Motion Start: 01/09/22 17:31 Freq: Status: Active Protocol: Document 01/13/22 14:35 [facility] (Rec: 01/13/22 15:28 [facility] [id number]) Lumbar Spine Range of Motion Lumbar Spine Active Extension 60 Rotation Left 33 Rotation Right 50 Lateral Flexion Left 50 Lateral Flexion Right 30 Comments flex w/PT guarding hips to sup patella; to ground; all motion at TL junction w/ext; pain B w/B SB; rot in deg; pain w/left rot PT-OP-L Special Tests Start: 01/09/22 17:31 Freq: Status: Active Protocol: Document 01/13/22 14:35 [facility] (Rec: 01/13/22 15:28 [facility] [id number]) Special Tests Lumbar Spine Special Tests Slump Test Results neg Straight Leg Raise Test Results R 58 deg w/back pain-dec if PF ,L 54 deg w/back pain- dec if PF PT-OP-M Strength Start: 01/09/22 17:31 Freq: Status: Active Protocol: Document 03/04/22 15:21 [facility] (Rec: 03/04/22 17:46 [facility] [id number]) Hip Strength Hip Manual Muscle Testing Right Flexion (L2) 4- Good- Extension (S1) 4- Good- Abduction 3+ Fair+ Adduction 5 Normal External Rotation 4+ Good+ Internal Rotation 4+ Good+ Left Flexion (L2) 4 Good Extension (S1) 4- Good- Abduction 3 Fair Adduction 5 Normal External Rotation 4 Good Internal Rotation 4+ Good+ Comments pain abd lat hip Knee Strength Knee Manual Muscle Testing Right Flexion (S2) 5 Normal Extension (L3) 5 Normal Left Flexion (S2) 5 Normal Extension (L3) 5 Normal Ankle/Foot Strength Ankle and Foot Manual Muscle Testing Right Dorsiflexion (L4) 5 Normal Plantarflexion (S1) 5 Normal Comments PF tested seated Left Dorsiflexion (L4) 5 Normal Plantarflexion (S1) 5 Normal Comments PF tested seate PT-OP-Q Treatments Start: 01/09/22 17:31 Freq: Status: Active Protocol: Document 03/13/22 08:17 SP (Rec: 03/13/22 09:03 SP [id number]) Therapeutic Exercises Supine Exercises core Supine Exercise Name 1. dying bug Side bilateral Equipment Used yoga mat Reps/Minutes 2x10 Comments TAbd engagement improved coordination LTR Supine Exercise Name comfortable range Side bilateral Resistance stretch Reps/Minutes 60 Comments good feedback stretch stretch Supine Exercise Name piriformis, DKTC Side bilateral Reps/Minutes 30 sec Comments cued perform during stops car rides Sitting Exercises stretching Sitting Exercise Name trunk flexion and QL Side bilateral Reps/Minutes 1 min ea Comments performs mostly at dog show, ed for during stops car rides. Standing Exercises band walk Standing Exercise Name fwd/back Resistance TB #1 loop Equipment Used at rail Reps/Minutes x3 laps Comments cued posturing, trailing LE clearance Manual Therapy Treatment Soft Tissue Mobilization hips Body Location glutes max/ med & piriformis R >L Mobilization Type Strumming,Sustained Pressure Intensity/Depth Moderate Body Position Prone Comments manual states discomfort/ stiffness with manual, lessens tension though lumbar Body Location R=L ES, QL, B around SI Mobilization Type Myofascial Release,Strumming, Sustained Pressure,Trigger Point Release Intensity/Depth Moderate Body Position Prone Comments manual states discomfort/ stiffness, lessens tension though Manual Traction LS manual traction Body Position Hooklying Reps/Duration use of strap behind calves- no improve response Comments improved response long axis pull Self-Care/Home Management Treatment Education Patient Education Body Mechanics,Joint Protection,Pain Management, Posture Other Education Discussed with stretching at stops car ride for flexibility and back comfort mobility, provided HO for warm up visual. Towel roll behind LB during car rides for neutral pelvis may need more than what vehicle has, agrees needs more support. PT-OP-R Modalities Start: 01/09/22 17:31 Freq: Status: Active Protocol: Document 02/03/22 13:49 [facility] (Rec: 02/03/22 14:43 [facility] [id number]) Hot Pack/Cold Pack Treatment Cold Pack Location LB Patient Position Prone Treatment Duration (minutes) 10 PT-OP-T Assessment and Plan Start: 01/09/22 17:31 Freq: Status: Active Protocol: Document 03/13/22 08:17 SP (Rec: 03/13/22 09:03 SP [id number]) Physical Therapy Assessment Goals standing Skilled Nursing Goal (LTG) Pt will be able to stand as needed for work and at home w/ o inc pain greater than 2/10 02/20/22 (progressing 4/10 after 20 minutes of work, use of seated rest and ice diminishes symptoms). LTG Duration 05/04 stairs Short Term Goal (STG) Pt will be able to safely ascend stairs w/o rail reciprocally. 02/20 goal MET STG Duration 02/12/22 GOAL MET 02/20/22 Skilled Nursing Goal (LTG) Pt will be able to safely descend stairs w/o rail reciprocally. 02/20 goal MET LTG Duration 03/15/22 GOAL MET 02/20/22 balance Skilled Nursing Goal (LTG) Pt will be able to do SLS 20 sec B w/o lat shear of hip 02/20/22: progressing: RLE 5s, 3s, 7s; LLE 12 s, 10s, 5s 03/04-RLE 13 sec LLE 7 sec LTG Duration 05/04 strength Short Term Goal (STG) Pt will be indep w/HEP STG Duration achieved advancing as needed Foiling Machine Operator Goal (LTG) Pt will score at least 3/5 on LPM in all planes and improve LE MMT to at least 4+/5 B to improve pt's gait and ability to lift and stand as needed 03/04-improved LTG Duration 05/04 ZHANNA Impairment 13/50 Short Term Goal (STG) Pt will improve score to at least 8/50 to show improvement in functional ability. STG Duration achievd to 7/50 Foiling Machine Operator Goal (LTG) Pt will improve score to at least 3/50 to show improvement in functional ability. LTG Duration 05/04 Assessment Summary Assessment Pt good feedback response to manual and stretching w/ ed perform between car rides distances for back/ hip flexibility comfort with good response in PT today. Feels better, good for now Physical Therapy Plan Frequency and Duration Frequency of Treatment 2x/Week Duration of Treatment 2 months Plan of Care Start Date 03/04/22 Plan of Care End Date 05/04/22 Therapeutic Interventions Therapeutic Interventions Aquatic Therapy,Balance Training,Gait Training,Home Exercise Program,Joint Mobilizations,Manual Therapy, Neuromuscular Re-education, Patient/Caregiver Education, Self-Care/Home Management,Soft Tissue Mobilization,Taping, Therapeutic Activities, Therapeutic Exercises Modalities Cold Pack/Ice Massage,Electric Stimulation,Hot Packs Next Visit Focus/Plan Next Note Type Treatment Note Next Visit Plan progress functional strengthening in standing. Continue per POC: Continue core stability progression, manual to lumbar and hips
--- NOTE | 2022-03-18 13:47 | PT.OTN ---
Current Diagnoses Pain in unspecified hip (03/18/22) Low back pain, unspecified (03/18/22) Difficulty in walking, not elsewhere classified (03/18/22) Unspecified abnormalities of gait and mobility (03/18/22) Abnormal posture (03/18/22) Weakness (03/18/22) Physical Therapy Treatment Note PT-OP-A Visit Information Start: 01/09/22 17:31 Freq: Status: Active Protocol: Document 03/18/22 13:09 SP (Rec: 03/18/22 13:51 SP [id number]) Out-Patient Physical Therapy Visit Information Visit Information Visit Type Treatment Note Visit Note 10/27 Visit Start Time 13:09 Visit Stop Time 13:47 Total Visit Minutes 38 Visit Number 15 Number of HEALTHCARE ASSOCIATE Visits 3 PT-OP-B Current Condition Start: 01/09/22 17:31 Freq: Status: Active Protocol: Document 01/13/22 14:35 [facility] (Rec: 01/13/22 15:28 [facility] [id number]) Current Condition History of Current Condition Onset Date worsening over past couple years Current Complaints LBP History of Current Condition Pt reprots back surgery L3-5 for fusion in 2014 and did do some PT after that. She had PT for that and since then has had to be careful re: lifting. She also has scoliosis. Pt reports the past 2 years, she feels like her back is bending fwd w/walking and when she sits and reads she bends fwd. She feels like she walks w/ like a rolling motion and L heel scrapes the ground. 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 Pt reports even standing even a couple min is painful to back. Pt does show her dog and she has trouble lifting him to the table if she has to do it too many times (dog 36 lb). Pt had hip dysplagia as baby and wore braces laying down. 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 She had pain thast was getting worse and worse which is what led to surgery. No specific injury. Reports LBP from [employer] and on. Pt still does do some of her pool exercises from last time and goes for a mile walk a day (is harder if done at end of day. Prior Treatments and Tests PT after surgery that was helpful; been to chiro (says back is twisted & he gets things straightens it out and it helps for 2 weeks)-goes 1x/ month at most up to every couple months Treatment Goals Patient/Caregiver Goals Improve strength of hips and improve gait pattern, determine if she needs to go see surgeon again, be abl eto go up/down stairs w/o rail use , dec back pain PT-OP-C Subjective Start: 01/09/22 17:31 Freq: Status: Active Protocol: Document 03/18/22 13:09 SP (Rec: 03/18/22 13:51 SP [id number]) OP-PT Subjective Patient Comments Patient Comments Pt no new reports today. PT-OP-D Balance Start: 01/09/22 17:31 Freq: Status: Active Protocol: Document 01/13/22 14:35 [facility] (Rec: 01/13/22 15:28 [facility] [id number]) Balance Tests Single Limb Standing Single Limb- Right 6 sec w/lat shear Single Limb- Left 25 sec w/lat shear PT-OP-F Manual Assessment Start: 01/09/22 17:31 Freq: Status: Active Protocol: Document 01/13/22 14:35 [facility] (Rec: 01/13/22 15:28 [facility] [id number]) Manual Assessments Soft Tissue Assessment Soft Tissue Mobility Assessment tightness and tenderness: R>L ES, scar, QL, glutes, piriformis Joint Mobility Assessment Joint Mobility Assessment Iliac crest R higher than L; equal greater trochanters PT-OP-G Mobility & Gait Start: 01/09/22 17:31 Freq: Status: Active Protocol: Document 01/13/22 14:35 [facility] (Rec: 01/13/22 15:28 [facility] [id number]) OP Gait Assessment Comments Gait Comments lat lean over LLE and slower gait, dec push off PT-OP-J Posture/Palpation/Skin Start: 01/09/22 17:31 Freq: Status: Active Protocol: Document 03/04/22 15:21 [facility] (Rec: 03/04/22 17:46 [facility] [id number]) Posture Evaluation [facility] Postural Classification System Lumbar Protective Mechanism Left AP 2 Lumbar Protective Mechanism Right AP 2 Lumbar Protective Mechanism Left PA 1 Lumbar Protective Mechanism Right PA 3 PT-OP-K Range of Motion Start: 01/09/22 17:31 Freq: Status: Active Protocol: Document 01/13/22 14:35 [facility] (Rec: 01/13/22 15:28 [facility] [id number]) Lumbar Spine Range of Motion Lumbar Spine Active Extension 60 Rotation Left 33 Rotation Right 50 Lateral Flexion Left 50 Lateral Flexion Right 30 Comments flex w/PT guarding hips to sup patella; to ground; all motion at TL junction w/ext; pain B w/B SB; rot in deg; pain w/left rot PT-OP-L Special Tests Start: 01/09/22 17:31 Freq: Status: Active Protocol: Document 01/13/22 14:35 [facility] (Rec: 01/13/22 15:28 [facility] [id number]) Special Tests Lumbar Spine Special Tests Slump Test Results neg Straight Leg Raise Test Results R 58 deg w/back pain-dec if PF ,L 54 deg w/back pain- dec if PF PT-OP-M Strength Start: 01/09/22 17:31 Freq: Status: Active Protocol: Document 03/04/22 15:21 [facility] (Rec: 03/04/22 17:46 [facility] [id number]) Hip Strength Hip Manual Muscle Testing Right Flexion (L2) 4- Good- Extension (S1) 4- Good- Abduction 3+ Fair+ Adduction 5 Normal External Rotation 4+ Good+ Internal Rotation 4+ Good+ Left Flexion (L2) 4 Good Extension (S1) 4- Good- Abduction 3 Fair Adduction 5 Normal External Rotation 4 Good Internal Rotation 4+ Good+ Comments pain abd lat hip Knee Strength Knee Manual Muscle Testing Right Flexion (S2) 5 Normal Extension (L3) 5 Normal Left Flexion (S2) 5 Normal Extension (L3) 5 Normal Ankle/Foot Strength Ankle and Foot Manual Muscle Testing Right Dorsiflexion (L4) 5 Normal Plantarflexion (S1) 5 Normal Comments PF tested seated Left Dorsiflexion (L4) 5 Normal Plantarflexion (S1) 5 Normal Comments PF tested seate PT-OP-Q Treatments Start: 01/09/22 17:31 Freq: Status: Active Protocol: Document 03/18/22 13:09 SP (Rec: 03/18/22 13:51 SP [id number]) Gym Equipment Shuttle Balance red clips Details WBOS, NBOS Comments 1. F/B/S wt shift 2. stationary HTs *CG- 10%A 3. EC 4 sec F/B WBOS, 3 sec STS Sport Cord red Exercise Details f/b/s hussein Cord/Resistance red Reps/Duration 5 reps each direction Comments cued tall posture w/ scap mus comples and core fac over stance LE, L LE ER to neutral and knee flexion foot clearance L>R. Improved alignment, 2 xLOB but self recovery eccentric return R. Therapeutic Exercises Standing Exercises band walk Standing Exercise Name fwd/back Resistance TB #2 loop Equipment Used at rail Reps/Minutes 20 ft x2 laps Comments improved posturing, cued foot clearance sidesteps Standing Exercise Name review HEP: lateral steps Side bilateral Resistance Tb #2 at ankles Equipment Used rail Reps/Minutes 20ft ea x2 laps Comments cued posturing, hip abd fac, trailing LE clearance Gait Training Gait Activity Stairs Device Used light rounding and backing machine operator contact 1 UE PRN Level of Assistance MAP bldg stairs 28x2 laps Treatment Focus hip abd fac, centering trunk align, receiprical step stability Comments Ascend / descend stairs reciprocal stepping w/o handrails, modified slight side step desending functional for pt. PT-OP-R Modalities Start: 01/09/22 17:31 Freq: Status: Active Protocol: Document 02/03/22 13:49 [facility] (Rec: 02/03/22 14:43 [facility] [id number]) Hot Pack/Cold Pack Treatment Cold Pack Location LB Patient Position Prone Treatment Duration (minutes) 10 PT-OP-T Assessment and Plan Start: 01/09/22 17:31 Freq: Status: Active Protocol: Document 03/18/22 13:09 SP (Rec: 03/18/22 13:51 SP [id number]) Physical Therapy Assessment Goals standing Supervisor Poultry Processing Goal (LTG) Pt will be able to stand as needed for work and at home w/ o inc pain greater than 2/10 02/20/22 (progressing 4/10 after 20 minutes of work, use of seated rest and ice diminishes symptoms). LTG Duration 05/04 stairs Short Term Goal (STG) Pt will be able to safely ascend stairs w/o rail reciprocally. 8/ goal MET STG Duration 02/12/22 GOAL MET 02/20/22 Supervisor Poultry Processing Goal (LTG) Pt will be able to safely descend stairs w/o rail reciprocally. 8/4 goal MET LTG Duration 03/15/22 GOAL MET 02/20/22 balance Supervisor Poultry Processing Goal (LTG) Pt will be able to do SLS 20 sec B w/o lat shear of hip 02/20/22: progressing: RLE 5s, 3s, 7s; LLE 12 s, 10s, 5s 03/04-RLE 13 sec LLE 7 sec LTG Duration 05/04 strength Short Term Goal (STG) Pt will be indep w/HEP STG Duration achieved advancing as needed Supervisor Poultry Processing Goal (LTG) Pt will score at least 3/5 on LPM in all planes and improve LE MMT to at least 4+/5 B to improve pt's gait and ability to lift and stand as needed 03/04-improved LTG Duration 05/04 ZHANNA Impairment 13/50 Short Term Goal (STG) Pt will improve score to at least 8/50 to show improvement in functional ability. STG Duration achievd to 7/50 Prison Goal (LTG) Pt will improve score to at least 3/50 to show improvement in functional ability. LTG Duration 05/04 Assessment Summary Assessment Pt improved postural an core facilitation corrections during core resisted stepping. She required cuing during stair mgt increase RENA and L foot/ LE ER to allow stability ascend/descend. Physical Therapy Plan Frequency and Duration Frequency of Treatment 2x/Week Duration of Treatment 2 months Plan of Care Start Date 03/04/22 Plan of Care End Date 05/04/22 Therapeutic Interventions Therapeutic Interventions Aquatic Therapy,Balance Training,Gait Training,Home Exercise Program,Joint Mobilizations,Manual Therapy, Neuromuscular Re-education, Patient/Caregiver Education, Self-Care/Home Management,Soft Tissue Mobilization,Taping, Therapeutic Activities, Therapeutic Exercises Modalities Cold Pack/Ice Massage,Electric Stimulation,Hot Packs Next Visit Focus/Plan Next Note Type Treatment Note Next Visit Plan progress functional strengthening in standing. Continue per POC: Continue core stability progression, manual to lumbar and hips
--- NOTE | 2022-03-20 12:16 | PT.OTN ---
Current Diagnoses Pain in unspecified hip (03/20/22) Low back pain, unspecified (03/20/22) Difficulty in walking, not elsewhere classified (03/20/22) Unspecified abnormalities of gait and mobility (03/20/22) Abnormal posture (03/20/22) Weakness (03/20/22) Physical Therapy Treatment Note PT-OP-A Visit Information Start: 01/09/22 17:31 Freq: Status: Active Protocol: Document 03/20/22 10:52 [facility] (Rec: 03/20/22 12:16 [facility] [id number]) Out-Patient Physical Therapy Visit Information Visit Information Visit Type Treatment Note Visit Note 11/26 Visit Start Time 10:38 Visit Stop Time 11:17 Total Visit Minutes 39 Visit Number 16 Number of BUSINESS REPRESENTATIVE Visits 0 PT-OP-B Current Condition Start: 01/09/22 17:31 Freq: Status: Active Protocol: Document 01/13/22 14:35 [facility] (Rec: 01/13/22 15:28 [facility] [id number]) Current Condition History of Current Condition Onset Date worsening over past couple years Current Complaints LBP History of Current Condition Pt reprots back surgery L3-5 for fusion in 2014 and did do some PT after that. She had PT for that and since then has had to be careful re: lifting. She also has scoliosis. Pt reports the past 2 years, she feels like her back is bending fwd w/walking and when she sits and reads she bends fwd. She feels like she walks w/ like a rolling motion and L heel scrapes the ground. 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 Pt reports even standing even a couple min is painful to back. Pt does show her dog and she has trouble lifting him to the table if she has to do it too many times (dog 36 lb). Pt had hip dysplagia as baby and wore braces laying down. 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 She had pain thast was getting worse and worse which is what led to surgery. No specific injury. Reports LBP from [employer] and on. Pt still does do some of her pool exercises from last time and goes for a mile walk a day (is harder if done at end of day. Prior Treatments and Tests PT after surgery that was helpful; been to chiro (says back is twisted & he gets things straightens it out and it helps for 2 weeks)-goes 1x/ month at most up to every couple months Treatment Goals Patient/Caregiver Goals Improve strength of hips and improve gait pattern, determine if she needs to go see surgeon again, be abl eto go up/down stairs w/o rail use , dec back pain PT-OP-C Subjective Start: 01/09/22 17:31 Freq: Status: Active Protocol: Document 03/20/22 10:52 [facility] (Rec: 03/20/22 12:16 [facility] [id number]) OP-PT Subjective Patient Comments Patient Comments Pt reports overall doing well with back but ntoes vacuuming does cause pain PT-OP-D Balance Start: 01/09/22 17:31 Freq: Status: Active Protocol: Document 01/13/22 14:35 [facility] (Rec: 01/13/22 15:28 [facility] [id number]) Balance Tests Single Limb Standing Single Limb- Right 6 sec w/lat shear Single Limb- Left 25 sec w/lat shear PT-OP-F Manual Assessment Start: 01/09/22 17:31 Freq: Status: Active Protocol: Document 01/13/22 14:35 [facility] (Rec: 01/13/22 15:28 [facility] [id number]) Manual Assessments Soft Tissue Assessment Soft Tissue Mobility Assessment tightness and tenderness: R>L ES, scar, QL, glutes, piriformis Joint Mobility Assessment Joint Mobility Assessment Iliac crest R higher than L; equal greater trochanters PT-OP-G Mobility & Gait Start: 01/09/22 17:31 Freq: Status: Active Protocol: Document 01/13/22 14:35 [facility] (Rec: 01/13/22 15:28 [facility] [id number]) OP Gait Assessment Comments Gait Comments lat lean over LLE and slower gait, dec push off PT-OP-J Posture/Palpation/Skin Start: 01/09/22 17:31 Freq: Status: Active Protocol: Document 03/04/22 15:21 [facility] (Rec: 03/04/22 17:46 [facility] [id number]) Posture Evaluation Zayra Postural Classification System Lumbar Protective Mechanism Left AP 2 Lumbar Protective Mechanism Right AP 2 Lumbar Protective Mechanism Left PA 1 Lumbar Protective Mechanism Right PA 3 PT-OP-K Range of Motion Start: 01/09/22 17:31 Freq: Status: Active Protocol: Document 01/13/22 14:35 [facility] (Rec: 01/13/22 15:28 [facility] [id number]) Lumbar Spine Range of Motion Lumbar Spine Active Extension 60 Rotation Left 33 Rotation Right 50 Lateral Flexion Left 50 Lateral Flexion Right 30 Comments flex w/PT guarding hips to sup patella; to ground; all motion at TL junction w/ext; pain B w/B SB; rot in deg; pain w/left rot PT-OP-L Special Tests Start: 01/09/22 17:31 Freq: Status: Active Protocol: Document 01/13/22 14:35 [facility] (Rec: 01/13/22 15:28 [facility] [id number]) Special Tests Lumbar Spine Special Tests Slump Test Results neg Straight Leg Raise Test Results R 58 deg w/back pain-dec if PF ,L 54 deg w/back pain- dec if PF PT-OP-M Strength Start: 01/09/22 17:31 Freq: Status: Active Protocol: Document 03/04/22 15:21 [facility] (Rec: 03/04/22 17:46 [facility] [id number]) Hip Strength Hip Manual Muscle Testing Right Flexion (L2) 4- Good- Extension (S1) 4- Good- Abduction 3+ Fair+ Adduction 5 Normal External Rotation 4+ Good+ Internal Rotation 4+ Good+ Left Flexion (L2) 4 Good Extension (S1) 4- Good- Abduction 3 Fair Adduction 5 Normal External Rotation 4 Good Internal Rotation 4+ Good+ Comments pain abd lat hip Knee Strength Knee Manual Muscle Testing Right Flexion (S2) 5 Normal Extension (L3) 5 Normal Left Flexion (S2) 5 Normal Extension (L3) 5 Normal Ankle/Foot Strength Ankle and Foot Manual Muscle Testing Right Dorsiflexion (L4) 5 Normal Plantarflexion (S1) 5 Normal Comments PF tested seated Left Dorsiflexion (L4) 5 Normal Plantarflexion (S1) 5 Normal Comments PF tested seate PT-OP-Q Treatments Start: 01/09/22 17:31 Freq: Status: Active Protocol: Document 03/20/22 10:52 [facility] (Rec: 03/20/22 12:16 [facility] [id number]) Gym Equipment Shuttle Balance red clips Details WBOS, NBOS Comments fwd & side facing balancign & wt shifts Sport Cord red Exercise Details f/b/s hussein Cord/Resistance red Reps/Duration 5 reps each direction Comments cued tall posture w/ scap mus comples and core fac over stance Therapeutic Exercises Sidelying Exercises hip abd Sidelying Exercise Name HEP reviewed Side bilateral Reps/Minutes 10 Therapeutic Activity Therapeutic Activity vacuuming Comments workign on hip hinge and worked on mechanics when vacuuming w/back neutral PT-OP-R Modalities Start: 01/09/22 17:31 Freq: Status: Active Protocol: Document 02/03/22 13:49 [facility] (Rec: 02/03/22 14:43 [facility] [id number]) Hot Pack/Cold Pack Treatment Cold Pack Location LB Patient Position Prone Treatment Duration (minutes) 10 PT-OP-T Assessment and Plan Start: 01/09/22 17:31 Freq: Status: Active Protocol: Document 03/20/22 10:52 [facility] (Rec: 03/20/22 12:16 [facility] [id number]) Physical Therapy Assessment Goals standing Fci Goal (LTG) Pt will be able to stand as needed for work and at home w/ o inc pain greater than 2/10 02/20/22 (progressing 4/10 after 20 minutes of work, use of seated rest and ice diminishes symptoms). LTG Duration 05/04 stairs Short Term Goal (STG) Pt will be able to safely ascend stairs w/o rail reciprocally. 02/20 goal MET STG Duration 02/12/22 GOAL MET 02/20/22 [facility]ci Goal (LTG) Pt will be able to safely descend stairs w/o rail reciprocally. 02/20 goal MET LTG Duration 03/15/22 GOAL MET 02/20/22 balance Jacquard Twine Polisher Operator Goal (LTG) Pt will be able to do SLS 20 sec B w/o lat shear of hip 02/20/22: progressing: RLE 5s, 3s, 7s; LLE 12 s, 10s, 5s 03/04-RLE 13 sec LLE 7 sec LTG Duration 05/04 strength Short Term Goal (STG) Pt will be indep w/HEP STG Duration achieved advancing as needed Fci Goal (LTG) Pt will score at least 3/5 on LPM in all planes and improve LE MMT to at least 4+/5 B to improve pt's gait and ability to lift and stand as needed 03/04-improved LTG Duration 05/04 ZHANNA Impairment 13/50 Short Term Goal (STG) Pt will improve score to at least 8/50 to show improvement in functional ability. STG Duration achievd to 7/50 Jacquard Twine Polisher Operator Goal (LTG) Pt will improve score to at least 3/50 to show improvement in functional ability. LTG Duration 05/04 Assessment Summary Assessment Pt did well with exercises and had no LOB w/sport cord today and demonstrated improved ability to maintain posture during exercise. w/cues to put hand on hip during s/l abd, pt had imrpoved self awarenss during exercise. Physical Therapy Plan Frequency and Duration Frequency of Treatment 2x/Week Duration of Treatment 2 months Plan of Care Start Date 03/04/22 Plan of Care End Date 05/04/22 Next Visit Focus/Plan Next Note Type Treatment Note Next Visit Plan progress functional strengthening in standing. Continue per POC: Continue core stability progression, manual to lumbar and hips
--- NOTE | 2022-03-26 10:30 | PT.OTN ---
Current Diagnoses Pain in unspecified hip (03/26/22) Low back pain, unspecified (03/26/22) Difficulty in walking, not elsewhere classified (03/26/22) Unspecified abnormalities of gait and mobility (03/26/22) Abnormal posture (03/26/22) Weakness (03/26/22) Physical Therapy Treatment Note PT-OP-A Visit Information Start: 01/09/22 17:31 Freq: Status: Active Protocol: Document 03/26/22 09:51 [facility] (Rec: 03/26/22 10:32 [facility] [id number]) Out-Patient Physical Therapy Visit Information Visit Information Visit Type Treatment Note Visit Note 12/27 Visit Start Time 09:51 Visit Stop Time 10:30 Total Visit Minutes 39 Visit Number 17 Number of PHOTO RETOUCHER Visits 1 PT-OP-B Current Condition Start: 01/09/22 17:31 Freq: Status: Active Protocol: Document 01/13/22 14:35 [facility] (Rec: 01/13/22 15:28 [facility] [id number]) Current Condition History of Current Condition Onset Date worsening over past couple years Current Complaints LBP History of Current Condition Pt reprots back surgery L3-5 for fusion in 2014 and did do some PT after that. She had PT for that and since then has had to be careful re: lifting. She also has scoliosis. Pt reports the past 2 years, she feels like her back is bending fwd w/walking and when she sits and reads she bends fwd. She feels like she walks w/ like a rolling motion and L heel scrapes the ground. 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 Pt reports even standing even a couple min is painful to back. Pt does show her dog and she has trouble lifting him to the table if she has to do it too many times (dog 36 lb). Pt had hip dysplagia as baby and wore braces laying down. 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 She had pain thast was getting worse and worse which is what led to surgery. No specific injury. Reports LBP from [employer] and on. Pt still does do some of her pool exercises from last time and goes for a mile walk a day (is harder if done at end of day. Prior Treatments and Tests PT after surgery that was helpful; been to chiro (says back is twisted & he gets things straightens it out and it helps for 2 weeks)-goes 1x/ month at most up to every couple months Treatment Goals Patient/Caregiver Goals Improve strength of hips and improve gait pattern, determine if she needs to go see surgeon again, be abl eto go up/down stairs w/o rail use , dec back pain PT-OP-C Subjective Start: 01/09/22 17:31 Freq: Status: Active Protocol: Document 03/26/22 09:51 [facility] (Rec: 03/26/22 10:32 [facility] [id number]) OP-PT Subjective Patient Comments Patient Comments Pt reported didn't try vacuuming but did do some yard work. 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 PT-OP-D Balance Start: 01/09/22 17:31 Freq: Status: Active Protocol: Document 01/13/22 14:35 [facility] (Rec: 01/13/22 15:28 [facility] [id number]) Balance Tests Single Limb Standing Single Limb- Right 6 sec w/lat shear Single Limb- Left 25 sec w/lat shear PT-OP-F Manual Assessment Start: 01/09/22 17:31 Freq: Status: Active Protocol: Document 01/13/22 14:35 [facility] (Rec: 01/13/22 15:28 [facility] [id number]) Manual Assessments Soft Tissue Assessment Soft Tissue Mobility Assessment tightness and tenderness: R>L ES, scar, QL, glutes, piriformis Joint Mobility Assessment Joint Mobility Assessment Iliac crest R higher than L; equal greater trochanters PT-OP-G Mobility & Gait Start: 01/09/22 17:31 Freq: Status: Active Protocol: Document 01/13/22 14:35 [facility] (Rec: 01/13/22 15:28 [facility] [id number]) OP Gait Assessment Comments Gait Comments lat lean over LLE and slower gait, dec push off PT-OP-J Posture/Palpation/Skin Start: 01/09/22 17:31 Freq: Status: Active Protocol: Document 03/04/22 15:21 [facility] (Rec: 03/04/22 17:46 [facility] [id number]) Posture Evaluation Zayra Postural Classification System Lumbar Protective Mechanism Left AP 2 Lumbar Protective Mechanism Right AP 2 Lumbar Protective Mechanism Left PA 1 Lumbar Protective Mechanism Right PA 3 PT-OP-K Range of Motion Start: 01/09/22 17:31 Freq: Status: Active Protocol: Document 01/13/22 14:35 [facility] (Rec: 01/13/22 15:28 [facility] [id number]) Lumbar Spine Range of Motion Lumbar Spine Active Extension 60 Rotation Left 33 Rotation Right 50 Lateral Flexion Left 50 Lateral Flexion Right 30 Comments flex w/PT guarding hips to sup patella; to ground; all motion at TL junction w/ext; pain B w/B SB; rot in deg; pain w/left rot PT-OP-L Special Tests Start: 01/09/22 17:31 Freq: Status: Active Protocol: Document 01/13/22 14:35 [facility] (Rec: 01/13/22 15:28 [facility] [id number]) Special Tests Lumbar Spine Special Tests Slump Test Results neg Straight Leg Raise Test Results R 58 deg w/back pain-dec if PF ,L 54 deg w/back pain- dec if PF PT-OP-M Strength Start: 01/09/22 17:31 Freq: Status: Active Protocol: Document 03/04/22 15:21 [facility] (Rec: 03/04/22 17:46 [facility] [id number]) Hip Strength Hip Manual Muscle Testing Right Flexion (L2) 4- Good- Extension (S1) 4- Good- Abduction 3+ Fair+ Adduction 5 Normal External Rotation 4+ Good+ Internal Rotation 4+ Good+ Left Flexion (L2) 4 Good Extension (S1) 4- Good- Abduction 3 Fair Adduction 5 Normal External Rotation 4 Good Internal Rotation 4+ Good+ Comments pain abd lat hip Knee Strength Knee Manual Muscle Testing Right Flexion (S2) 5 Normal Extension (L3) 5 Normal Left Flexion (S2) 5 Normal Extension (L3) 5 Normal Ankle/Foot Strength Ankle and Foot Manual Muscle Testing Right Dorsiflexion (L4) 5 Normal Plantarflexion (S1) 5 Normal Comments PF tested seated Left Dorsiflexion (L4) 5 Normal Plantarflexion (S1) 5 Normal Comments PF tested seate PT-OP-Q Treatments Start: 01/09/22 17:31 Freq: Status: Active Protocol: Document 03/26/22 09:51 [facility] (Rec: 03/26/22 10:32 [facility] [id number]) Gym Equipment Shuttle Balance red clips Details WBOS, NBOS Comments fwd & side facing balancing HTs, wt shifts, squats, balloon volley, EC 4 sec WBOS. CG- Min A *cued core awareness, hip hinge during squats. Sport Cord red Exercise Details f/b/s hussein Cord/Resistance red Reps/Duration 5 reps each direction Comments cued tall posture w/ scap mus complex and core fac over stance LE book on head -LLE hip abd weaker than RLE stance time. Therapeutic Exercises Sidelying Exercises hip abd Sidelying Exercise Name HEP reviewed Side bilateral Equipment Used 2 pillows between BLEs to assist encourage neutral beyod hip height. 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 Not timed time next tx. PT-OP-R Modalities Start: 01/09/22 17:31 Freq: Status: Active Protocol: Document 02/03/22 13:49 [facility] (Rec: 02/03/22 14:43 [facility] [id number]) Hot Pack/Cold Pack Treatment Cold Pack Location LB Patient Position Prone Treatment Duration (minutes) 10 PT-OP-T Assessment and Plan Start: 01/09/22 17:31 Freq: Status: Active Protocol: Document 03/26/22 09:51 [facility] (Rec: 03/26/22 10:32 SP [id number]) Physical Therapy Assessment Goals standing Correction Goal (LTG) Pt will be able to stand as needed for work and at home w/ o inc pain greater than 2/10 02/20/22 (progressing 4/10 after 20 minutes of work, use of seated rest and ice diminishes symptoms). LTG Duration 10 stairs Short Term Goal (STG) Pt will be able to safely ascend stairs w/o rail reciprocally. 02/20 goal MET STG Duration 02/12/22 GOAL MET 02/20/22 Correction Goal (LTG) Pt will be able to safely descend stairs w/o rail reciprocally. 02/20 goal MET LTG Duration 03/15/22 GOAL MET 02/20/22 balance Correction Goal (LTG) Pt will be able to do SLS 20 sec B w/o lat shear of hip 02/20/22: progressing: RLE 5s, 3s, 7s; LLE 12 s, 10s, 5s 03/04-RLE 13 sec LLE 7 sec LTG Duration 05/04 strength Short Term Goal (STG) Pt will be indep w/HEP STG Duration achieved advancing as needed Vessel Operator Goal (LTG) Pt will score at least 3/5 on LPM in all planes and improve LE MMT to at least 4+/5 B to improve pt's gait and ability to lift and stand as needed 03/04-improved 03/26/22: added quick side stepping ladder drills for core/ hip abd strength. LTG Duration 05/04 progressin03/26/22 ZHANNA Impairment 13/50 Short Term Goal (STG) Pt will improve score to at least 8/50 to show improvement in functional ability. STG Duration achievd to 7/50 Correction Goal (LTG) Pt will improve score to at least 3/50 to show improvement in functional ability. LTG Duration 05/04 Assessment Summary Assessment Pt improved hip abd and TA during sport cord and added quick side stepping ladder drill with very little trunk side bend compensations today end tx. Pt able to complete SLS no support open space end tx. Check how long next tx. Physical Therapy Plan Frequency and Duration Frequency of Treatment 2x/Week Duration of Treatment 2 months Plan of Care Start Date 03/04/22 Plan of Care End Date 05/04/22 Therapeutic Interventions Therapeutic Interventions Aquatic Therapy,Balance Training,Gait Training,Home Exercise Program,Joint Mobilizations,Manual Therapy, Neuromuscular Re-education, Patient/Caregiver Education, Self-Care/Home Management,Soft Tissue Mobilization,Taping, Therapeutic Activities, Therapeutic Exercises Modalities Cold Pack/Ice Massage,Electric Stimulation,Hot Packs Next Visit Focus/Plan Next Note Type Treatment Note Next Visit Plan Recheck quick side stepping ladder drills. Continue shuttle bal squats f/side. CHeck timed SLS next tx for improvement progressing. POC: progress functional strengthening in standing. Continue per POC: Continue core stability progression, manual to lumbar and hips
--- NOTE | 2022-04-04 08:20 | PT.OTN ---
Addendum entered and electronically signed by Radha Carpenter, BARREL ASSEMBLER 04/04/22 11:43: Assess if need more appts after already scheduled appts. Call if openings in therapy schedule, next appt 04/22 for progress. Original Note: Current Diagnoses Pain in unspecified hip (04/04/22) Low back pain, unspecified (04/04/22) Difficulty in walking, not elsewhere classified (04/04/22) Unspecified abnormalities of gait and mobility (04/04/22) Abnormal posture (04/04/22) Weakness (04/04/22) Physical Therapy Treatment Note PT-OP-A Visit Information Start: 01/09/22 17:31 Freq: Status: Active Protocol: Document 04/04/22 07:32 SP (Rec: 04/04/22 08:21 SP [id number]) Out-Patient Physical Therapy Visit Information Visit Information Visit Type Treatment Note Visit Note 01/26 Visit Start Time 07:32 Visit Stop Time 08:20 Total Visit Minutes 48 Visit Number 18 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 She had PT for that and since then has had to be careful re: lifting. She also has scoliosis. Pt reports the past 2 years, she feels like her back is bending fwd w/walking and when she sits and reads she bends fwd. She feels like she walks w/ like a rolling motion and L heel scrapes the ground. 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 Pt reports even standing even a couple min is painful to back. Pt does show her dog and she has trouble lifting him to the table if she has to do it too many times (dog 36 lb). Pt had hip dysplagia as baby and wore braces laying down. 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 She had pain thast was getting worse and worse which is what led to surgery. No specific injury. Reports LBP from [employer] and on. Pt still does do some of her pool exercises from last time and goes for a mile walk a day (is harder if done at end of day. Prior Treatments and Tests PT after surgery that was helpful; been to chiro (says back is twisted & he gets things straightens it out and it helps for 2 weeks)-goes 1x/ month at most up to every couple months Treatment Goals Patient/Caregiver Goals Improve strength of hips and improve gait pattern, determine if she needs to go see surgeon again, be abl eto go up/down stairs w/o rail use , dec back pain PT-OP-C Subjective Start: 01/09/22 17:31 Freq: Status: Active Protocol: Document 04/04/22 07:32 SP (Rec: 04/04/22 08:21 SP [id number]) OP-PT Subjective Patient Comments Patient Comments Pt stated fell onto R knee and R elbow when performing quick side stepping due to L foot caught floor resulting in back hurting again. PT-OP-D Balance Start: 01/09/22 17:31 Freq: Status: Active Protocol: Document 01/13/22 14:35 [facility] (Rec: 01/13/22 15:28 [facility] [id number]) Balance Tests Single Limb Standing Single Limb- Right 6 sec w/lat shear Single Limb- Left 25 sec w/lat shear PT-OP-F Manual Assessment Start: 01/09/22 17:31 Freq: Status: Active Protocol: Document 01/13/22 14:35 [facility] (Rec: 01/13/22 15:28 [facility] [id number]) Manual Assessments Soft Tissue Assessment Soft Tissue Mobility Assessment tightness and tenderness: R>L ES, scar, QL, glutes, piriformis Joint Mobility Assessment Joint Mobility Assessment Iliac crest R higher than L; equal greater trochanters PT-OP-G Mobility & Gait Start: 01/09/22 17:31 Freq: Status: Active Protocol: Document 01/13/22 14:35 [facility] (Rec: 01/13/22 15:28 [facility] [id number]) OP Gait Assessment Comments Gait Comments lat lean over LLE and slower gait, dec push off PT-OP-J Posture/Palpation/Skin Start: 01/09/22 17:31 Freq: Status: Active Protocol: Document 03/04/22 15:21 [facility] (Rec: 03/04/22 17:46 [facility] [id number]) Posture Evaluation [facility] Postural Classification System Lumbar Protective Mechanism Left AP 2 Lumbar Protective Mechanism Right AP 2 Lumbar Protective Mechanism Left PA 1 Lumbar Protective Mechanism Right PA 3 PT-OP-K Range of Motion Start: 01/09/22 17:31 Freq: Status: Active Protocol: Document 01/13/22 14:35 [facility] (Rec: 01/13/22 15:28 [facility] [id number]) Lumbar Spine Range of Motion Lumbar Spine Active Extension 60 Rotation Left 33 Rotation Right 50 Lateral Flexion Left 50 Lateral Flexion Right 30 Comments flex w/PT guarding hips to sup patella; to ground; all motion at TL junction w/ext; pain B w/B SB; rot in deg; pain w/left rot PT-OP-L Special Tests Start: 01/09/22 17:31 Freq: Status: Active Protocol: Document 01/13/22 14:35 [facility] (Rec: 01/13/22 15:28 [facility] [id number]) Special Tests Lumbar Spine Special Tests Slump Test Results neg Straight Leg Raise Test Results R 58 deg w/back pain-dec if PF ,L 54 deg w/back pain- dec if PF PT-OP-M Strength Start: 01/09/22 17:31 Freq: Status: Active Protocol: Document 03/04/22 15:21 [facility] (Rec: 03/04/22 17:46 [facility] [id number]) Hip Strength Hip Manual Muscle Testing Right Flexion (L2) 4- Good- Extension (S1) 4- Good- Abduction 3+ Fair+ Adduction 5 Normal External Rotation 4+ Good+ Internal Rotation 4+ Good+ Left Flexion (L2) 4 Good Extension (S1) 4- Good- Abduction 3 Fair Adduction 5 Normal External Rotation 4 Good Internal Rotation 4+ Good+ Comments pain abd lat hip Knee Strength Knee Manual Muscle Testing Right Flexion (S2) 5 Normal Extension (L3) 5 Normal Left Flexion (S2) 5 Normal Extension (L3) 5 Normal Ankle/Foot Strength Ankle and Foot Manual Muscle Testing Right Dorsiflexion (L4) 5 Normal Plantarflexion (S1) 5 Normal Comments PF tested seated Left Dorsiflexion (L4) 5 Normal Plantarflexion (S1) 5 Normal Comments PF tested seate PT-OP-Q Treatments Start: 01/09/22 17:31 Freq: Status: Active Protocol: Document 04/04/22 07:32 SP (Rec: 04/04/22 08:21 SP [id number]) Therapeutic Exercises Supine Exercises LTR Supine Exercise Name comfortable range Side bilateral Resistance stretch Reps/Minutes 60 Comments good feedback stretch Sitting Exercises stretching Sitting Exercise Name trunk flexion/ QL, piriformis stretching Side bilateral Reps/Minutes 30 each Comments good form and response to stretch Standing Exercises sidesteps Standing Exercise Name review HEP: lateral steps Side bilateral Resistance Tb #2>#1 loop at mid lux Equipment Used rail Reps/Minutes 20ft ea x2 laps Comments good posturing and self attention to foot clearance Manual Therapy Treatment Soft Tissue Mobilization hips Body Location B glutes max/ med & piriformis Mobilization Type Strumming Intensity/Depth Moderate Body Position Prone Comments manual states decreased tension lumbar Body Location B ES, QL Mobilization Type Myofascial Release,Strumming, Sustained Pressure,Trigger Point Release Intensity/Depth Moderate Body Position Prone Comments manual states tension Manual Traction LS manual traction Body Position Hooklying Reps/Duration use of strap behind calves- no improve response Comments good feedback stretch high on calves. 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 Trial uneven surface next tx. PT-OP-R Modalities Start: 01/09/22 17:31 Freq: Status: Active Protocol: Document 02/03/22 13:49 [facility] (Rec: 02/03/22 14:43 [facility] [id number]) Hot Pack/Cold Pack Treatment Cold Pack Location LB Patient Position Prone Treatment Duration (minutes) 10 PT-OP-T Assessment and Plan Start: 01/09/22 17:31 Freq: Status: Active Protocol: Document 04/04/22 07:32 SP (Rec: 04/04/22 08:21 SP [id number]) Physical Therapy Assessment Goals standing Prison Goal (LTG) Pt will be able to stand as needed for work and at home w/ o inc pain greater than 2/10 02/20/22: (progressing 4/10 after 20 minutes of work, use of seated rest and ice diminishes symptoms). 04/04/22: progressing: was doing well standign for 40 min without bothering her but after fall Wed and now 7-8/10 walking dog fo r1 hr and had to apply ice and rest. LTG Duration 05/04 regression 04/04/22 stairs Short Term Goal (STG) Pt will be able to safely ascend stairs w/o rail reciprocally. 02/20 goal MET STG Duration 02/12/22 GOAL MET 02/20/22 Prison Goal (LTG) Pt will be able to safely descend stairs w/o rail reciprocally. 02/20 goal MET LTG Duration 03/15/22 GOAL MET 02/20/22 balance Trucksmith Goal (LTG) Pt will be able to do SLS 20 sec B w/o lat shear of hip 02/20/22: progressing: RLE 5s, 3s, 7s; LLE 12 s, 10s, 5s 03/04-RLE 13 sec LLE 7 sec 04/04/22: GOAL MET: BLE 30 sec. LTG Duration 05/04 MET GOAL strength Short Term Goal (STG) Pt will be indep w/HEP STG Duration achieved advancing as needed Trucksmith Goal (LTG) Pt will score at least 3/5 on LPM in all planes and improve LE MMT to at least 4+/5 B to improve pt's gait and ability to lift and stand as needed 03/04-improved 03/26/22: added quick side stepping ladder drills for core/ hip abd strength. LTG Duration 05/04 progressin03/26/22 ZHANNA Impairment 13/50 Short Term Goal (STG) Pt will improve score to at least 8/50 to show improvement in functional ability. STG Duration achievd to 7/50 Trucksmith Goal (LTG) Pt will improve score to at least 3/50 to show improvement in functional ability. LTG Duration 05/04 Progress Towards Goals Progress Towards Goals Progressing Toward Goals Progress Comments GOAL MET LTG Balance: BLE 30 sec. Assessment Summary Assessment Pt reported manual and stretching helped alot, very little discomfort in LB end tx . Discussed caution of quick stepping as HEP resulted in good hip abd/core fac and improved alignment but not at expense of falls. Discussed performance near counter not in hallway for safety support and awareness of WBOS and chopping side steps so feet fully clear vs side shuffle can catch. Better understanding and stated wants to continue. Improved SLS 30sec each LE stable hip abd/ core no leaning or sways. Physical Therapy Plan Frequency and Duration Frequency of Treatment 2x/Week Duration of Treatment 2 months Plan of Care Start Date 03/04/22 Plan of Care End Date 05/04/22 Therapeutic Interventions Therapeutic Interventions Aquatic Therapy,Balance Training,Gait Training,Home Exercise Program,Joint Mobilizations,Manual Therapy, Neuromuscular Re-education, Patient/Caregiver Education, Self-Care/Home Management,Soft Tissue Mobilization,Taping, Therapeutic Activities, Therapeutic Exercises Modalities Cold Pack/Ice Massage,Electric Stimulation,Hot Packs Next Visit Focus/Plan Next Note Type Treatment Note Next Visit Plan Recheck quick WBOS side step ladder drills safety performance. Continue shuttle bal squats f/side. POC: progress functional strengthening in standing. Continue per POC: Continue core stability progression, manual to lumbar and hips
--- NOTE | 2022-04-24 08:15 | PT.OTN ---
Current Diagnoses Pain in unspecified hip (04/24/22) Low back pain, unspecified (04/24/22) Difficulty in walking, not elsewhere classified (04/24/22) Unspecified abnormalities of gait and mobility (04/24/22) Abnormal posture (04/24/22) Weakness (04/24/22) Physical Therapy Treatment Note PT-OP-A Visit Information Start: 01/09/22 17:31 Freq: Status: Active Protocol: Document 04/24/22 07:30 SP (Rec: 04/24/22 08:16 SP [id number]) Out-Patient Physical Therapy Visit Information Visit Information Visit Type Treatment Note Visit Note 02/26 Visit Start Time 07:30 Visit Stop Time 08:15 Total Visit Minutes 45 Visit Number 19 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 She had PT for that and since then has had to be careful re: lifting. She also has scoliosis. Pt reports the past 2 years, she feels like her back is bending fwd w/walking and when she sits and reads she bends fwd. She feels like she walks w/ like a rolling motion and L heel scrapes the ground. 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 Pt reports even standing even a couple min is painful to back. Pt does show her dog and she has trouble lifting him to the table if she has to do it too many times (dog 36 lb). Pt had hip dysplagia as baby and wore braces laying down. 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 She had pain thast was getting worse and worse which is what led to surgery. No specific injury. Reports LBP from [employer] and on. Pt still does do some of her pool exercises from last time and goes for a mile walk a day (is harder if done at end of day. Prior Treatments and Tests PT after surgery that was helpful; been to chiro (says back is twisted & he gets things straightens it out and it helps for 2 weeks)-goes 1x/ month at most up to every couple months Treatment Goals Patient/Caregiver Goals Improve strength of hips and improve gait pattern, determine if she needs to go see surgeon again, be abl eto go up/down stairs w/o rail use , dec back pain PT-OP-C Subjective Start: 01/09/22 17:31 Freq: Status: Active Protocol: Document 04/24/22 07:30 SP (Rec: 04/24/22 08:16 SP [id number]) OP-PT Subjective Patient Comments Patient Comments Pt reported having pain 5/10 across low back and more lateral SB walking since had to assist her dog from being attached and affected her body . States compliant with HEP, trying not lift things and walking to help hips feel better. Is starting to work more so not sure will be continuing PT beyond next appt . PT-OP-D Balance Start: 01/09/22 17:31 Freq: Status: Active Protocol: Document 01/13/22 14:35 [facility] (Rec: 01/13/22 15:28 [facility] [id number]) Balance Tests Single Limb Standing Single Limb- Right 6 sec w/lat shear Single Limb- Left 25 sec w/lat shear PT-OP-F Manual Assessment Start: 01/09/22 17:31 Freq: Status: Active Protocol: Document 01/13/22 14:35 [facility] (Rec: 01/13/22 15:28 [facility] [id number]) Manual Assessments Soft Tissue Assessment Soft Tissue Mobility Assessment tightness and tenderness: R>L ES, scar, QL, glutes, piriformis Joint Mobility Assessment Joint Mobility Assessment Iliac crest R higher than L; equal greater trochanters PT-OP-G Mobility & Gait Start: 01/09/22 17:31 Freq: Status: Active Protocol: Document 01/13/22 14:35 [facility] (Rec: 01/13/22 15:28 [facility] [id number]) OP Gait Assessment Comments Gait Comments lat lean over LLE and slower gait, dec push off PT-OP-J Posture/Palpation/Skin Start: 01/09/22 17:31 Freq: Status: Active Protocol: Document 03/04/22 15:21 [facility] (Rec: 03/04/22 17:46 [facility] [id number]) Posture Evaluation [facility] Postural Classification System Lumbar Protective Mechanism Left AP 2 Lumbar Protective Mechanism Right AP 2 Lumbar Protective Mechanism Left PA 1 Lumbar Protective Mechanism Right PA 3 PT-OP-K Range of Motion Start: 01/09/22 17:31 Freq: Status: Active Protocol: Document 01/13/22 14:35 [facility] (Rec: 01/13/22 15:28 [facility] [id number]) Lumbar Spine Range of Motion Lumbar Spine Active Extension 60 Rotation Left 33 Rotation Right 50 Lateral Flexion Left 50 Lateral Flexion Right 30 Comments flex w/PT guarding hips to sup patella; to ground; all motion at TL junction w/ext; pain B w/B SB; rot in deg; pain w/left rot PT-OP-L Special Tests Start: 01/09/22 17:31 Freq: Status: Active Protocol: Document 01/13/22 14:35 [facility] (Rec: 01/13/22 15:28 [facility] [id number]) Special Tests Lumbar Spine Special Tests Slump Test Results neg Straight Leg Raise Test Results R 58 deg w/back pain-dec if PF ,L 54 deg w/back pain- dec if PF PT-OP-M Strength Start: 01/09/22 17:31 Freq: Status: Active Protocol: Document 03/04/22 15:21 [facility] (Rec: 03/04/22 17:46 [facility] [id number]) Hip Strength Hip Manual Muscle Testing Right Flexion (L2) 4- Good- Extension (S1) 4- Good- Abduction 3+ Fair+ Adduction 5 Normal External Rotation 4+ Good+ Internal Rotation 4+ Good+ Left Flexion (L2) 4 Good Extension (S1) 4- Good- Abduction 3 Fair Adduction 5 Normal External Rotation 4 Good Internal Rotation 4+ Good+ Comments pain abd lat hip Knee Strength Knee Manual Muscle Testing Right Flexion (S2) 5 Normal Extension (L3) 5 Normal Left Flexion (S2) 5 Normal Extension (L3) 5 Normal Ankle/Foot Strength Ankle and Foot Manual Muscle Testing Right Dorsiflexion (L4) 5 Normal Plantarflexion (S1) 5 Normal Comments PF tested seated Left Dorsiflexion (L4) 5 Normal Plantarflexion (S1) 5 Normal Comments PF tested seate PT-OP-Q Treatments Start: 01/09/22 17:31 Freq: Status: Active Protocol: Document 04/24/22 07:30 SP (Rec: 04/24/22 08:16 SP [id number]) Therapeutic Exercises Supine Exercises stretch Supine Exercise Name piriformis, DKTC Side bilateral Reps/Minutes 30 sec Comments ed for performance with hip low back tension/discomfort Sidelying Exercises hip abd Sidelying Exercise Name HEP reviewed Side bilateral Equipment Used not need pillow between BLEs, improved lift R>L Reps/Minutes x15 Comments improved ROM, cued hip ext/ trunk alignment straight Sitting Exercises STS Sitting Exercise Name added to HEP Resistance TB #1 loop at knees Reps/Minutes x10 Comments pt light contact safety positioning of chair descent Standing Exercises SLS Standing Exercise Name HEP reviewed Equipment Used post manual and ther ex end tx : RLE 16 sec, LLE 24s Reps/Minutes less stance time today due to pain from dog assist from attack Comments LLE 8s (less from 23 last tx) RLE:11 s (less from 30 last tx) paloff press Standing Exercise Name review HEP Resistance lvl 3 bands Reps/Minutes x10 Comments good feedback muscle effort painfree sidesteps Standing Exercise Name review HEP: lateral steps Side bilateral Resistance #1 loop at mid lux Equipment Used rail Reps/Minutes 20ft ea x2 laps Comments good posturing and self attention to foot clearance Manual Therapy Treatment Soft Tissue Mobilization hips Body Location B glutes max/ med & piriformis Mobilization Type Strumming Intensity/Depth Moderate Body Position Prone Comments manual states decreased tension, Ed for use ball wall over tight muscles for self relief. lumbar Body Location B ES, QL Mobilization Type Myofascial Release,Strumming, Sustained Pressure,Trigger Point Release Intensity/Depth Moderate Body Position Prone Comments manual, decrease in inferior tension near pelvic attachment Ed for use ball wall over tight muscles for self relief. Manual Traction LS manual traction Body Position Hooklying Reps/Duration use of strap behind calves vs long axis pull Comments good feedback stretch long axis pull PT-OP-R Modalities Start: 01/09/22 17:31 Freq: Status: Active Protocol: Document 02/03/22 13:49 [facility] (Rec: 02/03/22 14:43 [facility] [id number]) Hot Pack/Cold Pack Treatment Cold Pack Location LB Patient Position Prone Treatment Duration (minutes) 10 PT-OP-T Assessment and Plan Start: 01/09/22 17:31 Freq: Status: Active Protocol: Document 04/24/22 07:30 SP (Rec: 04/24/22 08:16 SP [id number]) Physical Therapy Assessment Goals standing 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 04/04/22: progressing: was doing well standign for 40 min without bothering her but after fall Wed and now 7-8 walking dog fo r1 hr and had to apply ice and rest. 04/24/22: usually pretty good not to much problems but only takes 1 wrong move like helping dog from attack and sets me back. LTG Duration 05/04 regression 04/24/22 stairs Short Term Goal (STG) Pt will be able to safely ascend stairs w/o rail reciprocally. 02/20 goal MET STG Duration 02/12/22 GOAL MET 02/20/22 Instructor [employer] Goal (LTG) Pt will be able to safely descend stairs w/o rail reciprocally. 02/20 goal MET LTG Duration 03/15/22 GOAL MET 02/20/22 balance Instructor [employer] Goal (LTG) Pt will be able to do SLS 20 sec B w/o lat shear of hip 02/20/22: progressing: RLE 5s, 3s, 7s; LLE 12 s, 10s, 5s 03/04-RLE 13 sec LLE 7 sec 04/04/22: GOAL MET: BLE 30 sec. 04/24/22: regression since dog attack recently: LLE 8s (less from 23-40s last tx) RLE:11 s (less from 30-40s last tx), improved post ther ex: RLE 16 sec, LLE 24s. LTG Duration 05/04 MET GOAL strength Short Term Goal (STG) Pt will be indep w/HEP STG Duration achieved advancing as needed Instructor [employer] Goal (LTG) Pt will score at least 3/5 on LPM in all planes and improve LE MMT to at least 4+/5 B to improve pt's gait and ability to lift and stand as needed 03/04-improved 03/26/22: added quick side stepping ladder drills for core/ hip abd strength. LTG Duration 05/04 progressin03/26/22 ZHANNA Impairment 13/50 Short Term Goal (STG) Pt will improve score to at least 8/50 to show improvement in functional ability. STG Duration achievd to 7/50 Intermediate Goal (LTG) Pt will improve score to at least 3/50 to show improvement in functional ability. LTG Duration 05/04 Assessment Summary Assessment Pt reports improved less pain but still there in B low back post manual and ther ex and able to perform SLS longer 8 sec RLE, 16sec LLE. Physical Therapy Plan Frequency and Duration Frequency of Treatment 2x/Week Plan of Care Start Date 03/04/22 Plan of Care End Date 05/04/22 Therapeutic Interventions Therapeutic Interventions Aquatic Therapy,Balance Training,Gait Training,Home Exercise Program,Joint Mobilizations,Manual Therapy, Neuromuscular Re-education, Patient/Caregiver Education, Self-Care/Home Management,Soft Tissue Mobilization,Taping, Therapeutic Activities, Therapeutic Exercises Modalities Cold Pack/Ice Massage,Electric Stimulation,Hot Packs Next Visit Focus/Plan Next Note Type Treatment Note Next Visit Plan PN due next tx, assess if ready for DC to HEP. Continue shuttle bal squats f/ side. POC: progress functional strengthening in standing. Continue per POC: Continue core stability progression, manual to lumbar and hips
--- NOTE | 2022-04-28 17:45 | PT.OTN ---
Current Diagnoses Pain in unspecified hip (04/28/22) Low back pain, unspecified (04/28/22) Difficulty in walking, not elsewhere classified (04/28/22) Unspecified abnormalities of gait and mobility (04/28/22) Abnormal posture (04/28/22) Weakness (04/28/22) Physical Therapy Treatment Note PT-OP-A Visit Information Start: 01/09/22 17:31 Freq: Status: Active Protocol: Document 04/28/22 15:22 [facility] (Rec: 04/28/22 17:45 [facility] [id number]) Out-Patient Physical Therapy Visit Information Visit Information Visit Type Progress Note Visit Note 07/29 Visit Start Time 15:20 Visit Stop Time 16:00 Total Visit Minutes 40 Visit Number 20 Number of ACID PUMP OPERATOR Visits 0 PT-OP-B Current Condition Start: 01/09/22 17:31 Freq: Status: Active Protocol: Document 01/13/22 14:35 [facility] (Rec: 01/13/22 15:28 [facility] [id number]) Current Condition History of Current Condition Onset Date worsening over past couple years Current Complaints LBP History of Current Condition Pt reprots back surgery L3-5 for fusion in 2014 and did do some PT after that. She had PT for that and since then has had to be careful re: lifting. She also has scoliosis. Pt reports the past 2 years, she feels like her back is bending fwd w/walking and when she sits and reads she bends fwd. She feels like she walks w/ like a rolling motion and L heel scrapes the ground. 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 Pt reports even standing even a couple min is painful to back. Pt does show her dog and she has trouble lifting him to the table if she has to do it too many times (dog 36 lb). Pt had hip dysplagia as baby and wore braces laying down. 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 She had pain thast was getting worse and worse which is what led to surgery. No specific injury. Reports LBP from [employer] and on. Pt still does do some of her pool exercises from last time and goes for a mile walk a day (is harder if done at end of day. Prior Treatments and Tests PT after surgery that was helpful; been to chiro (says back is twisted & he gets things straightens it out and it helps for 2 weeks)-goes 1x/ month at most up to every couple months Treatment Goals Patient/Caregiver Goals Improve strength of hips and improve gait pattern, determine if she needs to go see surgeon again, be abl eto go up/down stairs w/o rail use , dec back pain PT-OP-C Subjective Start: 01/09/22 17:31 Freq: Status: Active Protocol: Document 04/28/22 15:22 [facility] (Rec: 04/28/22 17:45 [facility] [id number]) OP-PT Subjective Patient Comments Patient Comments 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 She has been doing exercises at home. Some days balance is better than others. Back hasn't been hurting during work. She got new shoes since other ones have been worn. Back was doing great until her dog was attached. Pain is worst in AM and is better after self massage, walking around and exercises. 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 PT-OP-D Balance Start: 01/09/22 17:31 Freq: Status: Active Protocol: Document 01/13/22 14:35 [facility] (Rec: 01/13/22 15:28 [facility] [id number]) Balance Tests Single Limb Standing Single Limb- Right 6 sec w/lat shear Single Limb- Left 25 sec w/lat shear PT-OP-F Manual Assessment Start: 01/09/22 17:31 Freq: Status: Active Protocol: Document 01/13/22 14:35 [facility] (Rec: 01/13/22 15:28 [facility] [id number]) Manual Assessments Soft Tissue Assessment Soft Tissue Mobility Assessment tightness and tenderness: R>L ES, scar, QL, glutes, piriformis Joint Mobility Assessment Joint Mobility Assessment Iliac crest R higher than L; equal greater trochanters PT-OP-G Mobility & Gait Start: 01/09/22 17:31 Freq: Status: Active Protocol: Document 01/13/22 14:35 [facility] (Rec: 01/13/22 15:28 [facility] [id number]) OP Gait Assessment Comments Gait Comments lat lean over LLE and slower gait, dec push off PT-OP-J Posture/Palpation/Skin Start: 01/09/22 17:31 Freq: Status: Active Protocol: Document 04/28/22 15:22 [facility] (Rec: 04/28/22 17:45 [facility] [id number]) Posture Evaluation [facility] Postural Classification System Lumbar Protective Mechanism Left AP 2 Lumbar Protective Mechanism Right AP 2 Lumbar Protective Mechanism Left PA 3 Lumbar Protective Mechanism Right PA 3 PT-OP-K Range of Motion Start: 01/09/22 17:31 Freq: Status: Active Protocol: Document 01/13/22 14:35 [facility] (Rec: 01/13/22 15:28 [facility] [id number]) Lumbar Spine Range of Motion Lumbar Spine Active Extension 60 Rotation Left 33 Rotation Right 50 Lateral Flexion Left 50 Lateral Flexion Right 30 Comments flex w/PT guarding hips to sup patella; to ground; all motion at TL junction w/ext; pain B w/B SB; rot in deg; pain w/left rot PT-OP-L Special Tests Start: 01/09/22 17:31 Freq: Status: Active Protocol: Document 01/13/22 14:35 [facility] (Rec: 01/13/22 15:28 [facility] [id number]) Special Tests Lumbar Spine Special Tests Slump Test Results neg Straight Leg Raise Test Results R 58 deg w/back pain-dec if PF ,L 54 deg w/back pain- dec if PF PT-OP-M Strength Start: 01/09/22 17:31 Freq: Status: Active Protocol: Document 04/28/22 15:22 [facility] (Rec: 04/28/22 17:45 [facility] [id number]) Hip Strength Hip Manual Muscle Testing Right Flexion (L2) 4+ Good+ Extension (S1) 4- Good- Abduction 3+ Fair+ Adduction 5 Normal External Rotation 4+ Good+ Internal Rotation 4+ Good+ Left Flexion (L2) 4 Good Extension (S1) 4 Good Abduction 3+ Fair+ Adduction 5 Normal External Rotation 4 Good Internal Rotation 4+ Good+ Comments pain abd lat hip Knee Strength Knee Manual Muscle Testing Right Flexion (S2) 5 Normal Extension (L3) 5 Normal Left Flexion (S2) 5 Normal Extension (L3) 5 Normal Ankle/Foot Strength Ankle and Foot Manual Muscle Testing Right Dorsiflexion (L4) 5 Normal Plantarflexion (S1) 5 Normal Comments PF tested standing B Left Dorsiflexion (L4) 5 Normal Plantarflexion (S1) 5 Normal PT-OP-Q Treatments Start: 01/09/22 17:31 Freq: Status: Active Protocol: Document 04/28/22 15:22 [facility] (Rec: 04/28/22 17:45 [facility] [id number]) Therapeutic Exercises Sidelying Exercises hip abd Sidelying Exercise Name HEP reviewed Side bilateral Reps/Minutes 10 Manual Therapy Treatment Soft Tissue Mobilization hips Body Location L glutes max/ med & piriformis Mobilization Type Strumming Intensity/Depth Moderate Body Position Sidelying lumbar Body Location L>R ES, QL Mobilization Type Myofascial Release,Strumming, Sustained Pressure,Trigger Point Release Intensity/Depth Moderate Body Position Sidelying Self-Care/Home Management Treatment Education Other Education review verbally of [facility] PT-OP-R Modalities Start: 01/09/22 17:31 Freq: Status: Active Protocol: Document 02/03/22 13:49 [facility] (Rec: 02/03/22 14:43 [facility] [id number]) Hot Pack/Cold Pack Treatment Cold Pack Location LB Patient Position Prone Treatment Duration (minutes) 10 PT-OP-T Assessment and Plan Start: 01/09/22 17:31 Freq: Status: Active Protocol: Document 04/28/22 15:22 [facility] (Rec: 04/28/22 17:45 [facility] [id number]) Physical Therapy Assessment Goals standing Jail Goal (LTG) Pt will be able to stand as needed for work and at home w/ o inc pain greater than 2/10 02/20/22: (progressing 4/10 after 20 minutes of work, use of seated rest and ice diminishes symptoms). 04/04/22: progressing: was doing well standign for 40 min without bothering her but after fall Wed and now 7-810 walking dog fo r1 hr and had to apply ice and rest. 04/24/22: usually pretty good not to much problems but only takes 1 wrong move like helping dog from attack and sets me back. 10-can if moves around some ; 20 min to 30 min needed w/ class okay LTG Duration pt has not had to stand for more than 30 min but no pain w /that stairs Short Term Goal (STG) Pt will be able to safely ascend stairs w/o rail reciprocally. 02/20 goal MET STG Duration 02/12/22 GOAL MET 02/20/22 Jail Goal (LTG) Pt will be able to safely descend stairs w/o rail reciprocally. 02/20 goal MET LTG Duration 03/15/22 GOAL MET 02/20/22 balance Controlled Area Checker Goal (LTG) Pt will be able to do SLS 20 sec B w/o lat shear of hip 02/20/22: progressing: RLE 5s, 3s, 7s; LLE 12 s, 10s, 5s 03/04-RLE 13 sec LLE 7 sec 04/04/22: GOAL MET: BLE 30 sec. 04/24/22: regression since dog attack recently: LLE 8s (less from 23-40s last tx) RLE:11 s (less from 30-40s last tx), improved post ther ex: RLE 16 sec, LLE 24s. LTG Duration 05/04 MET GOAL strength Short Term Goal (STG) Pt will be indep w/HEP STG Duration achieved advancing as needed Jail Goal (LTG) Pt will score at least 3/5 on LPM in all planes and improve LE MMT to at least 4+/5 B to improve pt's gait and ability to lift and stand as needed 03/04-improved 03/26/22: added quick side stepping ladder drills for core/ hip abd strength. LTG Duration much improved ZHANNA Impairment 13/50 Short Term Goal (STG) Pt will improve score to at least 8/50 to show improvement in functional ability. STG Duration achievd to 7/50 Controlled Area Checker Goal (LTG) Pt will improve score to at least 3/50 to show improvement in functional ability. LTG Duration achieved 04/28 Assessment Summary Assessment Pt has met most goals at this time and was diong very well with very minimal back pain until about 10 days ago when [facility] had to break up a dog fight d/t a dog attacking her dog. Notes she is better now but still sometimes tweaks it and is sore in AMs. She is able to relieve pain w/her exercises and is indep w/HEP at this time so DC to HEP as pt has met most goals and is feeling ready to be indep. Physical Therapy Plan Therapeutic Interventions Modalities Cold Pack/Ice Massage,Electric Stimulation,Hot Packs Discharge Physical Therapy Discharge Reasons Goals Met
== END 2022-04-29 10:16 | disposition home or self-care (01) ==
LOC: PHYS 15:15
PROVIDERS: Family Provider Internal Medicine; PCP Internal Medicine; Referring Provider Internal Medicine; Visit Provider Internal Medicine
DX: R26.9 Unspecified abnormalities of gait and mobility (principal); M25.559 Pain in unspecified hip; M54.50 Low back pain, unspecified; R53.1 Weakness; R26.2 Difficulty in walking, not elsewhere classified; R29.3 Abnormal posture
CPT/HCPCS: 97110; 97112; 97116; 97140; 97162; 97530; 97750

== ENCOUNTER → 2022-07-24 07:03 | Outpatient (CLI) | payer MEDICARE, OTHER, SELFPAY ==
--- NOTE | 2022-07-24 | DI.MRI.S_ITS ---
PROCEDURE: MR ANKLE LT WO/W CON INDICATIONS: Other enthesopathy of left foot and ankle TECHNIQUE: Noncontrast sagittal T1 spin echo and T2 fast spin echo with fat saturation, axial proton density fast spin echo and T2 fast spin echo with fat saturation, axial T1 spin echo with fat saturation, coronal T1 spin echo and T2 fast spin echo with fat saturation through the ankle/hindfoot. Post-contrast axial, coronal, and sagittal T1 spin echo with fat saturation through the ankle/hindfoot. COMPARISON: None. FINDINGS: Image quality: Excellent. Bones and joints: Osteoarthritic changes are noted in midfoot and hindfoot joints with joint space narrowing, subchondral sclerosis and marginal osteophyte formation most notably involving midfoot joints at talonavicular joint and navicular cuneiform joints as well as 2nd and 3rd TMT joints. Suggestion of old healed injury involving dorsal aspect of talonavicular joint is seen with well corticated bony fragment. No suspicious osseous enhancement. No acute fracture or dislocation. No hindfoot coalitions. Mild edema involving lateral weight-bearing portion of talar dome with overlying cartilage defect suggestive of small osteochondral injury. Similar osteochondral injury involving adjacent posterior lateral periphery of distal tibial plafond is also seen. Small amount of tibiotalar and subtalar joint effusion is noted, no gross loose bodies. Medial structures: The posterior tibialis, flexor digitorum longus, and flexor hallucis longus tendons are thickened at the level of talonavicular joint with small amount of fluid distending tendon sheath. The posterior tibial neurovascular bundle appears normal within the tarsal tunnel, without extrinsic mass effect. The deep layer (anterior and posterior tibiotalar ligaments) and superficial layer (tibionavicular, tibiospring, and tibiocalcaneal ligaments) of the deltoid ligament appear normal. The spring ligament components (superomedial calcaneonavicular, medioplantar oblique calcaneonavicular, and inferoplantar longitudinal ligaments) are intact. Lateral structures: The anterior talofibular, calcaneofibular, and posterior talofibular ligaments appear thickened with intrasubstance T2 hyperintense signal. More superiorly, the anterior and posterior tibiofibular ligaments appear intact, as is the intermalleolar ligament. The tibiofibular syndesmosis is normal in width at 2 mm or less. The peroneus longus and brevis are mildly thickened at the level of mid to distal calcaneus and calcaneocuboid joint. Adjacent bony peroneal tubercle and retrotrochlear prominence are normal in size. The sinus tarsi demonstrates normal fatty signal, without edema, fibrosis, or cyst formation. Visualized sinus tarsi components (cervical ligament, interosseous talocalcaneal ligament, roots of the inferior extensor retinaculum) appear normal. The calcaneonavicular and calcaneocuboid components of the bifurcate ligament appear intact. The dorsal calcaneocuboid ligament appears intact. Anterior structures: The tibialis anterior, extensor hallucis longus, and extensor digitorum longus tendons appear intact. The dorsal talonavicular ligament appears thickened. Posterior and plantar structures: Achilles tendon is intact. Mildly thickened medial band its calcaneal insertion is seen with mild surrounding edema. No abductor digiti quinti muscle atrophy to suggest Thurston neuropathy. IMPRESSION: 1. Suggestion of old healed injury involving dorsal aspect of talonavicular joint with well corticated bony fragment. Mild sprain of dorsal talonavicular ligament. 2. [id number] midfoot and hindfoot joint osteoarthritis most notably in midfoot joints as above. No acute fracture or dislocation. Suggestion of tiny osteochondral injuries involving lateral weight-bearing portion of talar dome and adjacent distal tibial plafond. Small to moderate joint effusion, no gross loose bodies. 3. Tendinosis and low-grade tenosynovitis involving flexor tendons at the level of talonavicular joint and navicular bone. 4. Peroneus tendinosis and low-grade intrasubstance partial-thickness tear at the level of calcaneocuboid joint. 5. Sprain/low-grade intrasubstance partial-thickness tear involving anterior and posterior talofibular ligaments and calcaneofibular ligament. 6. Tiny plantar calcaneal enthesophyte with thickened medial band of plantar fascia at its calcaneal insertion suggestive of low-grade plantar fasciitis. 7. No abnormal intraosseous enhancement. No abnormal soft tissue enhancement. Dictated by: Talha Kirkland M.D. on 07/24/2022 at 10:41 Approved by: Talha Kirkland M.D. on 07/24/2022 at 11:54
== END ==
PROVIDERS: Family Provider Internal Medicine; PCP Internal Medicine; Referring Provider Podiatrist; Visit Provider Podiatrist
DX: M19.072 Primary osteoarthritis, left ankle and foot (principal); M77.52 Other enthesopathy of left foot and ankle; S93.492A Sprain of other ligament of left ankle, initial encounter; S93.412A Sprain of calcaneofibular ligament of left ankle, initial encounter; M65.872 Other synovitis and tenosynovitis, left ankle and foot; M25.475 Effusion, left foot
CPT/HCPCS: 73723

== ENCOUNTER → 2022-11-06 09:16 | Outpatient (CLI) | payer MEDICARE, OTHER, SELFPAY ==
[2022-11-06 10:30] LABS: Alanine Aminotransferase 21 IU/L (<35); Albumin 4.3 g/dL (3.5-5.0); Albumin Globulin Ratio 1.7 (1.0-2.8); Alkaline Phosphatase 173 U/L (38-126); Aspartate Aminotransferase 26 IU/L (14-36); BUN Creatinine Ratio 39.7 (6-22); Bilirubin Total 0.4 mg/dL (0.2-1.3); Blood Urea Nitrogen 54 mg/dL (7-17); Carbon Dioxide 23 mmol/L (22-32); Chloride 108 mmol/L (98-107); Cholesterol 183 mg/dL (140-199); Estimated Glomerular Filt Rate 42 mL/min (>60); Globulin 2.5 g/dL (1.7-4.1); Glucose 110 mg/dL (80-110); HDL Cholesterol 53 mg/dL (40-60); HEMOLYSIS < 15 (0-50); LDL Cholesterol Calculated 108 mg/dL (<100); Sodium 139 mmol/L (137-145); Total Protein 6.8 g/dL (6.3-8.2); Triglycerides 111 mg/dL (35-150)
[2022-11-06 10:33] LABS: Potassium 5.6 mmol/L (3.4-5.1)
[2022-11-07 06:10] LABS: Labcorp Hemoglobin (Hb) A1c 6.3 % (4.8-5.6)
== END ==
PROVIDERS: Family Provider Internal Medicine; PCP Internal Medicine; Referring Provider Internal Medicine; Visit Provider Internal Medicine
DX: E11.9 Type 2 diabetes mellitus without complications (principal); E78.2 Mixed hyperlipidemia; I10 Essential (primary) hypertension; N18.31 Chronic kidney disease, stage 3a
CPT/HCPCS: 36415; 80053; 80061; 83036

== ENCOUNTER → 2023-01-12 | Outpatient (CLI) | payer MEDICARE, OTHER, SELFPAY ==
--- NOTE | 2023-01-12 | DI.MG.S_ITS ---
BILATERAL DIGITAL SCREENING MAMMOGRAM 3D/2D WITH CAD: 01/12/2023 CLINICAL: Routine screening. Comparison is made to exams dated: 01/02/2022 mammogram, 12/31/2020 mammogram, and 12/31/2019 mammogram - [facility]. Both breasts are almost entirely fatty (category a/<25% glandular tissue). Current study was also evaluated with a Computer Aided Detection (CAD) system. No significant masses, calcifications, or other findings are seen in either breast. There has been no significant interval change. IMPRESSION: NEGATIVE There is no mammographic evidence of malignancy. A 1 year screening mammogram is recommended. Based on the Tyrer Cuzick model (a risk assessment model) the patient's lifetime risk is 3.6% and her 10 year risk is 2.2%. According to the ACR, ACS, and NCCN guidelines, an annual breast MRI exam along with mammogram is recommended if the patient's lifetime risk is 20% or greater. This exam was interpreted at Station ID: [id number]. NOTE: For mammograms, a report in lay terms will be sent to the patient. Approximately 15% of breast malignancies will not be visualized mammographically. In the management of a palpable breast mass, a negative mammogram must not discourage biopsy of a clinically suspicious lesion. Electronically Signed By: Asa dalal/[place]:01/19/2023 09:35:26 letter sent: Normal Exam ACR BI-RADS Category 1: Negative [id number]
== END ==
PROVIDERS: Family Provider Internal Medicine; PCP Internal Medicine; Referring Provider Internal Medicine; Visit Provider Internal Medicine
DX: Z12.31 Encounter for screening mammogram for malignant neoplasm of breast (principal)
CPT/HCPCS: 77063; 77067

== ENCOUNTER → 2023-05-06 07:00 | Outpatient (CLI) | payer MEDICARE, OTHER, SELFPAY ==
[2023-05-06 09:49] LABS: Alanine Aminotransferase 17 IU/L (<35); Albumin 4.2 g/dL (3.5-5.0); Albumin Globulin Ratio 1.5 (1.0-2.8); Alkaline Phosphatase 134 U/L (38-126); Aspartate Aminotransferase 24 IU/L (14-36); Bilirubin Total 0.2 mg/dL (0.2-1.3); Blood Urea Nitrogen 48 mg/dL (7-17); Calcium 9.9 mg/dL (8.4-10.2); Carbon Dioxide 21 mmol/L (22-32); Chloride 109 mmol/L (98-107); Cholesterol 188 mg/dL (140-199); Estimated Glomerular Filt Rate 42 mL/min (>60); Globulin 2.8 g/dL (1.7-4.1); Glucose 103 mg/dL (80-110); HDL Cholesterol 47 mg/dL (40-60); HEMOLYSIS < 15 (0-50); LDL Cholesterol Calculated 115 mg/dL (<100); Sodium 141 mmol/L (137-145); Triglycerides 131 mg/dL (35-150)
[2023-05-06 09:52] LABS: Hemoglobin A1C% w Est Avg Glu 6.2 % (4.0-6.0)
[2023-05-06 10:02] LABS: Potassium 5.9 mmol/L (3.4-5.1)
[2023-05-06 11:14] LABS: Creatinine Urine Random 91.6 mg/dL
[2023-05-06 11:19] LABS: Microalbumi Creatinin Ratio Ur 14.1 ug/mg CR (<30); Microalbumin Urine Random 1.3 mg/dL (0-1.6)
== END ==
PROVIDERS: Family Provider Internal Medicine; PCP Internal Medicine; Referring Provider Internal Medicine; Visit Provider Internal Medicine
DX: E11.9 Type 2 diabetes mellitus without complications (principal); N18.31 Chronic kidney disease, stage 3a; E78.2 Mixed hyperlipidemia; I10 Essential (primary) hypertension
CPT/HCPCS: 36415; 80053; 80061; 82043; 82570; 83036

== ENCOUNTER 2023-07-13 17:40 | Emergency (ER) | payer MEDICARE, OTHER, SELFPAY ==
[2023-07-13 17:57] VITALS: BP 188/86; PULSE 67; RESP 16; TEMP 36.1; O2SAT 98; BMI 37.5
--- NOTE | 2023-07-13 20:11 | ED_ITS ---
HPI - Wound/Laceration General Chief Complaint: Wound/Laceration Stated Complaint: cut left hand Time Seen by Provider: 07/13/23 20:03 Source: patient Mode of arrival: Ambulatory History of Present Illness HPI narrative: Patient is a 72-year-old female who is here for evaluation of a cut to the palm of her left hand. She cut it on a knife at home. He is unsure when her last tetanus shot was. Related Data Home Medications Medication Instructions Recorded Confirmed calcium carbonate 500 mg-vitamin 500 mg PO BID ##0 04/09/11 05/11/23 D3 5 mcg (200 unit) tablet (Oyster Shell Calcium-Vitamin D3) cholecalciferol (vitamin D3) 25 1,000 unit PO QDAY ##0 06/08/17 05/11/23 mcg (1,000 unit) tablet (Vitamin D3) metronidazole 0.75 % topical cream 1 applictn topical BID #0 grams 12/17/18 05/11/23 (MetroCream) cetirizine 10 mg tablet (Zyrtec) 10 mg PO DAILY PRN 11/12/21 05/11/23 mometasone 0.1 % topical solution 1 applic topical DAILY 11/12/21 05/11/23 tretinoin 0.025 % topical cream 1 applic topical 2XW 11/12/21 05/11/23 pimecrolimus 1 % topical cream 1 applic topical BID PRN 11/11/22 05/11/23 Previous Rx's Medication Instructions Recorded fluticasone propionate 50 1 spray intranasal HS ##16 09/28/17 mcg/actuation nasal spray,suspension albuterol sulfate 90 mcg/actuation 1 puff inhalation Q4-6H PRN 10/08/18 aerosol inhaler (Ventolin HFA) shortness of breath or wheezing #18 grams triamcinolone acetonide 0.1 % 1 applictn topical BID #30 grams 12/17/18 topical ointment hydrocortisone acetate 25 mg 25 mg CA BID PRN rectal pain #12 ea 05/17/20 rectal suppository alprazolam 0.5 mg tablet (Xanax) See Rx Instructions PO TID PRN 11/17/22 anxiety #90 tabs acyclovir 400 mg tablet 400 mg PO BID PRN cold sores #60 11/26/22 tabs gemfibrozil 600 mg tablet 600 mg PO BID #180 tabs 12/22/22 allopurinol 300 mg tablet 300 mg PO Q DAY #90 tabs 04/20/23 sertraline 50 mg tablet 100 mg (2 x 50 mg) PO QDAY #180 04/20/23 tabs metformin 1,000 mg tablet See Rx Instructions .Route 06/15/23 .COMPLEX #180 tabs clonazepam 0.5 mg tablet (Klonopin) 1 mg (2 x 0.5 mg) PO BID #360 tabs 06/24/23 Allergies Allergy/AdvReac Type Severity Reaction Status Date / Time latex [LATEX] Allergy Severe RASH/ITCHING/NAUSEA Verified 05/11/23 10:05 AND VOMITING pravastatin [PRAVASTATIN] Allergy Severe HIVES Verified 05/11/23 10:05 sulfamethizole Allergy Severe HIVES Verified 05/11/23 10:05 [SULFAMETHIZOLE] tobramycin Allergy Severe lower eye Verified 05/11/23 10:05 lids/cheek swellig. peeling skin trimethoprim [TRIMETHOPRIM] Allergy Severe HIVES Verified 05/11/23 10:05 onion Allergy Intermediate HIVES Verified 05/11/23 10:05 tomato Allergy Intermediate HIVES Verified 05/11/23 10:05 simvastatin [SIMVASTATIN] AdvReac Mild NAUSEA/ Verified 05/11/23 10:05 MUSCULAR PAIN INTERNAL SUTURES Allergy Severe THEY DO Uncoded 05/11/23 10:05 NOT DISOLVE WALNUTS Allergy Severe HIVES Uncoded 05/11/23 10:05 CANTELOPE Allergy Intermediate HIVES Uncoded 05/11/23 10:05 Review of Systems Constitutional Constitutional: Reports system reviewed and no additional complaints, except as documented Musculoskeletal Musculoskeletal: Reports system reviewed and no additional complaints, except as documented Integumentary/Breasts Skin/Breast: Reports system reviewed and no additional complaints, except as documented Neurologic Neurologic: Reports system reviewed and no additional complaints, except as documented Patient History Medical History Chronic renal failure, stage 3a H/O: pneumonia Abscess of left lung with pneumonia Wears glasses Metabolic syndrome Gout Chronic cough Asthma (1991) Migraines (~1979) Scoliosis (1965) Lumbar spine pain (1965) Finger fracture (1968) Eczema (~1979) Measles (1958) Mumps (1997) Herpes (1989) Hemorrhoids (2011) Surgical site infection (08/23/14) Hammertoe, bilateral Osteopenia (03/06/17) Morbid obesity with body mass index (BMI) of 40.0 to 44.9 in adult (12/25/15) Rosacea (09/25/15) Anxiety (~1960) Controlled diabetes mellitus (2012) Type 2 diabetes mellitus with hyperglycemia (10/26/12) History of renal calculi (2009) History of adenomatous polyp of colon (2009) Mixed hyperlipidemia (03/19/11) Recurrent major depressive disorder, in partial remission (03/19/11) Essential hypertension (03/19/11) Allergic rhinitis (1965) Surgical History History of surgery (08/25/14) History of surgery (08/23/14) History of foot surgery (07/16/09) History of foot surgery (12/2008) History of lithotripsy (05/28/10) History of lithotripsy (02/24/10) Status post laminectomy (07/27/14) Status post bunionectomy Family History Father Lung cancer Hypertension Stroke Alcoholic High cholesterol Grandfather Heart disease Heart attack Mother Family hx colonic polyps Hypertension Dementia Kidney failure Grandmother Cirrhosis Broken hip Grandmother Dementia Grandfather Appendicitis Sister No problems noted. Social History marital status: number of children: 0 household members: spouse lives independently: Yes caregiver/support person: No housing: house pets and animals: Yes education level: college occupational status: employed current occupational exposures/hazards: No el/baptist: [employer] travel history: over 6 months ago leisure activities: exercise, reading and other Smoking Status: Never smoker Tobacco: How many years used: 0 quit status: quit date established second hand exposure: Yes (Back in Childhood.) alcohol intake: never substance use type: does not use Smoking Status: Never smoker Substance Use Type: does not use Exam Initial Vital Signs Initial Vital Signs: Vital Signs Temperature 97.0 F L 07/13/23 17:57 Pulse Rate 67 07/13/23 17:57 Respiratory Rate 16 07/13/23 17:57 Blood Pressure 188/86 H 07/13/23 17:57 Pulse Oximetry 98 07/13/23 17:57 Oxygen Delivery Method Room Air 07/13/23 17:57 Cardio Pulses: radial pulses present on the left Skin Other: 2 cm laceration to the dorsum of the left hand Neuro Sensory Exam: no sensory deficits noted Procedures Laceration Repair Laceration 1: Site: hand Side (If applicable): left Size (cm): 2 Description: linear Depth: simple, single layer Pre-repair: wound explored Skin layer closed with: dermabond Course Orders Ordered: Discontinued Medications Diphtheria/Tetanus/Acell Pertussis (Tet,Diph,Pertuss(Acell),Vac/Pf 0.5 Ml Syringe) 0.5 ml IM .ONCE ONE Stop: 07/13/23 20:35 Last Admin: 07/13/23 20:38 Dose: 0.5 ml Documented By: HERNESTO Vital Signs Vital signs: Vital Signs - 8 hr 07/13/23 17:57 Temperature 97.0 F L Pulse Rate 67 Respiratory Rate 16 Blood Pressure 188/86 H Pulse Oximetry 98 Oxygen Delivery Method Room Air MDM - Wound/Laceration MDM Narrative Medical decision making narrative: Superficial wound to the palm of the left hand. Was closed with Dermabond and Steri-Strips. No foreign body. No indication for x-ray. Her tetanus was updated. She was given care instructions and return precautions. They expressed understanding and agreement with the plan. Discharge Plan Departure Patient Disposition: Home Clinical Impression: Hand laceration Instructions: DI for Laceration Repair-Skin Glue Activity Restrictions/Additional Instructions: You can cover your hand with a bandage. This will protect the wound and also the skin glue in the Steri-Strips. You can wash your hands however do not recommend some urgent your hands and anything for the next week. Return to the emergency department for new symptoms. Prescriptions: No Action calcium carbonate-vitamin D3 [Oyster Shell Calcium-Vit D3] 1,250 MG/200 IU tablet 500 mg PO BID Qty: 0 cholecalciferol (vitamin D3) [Vitamin D3] 1,000 UNIT tablet 1,000 unit PO QDAY Qty: 0 fluticasone propionate 16 GM spray,suspension 1 spray Intranasal HS Qty: 16 12RF albuterol sulfate [Ventolin HFA] 90 mcg/actuation HFA aerosol inhaler 1 puff INHALATION Q4-6H PRN (Reason: shortness of breath or wheezing) Qty: 18 12RF Rx Instructions: 1 - 2 puffs by mouth every 4-6 hours as needed metronidazole [MetroCream] 0.75 % cream 1 applictn Topical BID Qty: 0 alprazolam [Xanax] 0.5 mg tablet See Rx Instructions PO TID PRN (Reason: anxiety) Qty: 90 1RF Dose Instruction: 1-2 tabs PO TID PRN; Rx Instructions: 1-2 tabs PO TID PRN; acyclovir 400 mg tablet 400 mg PO BID PRN (Reason: cold sores) Qty: 60 3RF gemfibrozil 600 mg tablet 600 mg PO BID Qty: 180 3RF allopurinol 300 mg tablet 300 mg PO Q DAY Qty: 90 3RF sertraline 50 mg tablet 100 mg PO QDAY Qty: 180 3RF metformin 1,000 mg tablet See Rx Instructions .ROUTE .COMPLEX Qty: 180 3RF Dose Instruction: take 1 tablet by mouth twice a day Rx Instructions: take 1 tablet by mouth twice a day clonazepam [Klonopin] 0.5 mg tablet 1 mg PO BID Qty: 360 3RF triamcinolone acetonide 0.1 % ointment 1 applictn TOP BID Qty: 30 2RF mometasone 0.1 % solution 1 applic topical DAILY tretinoin 0.025 % cream 1 applic topical 2XW Patient Comments: Apply a half pea size amount to face and neck nightly at bedtime for two to three weeks then work your way up to a full pea size. cetirizine [Zyrtec] 10 mg tablet 10 mg PO DAILY PRN hydrocortisone acetate 25 mg suppository 25 mg CA BID PRN (Reason: rectal pain) Qty: 12 1RF pimecrolimus 1 % cream 1 applic topical BID PRN Referrals: Ray Gordon MD [Primary Care Provider] - Stand Alone Forms: Patient Portal/API
[2023-07-13] MEDS: TET,DIPH,PERTUSS(ACELL),VAC/PF 0.5 ML SYRINGE IM (20:38)
== END 2023-07-13 20:45 | disposition home or self-care (01) ==
PROVIDERS: Emergency Provider Emergency Medicine; Family Provider Internal Medicine; PCP Internal Medicine
DX: S61.412A Laceration without foreign body of left hand, initial encounter (principal); W26.0XXA Contact with knife, initial encounter; Z23 Encounter for immunization
CPT/HCPCS: 12001; 90471; 99283; 90715

== ENCOUNTER → 2023-11-02 09:25 | Outpatient (CLI) | payer OTHER, SELFPAY ==
[2023-11-02 11:10] LABS: Hemoglobin A1C% w Est Avg Glu 6.7 % (4.0-6.0)
[2023-11-02 11:24] LABS: Alanine Aminotransferase 17 IU/L (<35); Albumin 4.7 g/dL (3.5-5.0); Albumin Globulin Ratio 1.7 (1.0-2.8); Alkaline Phosphatase 141 U/L (38-126); Aspartate Aminotransferase 27 IU/L (14-36); BUN Creatinine Ratio 37.1 (6-22); Bilirubin Total 0.5 mg/dL (0.2-1.3); Blood Urea Nitrogen 56 mg/dL (7-17); Calcium 10.3 mg/dL (8.4-10.2); Carbon Dioxide 25 mmol/L (22-32); Chloride 109 mmol/L (98-107); Estimated Glomerular Filt Rate 37 mL/min (>60); Globulin 2.8 g/dL (1.7-4.1); Glucose 118 mg/dL (80-110); HEMOLYSIS < 15 (0-50); Sodium 141 mmol/L (137-145); Total Protein 7.5 g/dL (6.3-8.2)
[2023-11-02 11:26] LABS: Potassium 5.6 mmol/L (3.4-5.1)
== END ==
LOC: LAB 09:27
PROVIDERS: Family Provider Internal Medicine; PCP Internal Medicine; Referring Provider Internal Medicine; Visit Provider Internal Medicine
DX: E11.9 Type 2 diabetes mellitus without complications (principal); I12.9 Hypertensive chronic kidney disease with stage 1 through stage 4 chronic kidney disease, or unspecified chronic kidney disease; N18.31 Chronic kidney disease, stage 3a; E78.2 Mixed hyperlipidemia
CPT/HCPCS: 36415; 80053; 83036

== ENCOUNTER → 2023-11-23 09:49 | Outpatient (CLI) | payer OTHER, SELFPAY ==
--- NOTE | 2023-11-23 09:51 | DI.CT.S_ITS ---
PROCEDURE: CT LUMBAR SPINE WO CON INDICATIONS: Spinal stenosis, lumbar region with neurogenic cla TECHNIQUE: Noncontrast 3 mm thick sections acquired from the T12 level to the sacrum. Sagittal and coronal reformats were constructed. For radiation dose reduction, the following was used: automated exposure control. COMPARISON: [facility], CR, XR LUMBAR SPINE 2 OR 3 VIEWS, 11/17/2023, 9:19. FINDINGS: Image quality: Excellent Posterior fusion instrumentation with interbody spacer at L4-5. No hardware complication. Moderate levoscoliosis of the lumbar spine, centered at L3-4. Grade 1 anterolisthesis of L4 on L5. Vertebral body height of the lumbar spine is well maintained. Severe adjacent segment disease at L3-4. Axial levels: T12-L1: Unremarkable L1-2: Mild disc bulge. No stenosis. L2-3: Mild disc bulge. Mild central canal stenosis. Severe right neural foraminal stenosis. No left neural foraminal stenosis. L3-4: Disc bulge. Mild bilateral facet arthropathy. Moderate central canal stenosis. Severe right neural foraminal stenosis. Mild left neural foraminal stenosis. L4-5: Status post right laminotomy. Posterior disc uncovering. Limited evaluation of central canal stenosis given associated metal artifact. Mild right neural foraminal stenosis. No left neural foraminal stenosis. L5-S1: Mild disc bulge. No central canal stenosis. Mild right and severe left neural foraminal stenosis. Mild left facet arthropathy. Visualized sacrum is unremarkable. No abdominal aortic aneurysm. Moderate right, severe left hydronephrosis. No obstructive renal stone. Multiple large calcified gallstone. No bilateral hydroureter. IMPRESSION: 1. Posterior instrumentation with interbody spacer at L4-5. Right laminotomy at L4-5. No hardware complication. 2. Multilevel degenerate change of the lumbar spine, most pronounced at L3-4, where there is moderate central canal stenosis and severe right neural foraminal stenosis. 3. Moderate right, severe left hydronephrosis. Dictated by: Fabienne Agarwal M.D. on 11/23/2023 at 12:11 Approved by: Fabienne Agarwal M.D. on 11/23/2023 at 12:24
== END ==
LOC: CT 09:50
PROVIDERS: Family Provider Internal Medicine; PCP Internal Medicine; Referring Provider Orthopaedic Surgery Orthopaedic Surgery of the Spine; Visit Provider Orthopaedic Surgery Orthopaedic Surgery of the Spine
DX: M48.062 Spinal stenosis, lumbar region with neurogenic claudication (principal); M48.07 Spinal stenosis, lumbosacral region; M51.36 Other intervertebral disc degeneration, lumbar region; M51.37 Other intervertebral disc degeneration, lumbosacral region; M47.816 Spondylosis without myelopathy or radiculopathy, lumbar region; M47.817 Spondylosis without myelopathy or radiculopathy, lumbosacral region; K80.20 Calculus of gallbladder without cholecystitis without obstruction; N13.30 Unspecified hydronephrosis; Z98.1 Arthrodesis status; M41.9 Scoliosis, unspecified
CPT/HCPCS: 72131

== ENCOUNTER → 2023-12-17 11:08 | Outpatient (CLI) | payer OTHER, SELFPAY ==
--- NOTE | 2023-12-17 11:10 | DI.RAD.S_ITS ---
PROCEDURE: XR KUB INDICATIONS: Evaluate for kidney stones TECHNIQUE: One view of the abdomen acquired. COMPARISON: [facility], , KUB XRAY (1 VIEW ABDOMEN), 06/06/2010, 10:44. FINDINGS: Surgical changes and devices: None. Bowel: Bowel gas pattern is normal. Soft tissues: No suspicious abdominal calcifications. Visualized solid organ contours appear normal in size. No nephrolithiasis. Bones: No suspicious bony lesions. Surgical fusion of the lower lumbar spine. Convex left scoliosis. IMPRESSION: No nephrolithiasis. Dictated by: Keith Zimmer M.D. on 12/17/2023 at 13:33 Approved by: Keith Zimmer M.D. on 12/17/2023 at 13:37
== END ==
PROVIDERS: Family Provider Internal Medicine; PCP Internal Medicine; Referring Provider Urology; Visit Provider Urology
DX: Z09 Encounter for follow-up examination after completed treatment for conditions other than malignant neoplasm (principal); Z87.442 Personal history of urinary calculi; Z98.1 Arthrodesis status; M41.9 Scoliosis, unspecified
CPT/HCPCS: 74018

== ENCOUNTER 2023-12-29 09:50 | Day surgery (SDC) | payer OTHER, SELFPAY ==
[2023-12-24 09:29] VITALS: BMI 38.7
[2023-12-29 10:56] VITALS: BP 126/75; PULSE 70; RESP 18; TEMP 36.5; O2SAT 96; BMI 37.6
[2023-12-29] MEDS: LACTATED RINGERS 1,000 ML 21 ML IV (11:06)
--- NOTE | 2023-12-29 12:07 | PM.PREOP ---
Pre-operative Note COVID-19 COVID-19 status: Not tested Interval Note History & Physical reviewed/Exam performed by Physician: Yes Changes to H&P: No
[2023-12-29] MEDS: CEFAZOLIN 2 GM/100 ML PREMIX 100 ML IV (12:29)
--- NOTE | 2023-12-29 12:56 | SUR.OPER ---
Lithotomy on padded OR bed, head on pillow, arms secured on padded arm boards at <90 degrees abduction. Legs secured in padded yellow fins stirrups.
[2023-12-29 13:07] VITALS: BP 141/71; PULSE 73; RESP 14; TEMP 36.2; O2SAT 98
[2023-12-29] MEDS: iopamidoL 30 ML VIAL INJ (13:10)
[2023-12-29 13:12] VITALS: BP 144/69; PULSE 75; RESP 15; O2SAT 96
[2023-12-29 13:18] VITALS: BP 136/64; PULSE 71; RESP 14; O2SAT 97
[2023-12-29 13:22] VITALS: BP 146/74; PULSE 74; RESP 18; TEMP 36.2; O2SAT 97
[2023-12-29 13:27] VITALS: BP 140/70; PULSE 70; RESP 16; O2SAT 97
--- NOTE | 2023-12-29 13:27 | PM.OP.1 ---
Procedure & Clinicians Procedure: Cystoscopy with bilateral retrograde pyelogram Same procedure as scheduled: Yes Indications: This is a very pleasant 73-year-old female who presented with reported bilateral hydronephrosis. In review of her cross-sectional imaging it appeared as if she may have parapelvic cysts instead. She has had some bump in her creatinine comes at this time for cystoscopy retrograde pyelogram to more accurately evaluate her intrarenal anatomy. Surgeon: Alfredo Connolly Click Yes if Unassisted: Yes Anesthesia Type: General Operative Notes Findings: External genitalia shows some evidence of mild atrophic vaginitis. There looks like there maybe a small bland urethral caruncle. Urethra is normal along its length there is some descensus of the bladder floor ureteral orifices were otherwise in normal position with clear efflux. There was no abnormality within the bladder at retrograde pyelogram on the right side ureter was normal along its length as was the intrarenal collecting system which drained quite easily and quickly no filling defect outlined irregularity or other abnormality on the left side and was a normal retrograde pyelogram also. Both these drained without evidence of blockage and or resistance. Closure Type: not applicable Specimen(s): none sent Estimated Blood Loss (mL): 0 Procedure in detail: Procedure in detail: After informed consent was obtained, the patient was identified brought the operating room and placed in supine position on the table where anesthesia was induced to maintain. Showing an adequate level of anesthesia patient was transitioned to the lithotomy position where she was prepped, draped and prepared for Transurethral procedure. With this done and ensuring an adequate level of anesthesia after time-out administration of antibiotics a 22 Irish cystoscope was passed through the urethra in the bladder were cystoscopy formed. The right ureteral orifice was identified a 5 Irish cone-tip catheter was impacted in the right ureteral orifice after an open film was obtained collecting system was filled with a 50 50 mix of contrast and serial images taken. The cone-tip catheter was removed in the system was allowed to drain and vigorous flow was noted. The cone-tip catheter was then impacted in the left ureteral orifice and it also was filled with contrast under fluoroscopic visualization with signs and displays sales representative images being collected. This was allowed to drain with both systems drained and images obtained the catheter was removed the bladder was drained the scope was removed and the patient was awakened having tolerated the procedure well. There were no complications patient was transferred to the postanesthesia care unit for recovery to be discharged to home. Complications: none Post-operative Condition: stable Disposition: PACU Plan for aftercare: Patient to be discharged to home to follow up my office in 10-14 days.
== END 2023-12-29 13:51 | disposition home or self-care (01) ==
PROVIDERS: Family Provider Internal Medicine; PCP Internal Medicine; Referring Provider Urology; Visit Provider Urology
PROC: (CPT 52005; principal; 2023-12-29 11:30)
DX: N13.30 Unspecified hydronephrosis (principal); E11.22 Type 2 diabetes mellitus with diabetic chronic kidney disease; I12.9 Hypertensive chronic kidney disease with stage 1 through stage 4 chronic kidney disease, or unspecified chronic kidney disease; N18.31 Chronic kidney disease, stage 3a; N28.1 Cyst of kidney, acquired; J45.909 Unspecified asthma, uncomplicated; F41.8 Other specified anxiety disorders; E66.01 Morbid (severe) obesity due to excess calories; Z68.38 Body mass index [BMI] 38.0-38.9, adult; Z87.442 Personal history of urinary calculi; Z79.84 Long term (current) use of oral hypoglycemic drugs
CPT/HCPCS: 52005; J0690; J1100; J2250; J2405; J2704; J3010; Q9967

== ENCOUNTER → 2024-01-14 08:32 | Outpatient (CLI) | payer OTHER, SELFPAY ==
--- NOTE | 2024-01-14 08:32 | DI.MG.S_ITS ---
BILATERAL DIGITAL SCREENING MAMMOGRAM 3D/2D WITH CAD: 01/14/2024 CLINICAL: Routine screening. Comparison is made to exams dated: 01/12/2023 mammogram, 01/02/2022 mammogram, and 12/31/2020 mammogram - [facility]. Both breasts are almost entirely fatty (category a/<25% glandular tissue). Current study was also evaluated with a Computer Aided Detection (CAD) system. No significant masses, calcifications, or other findings are seen in either breast. There has been no significant interval change. IMPRESSION: NEGATIVE There is no mammographic evidence of malignancy. A 1 year screening mammogram is recommended. Based on the Tyrer Cuzick model (a risk assessment model) the patient's lifetime risk is 3.4% and her 10 year risk is 2.3%. According to the ACR, ACS, and NCCN guidelines, an annual breast MRI exam along with mammogram is recommended if the patient's lifetime risk is 20% or greater. This exam was interpreted at Station ID: [id number]. NOTE: For mammograms, a report in lay terms will be sent to the patient. Approximately 15% of breast malignancies will not be visualized mammographically. In the management of a palpable breast mass, a negative mammogram must not discourage biopsy of a clinically suspicious lesion. Electronically Signed By: Clark grace/argentina:01/14/2024 12:29:54 letter sent: Normal Exam ACR BI-RADS Category 1: Negative [id number]
== END ==
PROVIDERS: Family Provider Internal Medicine; PCP Internal Medicine; Referring Provider Internal Medicine; Visit Provider Internal Medicine
DX: Z12.31 Encounter for screening mammogram for malignant neoplasm of breast (principal); R92.313 Mammographic fatty tissue density, bilateral breasts
CPT/HCPCS: 77063; 77067

== ENCOUNTER → 2024-02-17 08:45 | Outpatient (CLI) | payer OTHER, SELFPAY ==
[2024-02-17 09:31] LABS: BUN Creatinine Ratio 31.5 (6-22); Blood Urea Nitrogen 47 mg/dL (7-17); Calcium 9.8 mg/dL (8.4-10.2); Carbon Dioxide 25 mmol/L (22-32); Chloride 106 mmol/L (98-107); Estimated Glomerular Filt Rate 37 mL/min (>60); Glucose 147 mg/dL (80-110); HEMOLYSIS < 15 (0-50); Potassium 4.5 mmol/L (3.4-5.1); Sodium 139 mmol/L (137-145)
== END ==
PROVIDERS: Family Provider Internal Medicine; PCP Internal Medicine; Referring Provider Internal Medicine; Visit Provider Internal Medicine
DX: E11.9 Type 2 diabetes mellitus without complications (principal); N18.31 Chronic kidney disease, stage 3a; I10 Essential (primary) hypertension
CPT/HCPCS: 36415; 80048; 83036

== ENCOUNTER → 2024-05-18 09:09 | Outpatient (CLI) | payer OTHER, SELFPAY ==
[2024-05-18 10:18] LABS: Hemoglobin A1C% w Est Avg Glu 6.7 % (4.0-6.0)
[2024-05-18 10:31] LABS: Alanine Aminotransferase 13 IU/L (<35); Albumin 4.3 g/dL (3.5-5.0); Albumin Globulin Ratio 1.7 (1.0-2.8); Alkaline Phosphatase 179 U/L (38-126); Aspartate Aminotransferase 24 IU/L (14-36); BUN Creatinine Ratio 34.8 (6-22); Bilirubin Total 0.5 mg/dL (0.2-1.3); Blood Urea Nitrogen 46 mg/dL (7-17); Calcium 10.2 mg/dL (8.4-10.2); Carbon Dioxide 25 mmol/L (22-32); Chloride 104 mmol/L (98-107); Cholesterol 134 mg/dL (140-199); Estimated Glomerular Filt Rate 43 mL/min (>60); Globulin 2.5 g/dL (1.7-4.1); Glucose 130 mg/dL (80-110); HDL Cholesterol 52 mg/dL (40-60); HEMOLYSIS < 15 (0-50); LDL Cholesterol Calculated 67 mg/dL (<100); Sodium 138 mmol/L (137-145); Total Protein 6.8 g/dL (6.3-8.2); Triglycerides 77 mg/dL (35-150)
[2024-05-18 10:32] LABS: Potassium 5.4 mmol/L (3.4-5.1)
[2024-05-18 10:53] LABS: Creatinine Urine Random 73.85 mg/dL
[2024-05-18 10:58] LABS: Microalbumin Urine Random 2.4 mg/dL (0-1.6)
== END ==
PROVIDERS: Family Provider Internal Medicine; PCP Internal Medicine; Referring Provider Internal Medicine; Visit Provider Internal Medicine
DX: I12.9 Hypertensive chronic kidney disease with stage 1 through stage 4 chronic kidney disease, or unspecified chronic kidney disease (principal); N18.31 Chronic kidney disease, stage 3a; E78.2 Mixed hyperlipidemia; E11.22 Type 2 diabetes mellitus with diabetic chronic kidney disease; N36.2 Urethral caruncle; R31.21 Asymptomatic microscopic hematuria
CPT/HCPCS: 36415; 80053; 80061; 82043; 82570; 83036

== ENCOUNTER → 2024-07-06 08:07 | Outpatient (CLI) | payer OTHER, SELFPAY | PROVIDERS: Family Provider Internal Medicine; PCP Internal Medicine; Referring Provider Urology; Visit Provider Urology | DX: N36.2 Urethral caruncle (principal); R31.21 Asymptomatic microscopic hematuria | CPT/HCPCS: 87086 ==

== ENCOUNTER → 2024-11-17 08:08 | Outpatient (CLI) | payer OTHER, SELFPAY ==
[2024-11-17 09:30] LABS: Hemoglobin A1C% w Est Avg Glu 5.7 % (4.0-6.0)
[2024-11-17 09:46] LABS: Alanine Aminotransferase 16 IU/L (<35); Albumin 4.4 g/dL (3.5-5.0); Alkaline Phosphatase 165 U/L (38-126); Aspartate Aminotransferase 25 IU/L (14-36); BUN Creatinine Ratio 40.3 (6-22); Bilirubin Total 0.4 mg/dL (0.2-1.3); Blood Urea Nitrogen 58 mg/dL (7-17); Calcium 10.1 mg/dL (8.4-10.2); Carbon Dioxide 19 mmol/L (22-32); Chloride 111 mmol/L (98-107); Cholesterol 160 mg/dL (140-199); Estimated Glomerular Filt Rate 39 mL/min (>60); Globulin 2.2 g/dL (1.7-4.1); Glucose 100 mg/dL (70-99); HDL Cholesterol 51 mg/dL (40-60); HEMOLYSIS < 15 (0-50); LDL Cholesterol Calculated 92 mg/dL (<100); Sodium 142 mmol/L (137-145); Total Protein 6.6 g/dL (6.3-8.2); Triglycerides 83 mg/dL (35-150)
[2024-11-17 09:47] LABS: Potassium 5.5 mmol/L (3.4-5.1)
== END ==
PROVIDERS: Family Provider Internal Medicine; PCP Internal Medicine; Referring Provider Internal Medicine; Visit Provider Internal Medicine
DX: E11.9 Type 2 diabetes mellitus without complications (principal); I12.9 Hypertensive chronic kidney disease with stage 1 through stage 4 chronic kidney disease, or unspecified chronic kidney disease; N18.31 Chronic kidney disease, stage 3a; E78.2 Mixed hyperlipidemia
CPT/HCPCS: 36415; 80053; 80061; 83036

== ENCOUNTER → 2025-01-09 12:01 | Outpatient (CLI) | payer OTHER, SELFPAY | PROVIDERS: PCP Internal Medicine; Visit Provider Urology | DX: R39.9 Unspecified symptoms and signs involving the genitourinary system (principal) | CPT/HCPCS: 87086 ==

== ENCOUNTER → 2025-01-14 07:58 | Outpatient (CLI) | payer OTHER, SELFPAY ==
--- NOTE | 2025-01-14 07:59 | DI.MG.S_ITS ---
MM screening mammo BI: 01/14/2025. BI-RADS: 1 CLINICAL: 74-year old female for bilateral screening mammogram. Tyrer-Cuzick lifetime risk of 5.6%. No personal or first-degree family history of breast cancer. PRIOR EXAMS 01/14/2024, 01/12/2023, 01/02/2022, 12/31/2020. MAMMOGRAPHY TECHNIQUE: 2D and 3D (tomosynthesis) digital mammographic views obtained, with additional images as needed for full coverage. Current study was also evaluated with a Computer Aided Detection (CAD) system. DENSITY B. There are scattered areas of fibroglandular density. MAMMOGRAPHY FINDINGS Bilateral: No suspicious mass, asymmetry, microcalcification, or other abnormality seen. IMPRESSION: * No evidence of malignancy. RECOMMENDATIONS Bilateral * Annual screening mammography. OVERALL ASSESSMENT CATEGORY BI-RADS-1: Negative. The [employer] recommends annual screening mammography beginning at age 40 for women with average risk of breast cancer. ELECTRONICALLY SIGNED: Casey Mullen M.D. on 01/15/2025 at 10:56:00 PM PT Interpreting Station ID: [id number]
== END ==
PROVIDERS: PCP Internal Medicine; Referring Provider Internal Medicine; Visit Provider Internal Medicine
DX: Z12.31 Encounter for screening mammogram for malignant neoplasm of breast (principal)
CPT/HCPCS: 77063; 77067

== ENCOUNTER 2025-01-23 07:26 | Day surgery (SDC) | payer OTHER, SELFPAY ==
[2025-01-23 07:44] VITALS: BP 126/76; PULSE 17; RESP 99; TEMP 36.2
--- NOTE | 2025-01-23 08:54 | PM.HP.IH.1 ---
History of Present Illness History of Present Illness Date Patient Seen: 01/23/25 Chief complaint: SDC Narrative: Five year follow-up for history of polyps. [facility] Medical History Parapelvic renal cyst Diabetic nephropathy Urethral caruncle Asymptomatic microscopic hematuria HLD (hyperlipidemia) Hx of diabetes mellitus Hx of osteoarthritis Hx of chronic arthritis Chronic renal failure, stage 3a H/O: pneumonia Wears glasses Metabolic syndrome Gout Chronic cough Asthma (1991) Migraines (~1979) Scoliosis (1965) Lumbar spine pain (1965) Finger fracture (1968) Eczema (~1979) Measles (1958) Mumps (1997) Herpes (1989) Hemorrhoids (2011) Surgical site infection (08/23/14) Hammertoe, bilateral Osteopenia (03/06/17) Morbid obesity with body mass index (BMI) of 40.0 to 44.9 in adult (12/25/15) Rosacea (09/25/15) Anxiety (~1959) Controlled diabetes mellitus (2012) Type 2 diabetes mellitus with hyperglycemia (10/26/12) History of renal calculi (2009) History of adenomatous polyp of colon (2009) Mixed hyperlipidemia (03/19/11) Recurrent major depressive disorder, in partial remission (03/19/11) Essential hypertension (03/19/11) Allergic rhinitis (1965) Surgical History History of surgery (08/25/14) History of surgery (08/23/14) History of foot surgery (07/16/09) History of foot surgery (12/2008) History of lithotripsy (05/28/10) History of lithotripsy (02/24/10) Status post laminectomy (07/27/14) Family History Father Lung cancer Hypertension Stroke Alcoholic High cholesterol Cancer Gout Hyperlipidemia Grandfather Heart disease Heart attack Mother Family hx colonic polyps Hypertension Dementia Kidney failure Anxiety Grandmother Cirrhosis Broken hip Grandmother Dementia Grandfather Appendicitis Sister Eczema Migraines Social History marital status: number of children: 0 household members: spouse lives independently: Yes caregiver/support person: No housing: house pets and animals: Yes education level: college occupational status: employed current occupational exposures/hazards: No el/judaism: Adventist travel history: over 6 months ago leisure activities: exercise, reading and other Smoking Status: Never smoker Tobacco: How many years used: 0 quit status: quit date established second hand exposure: Yes (Back in Childhood.) alcohol intake: never substance use type: does not use caffeine: Yes Type(s) of exercise: walking frequency: 3-4 times per week duration: 45-60 minutes/day Meds Home Medications and Allergies Home Medications ?Medication ?Instructions ?Recorded ?Confirmed ?Type calcium 500 mg (as 500 mg PO BID ##0 04/09/11 01/09/25 History carbonate)-vitamin D3 5 mcg (200 unit) tablet (Oyster Shell Calcium-Vitamin D3) fluticasone propionate 50 1 spray intranasal HS ##16 09/28/17 01/09/25 Rx mcg/actuation nasal spray,suspension metronidazole 0.75 % topical cream 1 applictn topical BID #0 grams 12/17/18 01/09/25 History (MetroCream) triamcinolone acetonide 0.1 % 1 applictn topical BID #30 grams 12/17/18 01/09/25 Rx topical ointment hydrocortisone acetate 25 mg 25 mg CO BID PRN rectal pain #12 ea 05/17/20 01/09/25 Rx rectal suppository cetirizine 10 mg tablet (Zyrtec) 10 mg PO DAILY PRN Allergic 11/12/21 01/09/25 History Symptoms mometasone 0.1 % topical solution 1 applic topical DAILY 11/12/21 01/09/25 History tretinoin 0.025 % topical cream 1 applic topical 2XW 11/12/21 01/09/25 History albuterol sulfate 90 mcg/actuation 1 puff inhalation Q4-6H PRN 08/17/23 01/09/25 Rx aerosol inhaler (Ventolin HFA) shortness of breath or wheezing #18 grams estradiol 0.01% (0.1 mg/gram) 1 g vaginal 2XW #42.5 grams 02/22/24 01/09/25 Rx vaginal cream acyclovir 400 mg tablet 400 mg PO BID PRN cold sores #60 02/25/24 01/09/25 Rx tabs sertraline 50 mg tablet 100 mg (2 x 50 mg) PO QDAY #180 03/31/24 01/09/25 Rx tabs lisinopril 5 mg tablet 5 mg PO DAILY #90 tabs 05/23/24 01/09/25 Rx alprazolam 0.5 mg tablet (Xanax) See Rx Instructions PO TID PRN 05/24/24 01/09/25 Rx anxiety #30 tabs allopurinol 300 mg tablet 300 mg PO Q DAY #90 tabs 07/28/24 01/09/25 Rx metformin 1,000 mg tablet See Rx Instructions .Route 11/07/24 01/09/25 Rx .COMPLEX #180 tabs Glucosamine - Chondroitin 1 tab PO BID 11/21/24 01/09/25 History gemfibrozil 600 mg tablet 600 mg PO BID #180 tabs 12/01/24 01/09/25 Rx sodium,potassium,mag sulfates 17.5 See Rx Instructions PO .COMPLEX 12/15/24 01/09/25 Rx gram-3.13 gram-1.6 gram oral soln #354 mL (Suprep Bowel Prep Kit) clonazepam 0.5 mg tablet (Klonopin) 1 mg (2 x 0.5 mg) PO BID #360 tabs 01/23/25 Rx Allergies Allergy/AdvReac Type Severity Reaction Status Date / Time latex (LATEX) Allergy Severe RASH/ITCHING/NAUSEA Verified 01/23/25 07:39 AND VOMITING pravastatin (PRAVASTATIN) Allergy Severe HIVES Verified 01/23/25 07:39 sulfamethizole Allergy Severe HIVES Verified 01/23/25 07:39 (SULFAMETHIZOLE) tobramycin Allergy Severe lower eye Verified 01/23/25 07:39 lids/cheek swellig. peeling skin trimethoprim (TRIMETHOPRIM) Allergy Severe HIVES Verified 01/23/25 07:39 onion Allergy Intermediate HIVES Verified 01/23/25 07:39 tomato Allergy Intermediate HIVES Verified 01/23/25 07:39 simvastatin (SIMVASTATIN) AdvReac Mild NAUSEA/ Verified 01/23/25 07:39 MUSCULAR PAIN INTERNAL SUTURES Allergy Severe THEY DO Uncoded 01/23/25 07:39 NOT DISOLVE WALNUTS Allergy Severe HIVES Uncoded 01/23/25 07:39 CANTELOPE Allergy Intermediate HIVES Uncoded 01/23/25 07:39 Exam Vital Signs (past 8 hours): - 01/23/25 07:44 Temperature 97.1 F L Pulse Rate 17 L Respiratory Rate 99 H Blood Pressure 126/76 Oxygen Delivery Method Room Air Oxygen Delivery Method Room Air Narrative Exam Narrative: Oropharynx free of lesions Chest clear to auscultation percussion Cardiac exam reveals no S3 or murmur Objective Labs Labs: Laboratory Results - last 24 hr 01/23/25 08:03 POC Whole Bld Glucose 99 Assessment & Plan Assessment & Plan narrative: History of polyps need for follow-up colonoscopy. Risks, have been explained. Time-Based Coding :: [TOTAL MINUTES] spent with patient and on the chart (including review of chart, obtaining history, exam, reviewing outside data, placing orders, documenting exam and treatment plan, and counseling patient) on [DATE]. PROFEE Plate Stacker Document charge(s): No
--- NOTE | 2025-01-23 08:56 | PM.OP.COLON ---
Operative Date/Time/Diagnoses Date of procedure: 01/23/25 Time of procedure: 09:18 Pre-op diagnosis: See indication and findings Post-op diagnosis: same Procedure & Clinicians Study performed: Colonoscopy Same procedure(s) as scheduled: Yes Indications: History of polyps Surgeon: Alexis Acosta Anesthesia Type: Other Procedure Notes Procedure in detail: After informed consent was obtained the patient was placed in left lateral decubitus position. The video colonoscope was inserted into the rectum slowly advanced cecum. Preparation was good. On slow withdrawal mucosa was carefully examined. The scope was removed. The patient tolerated procedure well. Blood loss none Complications none Sedation mac Findings 1. Normal colonoscopy to cecum Patient should have colonoscopy in 5 years
[2025-01-23 09:24] VITALS: BP 84/49; PULSE 52; RESP 12; TEMP 36.1; O2SAT 96
[2025-01-23 09:28] VITALS: BP 85/46; PULSE 47; RESP 14; O2SAT 99
[2025-01-23 09:34] VITALS: BP 90/54; PULSE 58; RESP 13; TEMP 36.1; O2SAT 97
== END 2025-01-23 09:57 | disposition home or self-care (01) ==
PROVIDERS: PCP Internal Medicine; Referring Provider Internal Medicine Gastroenterology; Visit Provider Internal Medicine Gastroenterology
PROC: 0DJD8ZZ Inspection of Lower Intestinal Tract, Via Natural or Artificial Opening Endoscopic (ICD-10-PCS; CPT 45378; principal; 2025-01-23 08:30)
DX: Z12.11 Encounter for screening for malignant neoplasm of colon (principal); Z86.0100 Personal history of colon polyps, unspecified; E11.22 Type 2 diabetes mellitus with diabetic chronic kidney disease; I12.9 Hypertensive chronic kidney disease with stage 1 through stage 4 chronic kidney disease, or unspecified chronic kidney disease; N18.31 Chronic kidney disease, stage 3a; E78.5 Hyperlipidemia, unspecified; F41.9 Anxiety disorder, unspecified; E11.21 Type 2 diabetes mellitus with diabetic nephropathy; Z79.84 Long term (current) use of oral hypoglycemic drugs; E66.01 Morbid (severe) obesity due to excess calories; Z68.41 Body mass index [BMI] 40.0-44.9, adult
CPT/HCPCS: G0105; 82962; J2704

== ENCOUNTER → 2025-05-17 09:18 | Outpatient (CLI) | payer OTHER, SELFPAY ==
[2025-05-17 10:13] LABS: Add Manual Diff / Slide Review NO; Hematocrit 36.5 % (36-46); Hemoglobin 12.1 g/dL (12.0-16.0); Lymphocytes Absolute Auto 1100 /uL (1100-4500); Mean Corpuscular HGB Conc 33.3 % (30-36); Mean Corpuscular Hemoglobin 30.7 PG (26-34); Mean Corpuscular Volume 92.3 fL (80-100); Platelet Count 250 X10^3/uL (150-400)
[2025-05-17 10:24] LABS: Hemoglobin A1C% w Est Avg Glu 5.9 % (4.0-6.0)
[2025-05-17 10:34] LABS: Alanine Aminotransferase 13 IU/L (<35); Albumin 4.1 g/dL (3.5-5.0); Albumin Globulin Ratio 1.7 (1.0-2.8); Alkaline Phosphatase 137 U/L (38-126); Blood Urea Nitrogen 40 mg/dL (7-17); Calcium 9.5 mg/dL (8.4-10.2); Carbon Dioxide 20 mmol/L (22-32); Chloride 109 mmol/L (98-107); Cholesterol 154 mg/dL (140-199); Estimated Glomerular Filt Rate 45 mL/min (>60); Globulin 2.4 g/dL (1.7-4.1); Glucose 95 mg/dL (70-99); HDL Cholesterol 53 mg/dL (40-60); HEMOLYSIS < 15 (0-50); Sodium 139 mmol/L (137-145); Total Protein 6.5 g/dL (6.3-8.2); Triglycerides 98 mg/dL (35-150)
[2025-05-17 10:35] LABS: Potassium 5.4 mmol/L (3.4-5.1)
== END ==
PROVIDERS: PCP Internal Medicine; Referring Provider Internal Medicine; Visit Provider Internal Medicine
DX: I10 Essential (primary) hypertension (principal); E11.9 Type 2 diabetes mellitus without complications; E78.2 Mixed hyperlipidemia
CPT/HCPCS: 36415; 80053; 80061; 83036; 85025